=== PATIENT | male | born 1945 | race Caucasian/White ===

== ENCOUNTER 2017-01-26 11:17 | Inpatient (IN) | payer OTHER ==
[~2017-01-26] VITALS: Ht 182.8 cm; Wt 81.9 kg
--- NOTE | ~2017-01-26 | PR ---
[place], [place] PROGRESS NOTE NAME: NICHOLE DISLA UNIT #: [id number] ROOM: 525 DOCTOR: RIGO KILLIAN MD,TIARA BIRTHDATE: [birth year] DOS: 02/01/2017 SUBJECTIVE: The patient has been noted comfortable and continued to show reduction in symptoms of shortness of breath. Denies symptoms of chest pain. Coughing has been improving and the patient was noted with some edema of the lower extremities. He has been ambulating with assistance and getting physical therapy. OBJECTIVE: VITAL SIGNS: Normal temperature, respiratory rate 18, heart rate 63, blood pressure 137/77. The intake is 1250, output 1550 mL, negative fluid balance approximately 200 mL, pulse oxygen 97% saturation recorded on 3 L nasal cannula. HEENT: Noted without any acute changes. Chronic right corneal opacification. CARDIOVASCULAR: S1, S2 audible. LUNGS: The patient noted to have reduction of the breath sounds without any wheezing. There were no crackles. ABDOMEN: Soft and nontender. LABORATORY DATA: CBC this morning, mild anemia, otherwise normal. BMP of the patient was noted BUN 41, creatinine was normal. CO2 of 34. IMPRESSION: Progressive resolution of acute on chronic hypercapnic hypoxic respiratory failure with exacerbation of chronic obstructive pulmonary disease, other symptoms progressively. Mild edema of the lower extremity noted because of the steroids. PLAN OF MANAGEMENT: Change the Solu-Medrol to daily dose to 40 mg. Continuation of other therapy, plan of management and discharge plan, could be started for home discharge. Other supportive therapy, plan and management and care. Usual treatment. TIARA SIERRA MD CM:PNTRANS [phone] TIARA KILLIAN MD 02/01/17 1110 interface
--- NOTE | ~2017-01-26 | PR ---
[place], [place] PROGRESS NOTE NAME: NICHOLE DISLA UNIT #: [id number] ROOM: [facility] DOCTOR: ITARA FELIPE MD BIRTHDATE: [birth year] DOS: 01/30/2017 SUBJECTIVE: He has been noted awake and alert. Denies symptoms of chest pain. Shortness of breath has been improving. Coughing has been resolving; using the BiPAP as advised. There were no symptoms of chest pain or any abdominal pain. OBJECTIVE: VITAL SIGNS: Shows normal temperature this morning, respiratory rate 16, heart rate 76, blood pressure 124/70. Pulse oxygen saturation recorded as 97% BiPAP with nasal cannula 96% saturation. HEENT: Shows no new change. NECK: Supple. CARDIOVASCULAR: S1, S2 audible. LUNGS: Moderately to severely reduced breath sounds bilaterally, scattered wheezing, no crackles. ABDOMEN: Soft, nontender. LABORATORY DATA: CBC: WBC count was normal, platelet count normal, hemoglobin of 11.4, hematocrit of 37.5. BMP of the patient this morning noted BUN 45, creatinine was normal, carbon dioxide 36. CT scan of the chest completed yesterday without contrast was personally reviewed, shows area of small atelectasis, infiltration noted immediately in the left lower lobe consistent with findings of the chest x-ray. The findings were consistent with acute pneumonia with some area of atelectasis. There was no pulmonary nodules or lung mass. Diffuse emphysematous changes were noted as well. There was no abnormal mediastinal or hilar lymphadenopathy. IMPRESSION: The patient has been noted with current gradual improvement in [id number]-[id number] severe hypercapnic hypoxic respiratory failure with acute pneumonia in the left lower lobe are responding to the treatment progressively. PLAN OF MANAGEMENT: No changes in the therapy at this time. Continue the patient's current therapy. Plan as ordered. Usual care, other supportive plan of treatment and care. [place], [place] PROGRESS NOTE NAME: NICHOLE DISLA UNIT #: [id number] ROOM: [facility] DOCTOR: TIARA FELIPE MD BIRTHDATE: [birth year] TIARA SIERRA MD CM:PNTRANS [phone] TIARA KILLIAN MD 01/30/172209 interface
--- NOTE | ~2017-01-26 | PR ---
[place], [place] PROGRESS NOTE NAME: NICHOLE DISLA UNIT #: [id number] ROOM: 525 DOCTOR: TIARA FELIPE MD BIRTHDATE: [birth year] DOS: 02/02/2017 SUBJECTIVE: The patient has been noted comfortable at this time without any distress. There were no symptoms of coughing, chest pain, or any sputum expectoration noted. The patient has been using oxygen supplementation with nasal cannula. OBJECTIVE: VITAL SIGNS: Recorded shows his temperature was noted as normal. Respiratory rate recorded as 18, heart rate of 91, and blood pressure 126/66. Pulse oxygen saturation on 3 L nasal cannula was 95% saturation. HEENT: Shows no acute change. NECK: Supple. CARDIOVASCULAR: S1, S2 audible. LUNGS: Noted with decreased breath sounds in the lungs bilaterally. There were no crackles. ABDOMEN: Soft, nontender. LABORATORY DATA: The patient's chest x-ray this morning, the patient was noted with evidence of small pleural fluid and basilar areas of atelectasis. Arterial blood gases, which was done previously showed pH 7.33, pCO2 of 56, pO2 of 95. Earlier in the morning, CBC with normal WBC count, hemoglobin 11, and hematocrit 38.7. BMP that was done this morning showed BUN 42, creatinine was normal, and CO2 was 37. IMPRESSION: 1. Resolving acute hypoxic and hypercapnic respiratory failure. 2. Chronic metabolic alkalosis which is also improving progressively. 3. The patient with bilateral pleural fluid with possibly superimposed congestive heart failure would be considered. PLAN OF TREATMENT: Solu-Medrol dose has been changed to 40 mg daily. Consider diuretic therapy. Continue the current dose of Diamox 250 mg b.i.d., which has been previously decreased. [place], [place] PROGRESS NOTE NAME: NICHOLE DISLA UNIT #: [id number] ROOM: 525 DOCTOR: TIARA FELIPE MD BIRTHDATE: [birth year] TIARA SIERRA MD CM:PNTRANS [phone] TIARA KILLIAN MD 02/02/17 1430 interface
--- NOTE | ~2017-01-26 | CON ---
[place], [place] REPORT OF CONSULTATION NAME: NICHOLE DISLA UNIT #: [id number] ROOM: [facility] DOCTOR: RIGO KILLIAN MD,TIARA BIRTHDATE: [birth year] DOS: 01/27/2017 REASON FOR CONSULTATION: To assess the patient's current abnormal chest x-ray and the respiratory status. HISTORY OF PRESENT ILLNESS: The history was obtained from review of the medical records documentation and the past history of patient on this documentations previously. The patient is not able to give me any history by himself accurately. PAST MEDICAL HISTORY: 1. Known with history of advanced end-stage COPD. 2. History of chronic nicotine dependence. 3. Essential hypertension. 4. Vitamin D deficiency. 5. Past history of tuberculosis diagnosed and treated in 1989. It has been noted inactive. SOCIAL HISTORY: Reported as the patient lived at home. There was no history of alcohol use or any illicit drug use. The patient has been known with history of drinking beer in the past. Tobacco use for this patient noted as about a pack of cigarettes per day since teenager. Not sure if the patient is smoking cigarettes at this time. He has been known with history of Agent Butler exposure in the [place] in [place]. FAMILY HISTORY: Unknown. SURGICAL HISTORY: Surgical history was described as none. MEDICATIONS: Current medication listed as use of Lasix, Diamox, aspirin, Norvasc, Dulera, sliding scale insulin coverage, IV Solu-Medrol 60 mg q.8 hours, DuoNeb, Levaquin, and other p.r.n. medications. DRUG ALLERGIES: Noted as allergy to the NOVOCAIN. PHYSICAL EXAMINATION: GENERAL: A 72-year-old white male currently noted on the BiPAP without any acute distress. Height of 6 feet, weight 180 pounds, BMI 24.4 recorded. VITAL SIGNS: Shows temperature noted as normal, respiratory rate of 16 -18. Heart rate of 78-80. Blood pressure 130/79 - 149/95. Pulse oxygen saturation noted with the BiPAP 50% oxygen 91-92% saturation. HEENT: Examination shows head was atraumatic. Eyes nonicterus, loss of muscles of mastication, and temporal muscle mass loss. CARDIOVASCULAR SYSTEM: S1, S2 audible. LUNGS: Severe general reduction. Other breath sounds noted in the lungs bilaterally. ABDOMEN: Noted as flat, soft, nontender. EXTREMITIES: Shows loss of muscle mass. The patient without edema, clubbing, or cyanosis. CENTRAL NERVOUS SYSTEM: No gross focal deficit. Further examination could not [place], [place] REPORT OF CONSULTATION NAME: NICHOLE DISLA UNIT #: [id number] ROOM: [facility] DOCTOR: RIGO KILLIAN MD,TIARA BIRTHDATE: [birth year] be performed for this patient. SKIN: Shows some area of bruising of the skin in different areas with dryness of the skin. No lesions. MUSCULOSKELETAL: There were no gross deformity seen. LABORATORY DATA: The lactic acid yesterday noted on admission as normal. PT/PTT yesterday noted as normal. CBC on 01/26/2017: The patient's hemoglobin 11.3, hematocrit were normal, WBC count normal, platelet count 94,000. CMP of the patient 01/26/2017 noted as normal BUN and creatinine. CO2 was 58, chloride of 92. CPK was normal. Troponin was normal yesterday as well. Arterial blood gas of the patient that was done on admission yesterday 100% oxygen supplementation, pH 7.34, pCO2 107, pO2 of 54 on nonrebreather mask. Arterial blood gas which was done about 4 hours later with use of the BiPAP; pH of 7.38, pCO2 94, pO2 64.7 with 50% oxygen settings of 12/8. CMP this morning remains normal BUN and creatinine. The CO2 level was noted at 40, chloride of 94. CBC that was done 01/27/2017 shows mild anemia, platelet count was improved, were noted partially better at 116,000 today. Chest x-ray that was done for this patient shows evidence of infiltration and/or atelectasis, possibility of a nodular density in the left lower lobe. Unfortunately, the x-ray could not be personally reviewed because of the not working PAC system for this patient. IMPRESSION: 1. The patient who has been currently admitted to the hospital noted with changes in mental status with acute exacerbation of chronic obstructive pulmonary disease and acute bronchitis with possibility of ____ pneumonia in the left lower lobe to be considered. 2. Possibility of nodular density in the left lower lobe cannot be completely excluded with the chest x-ray. 3. The patient with history of chronic nicotine dependence as well. I am not sure if the patient is actively smoking cigarettes at this time. 4. Acute thrombocytopenia which was noted on admission was noted to be partially improved but still noted low given evidence of any active major bleed. 5. Acute exacerbation of chronic obstructive pulmonary disease and acute bronchitis for this patient as well. 6. Severe metabolic alkalosis secondary to chronic hypercarbia responding to the treatment with acetazolamide from yesterday. PLAN OF TREATMENT: The patient will be continued on current dose of steroids, bronchodilators and antibiotics. The patient has been ordered a CT scan by the primary care attending, which we will place on hold because of the patient's current instability and the CT scan will not add any immediate treatment changes in this patient. Upon medical stabilization, CT scan of the chest will be obtained for monitoring clear view. Continue antibiotics for the patient as previously ordered. Obtain the sputum for Gram stain and culture. Supportive therapy, plan of management, other care and treatment. Usual care, other supportive plan of management. Additional change in the treatment will be done based on the progression of the illness. Continue use of the BiPAP, setting will be changed for this patient because of severe relative hypoxia. The patient with a setting of 14/10 to optimize the oxygenation. The ventilation component was also noted optimal on the current BiPAP. Nicotine replacement [place], [place] REPORT OF CONSULTATION NAME: NICHOLE DISLA UNIT #: [id number] ROOM: [facility] DOCTOR: TIARA FELIPE MD BIRTHDATE: [birth year] patches will be ordered for the patient to overcome any nicotine withdrawal. If the patient's respiratory status worsens and the patient still remains in the intensive care unit, he might need to be intubated and started on mechanical ventilation at that time. At this time, there is no immediate need for intubation or use of mechanical ventilation for this patient. As the patient completed the high dose of Diamox yesterday, we will be starting lower dose for the patient today after completion of 6 initial doses of 500 mg 3 times a day. Thanks for allowing me to participate in the care of this patient. TIARA SIERRA MD CM:CONSTR:REPORT OF CONSULTATION 1454 01/28/17 0106 interface
--- NOTE | ~2017-01-26 | PR ---
[place], [place] PROGRESS NOTE NAME: NICHOLE DISLA UNIT #: [id number] ROOM: 525 DOCTOR: TIARA FELIPE MD BIRTHDATE: [birth year] DOS: 01/31/2017 SUBJECTIVE: He has been noted comfortable at this time without any distress. The patient's shortness of breath has been improving. The coughing has been noted decreased. Denies symptoms of chest pain. He has been using the oxygen supplementation and has not used the BiPAP last night. The patient sat on his chair. OBJECTIVE: VITAL SIGNS: For the patient, which was recorded shows the temperature noted as normal. The respiratory rate of the patient was recorded as 20. The heart rate was noted as 79. Blood pressure 102/50. Pulse oxygen saturation of the patient noted on 3 liters 95% saturation. HEENT: Examination shows no acute change. NECK: Supple. CARDIOVASCULAR: S1, S2 audible. LUNGS: Moderate decreased breath sounds bilaterally. ABDOMEN: Soft, nontender. LABORATORY DATA: CBC of 01/31/2017 noted normal WBC count. BMP for the patient was noted as BUN 50, creatinine was normal, glucose 158, CO2 35. IMPRESSION: 1. Resolving acute hypercapnic hypoxic respiratory failure with exacerbation of chronic obstructive pulmonary disease progressively. 2. The patient with severe debility with suspected protein calorie malnutrition. PLAN OF MANAGEMENT: Agreed for transfer of the patient from the intensive care unit to the other floor. Decrease the Solu-Medrol dose for this patient to 40 mg b.i.d. reduced from 60 mg b.i.d. Other supportive therapy, plan of management and care. Usual treatment. Additional change in treatment done based on progression of the illness. [place], [place] PROGRESS NOTE NAME: NICHOLE DISLA UNIT #: [id number] ROOM: 525 DOCTOR: TIARA FELIPE MD BIRTHDATE: [birth year] TIARA SIERRA MD CM:PNTRANS [phone] TIARA KILLIAN MD 01/31/17 1200 interface
--- NOTE | ~2017-01-26 | PR ---
[place], [place] PROGRESS NOTE NAME: NICHOLE DISLA UNIT #: [id number] ROOM: [facility] DOCTOR: RIGO KILLIAN MD,TIARA BIRTHDATE: [birth year] DOS: 01/29/2017 SUBJECTIVE: He has been noted much more awake and alert this morning. The patient denies symptoms of chest pain. The coughing has been noted decreased. The cough has been noted mostly nonproductive. Shortness of breath was improving. He has been using the BiPAP as recommended. OBJECTIVE: VITAL SIGNS: Showed normal temperature, respiratory rate 14, heart rate 72, blood pressure 116/80-109/66. Pulse oxygen saturation of the patient noted on 3 liters nasal canula 94% saturation. BiPAP 40% oxygen ____ was 98% saturation earlier. HEENT: Right cornea opacification which is chronic. NECK: Supple. CARDIOVASCULAR: S1, S2 audible. LUNGS: General reduction in the breath sounds bilaterally with expiratory wheezing. ABDOMEN: Soft, nontender and flat. EXTREMITIES: Shows mild edema. LABORATORY DATA: CMP this morning, BUN 45, creatinine was normal. Potassium 3.4. CO2 was 37. CBC: WBC count 11.6, hemoglobin 38.3, platelet count was normal and WBC count was normal. IMPRESSION: 1. Resolving severe acute hypercapnic and hypoxic respiratory failure. 2. Resolving severe metabolic alkalosis. 3. Hyperkalemia secondary to diuretic therapy and the Diamox. 4. Rule out pulmonary nodule. The patient versus atelectasis of the left lower lobe. PLAN OF MANAGEMENT: Continuation of the current therapy, plan of management at this time. Obtained the CT scan of the chest for this patient for assessment to rule out any pulmonary nodule in the right lower lobe. Supplementation of potassium. Other supportive plan of management and care. Usual treatment and other therapies. Additional treatment changes will be done based on the progression of the illness. The patient could be transferred from the intensive care unit to telemetry floor for continued medical management of his [id number] hypercapnic hypoxic respiratory failure and exacerbation of chronic obstructive pulmonary disease. [place], [place] PROGRESS NOTE NAME: NICHOLE DISLA UNIT #: [id number] ROOM: [facility] DOCTOR: TIARA FELIPE MD BIRTHDATE: [birth year] TIARA SIERRA MD CM:BENTRANS [phone] TIARA KILLIAN MD 01/30/17 1225 interface
--- NOTE | ~2017-01-26 | PR ---
[place], [place] PROGRESS NOTE NAME: NICHOLE DISLA UNIT #: [id number] ROOM: [facility] DOCTOR: RIGO KILLIAN MD,TIARA BIRTHDATE: [birth year] DOS: 01/28/2017 PULMONARY FOLLOWUP SUBJECTIVE: He has been noted fully awake and alert without any disorientation, yesterday noted with some agitation. Arterial blood gases were done for the patient shows appropriate improvement in the pH. The oxygenation was also noted, partially improved. The patient was started ____ of p.r.n. management of any agitation and anxiety. This morning, the patient noted fully awake and alert. Has used the BiPAP last night. OBJECTIVE: VITAL SIGNS: Normal temperature, respiratory rate 19, heart rate 89, blood pressure 104/62. Intake is 1040, output were not recorded, pulse oxygen saturation was recorded as 97% with the BiPAP and the oxygen supplementation nasal cannula. HEENT: Examination shows no acute change. NECK: Supple. CARDIOVASCULAR: S1, S2 audible. LUNGS: The patient was noted without any wheezing or crackles at the present time. Breaths are noted generally diminished bilaterally. ABDOMEN: Soft, nontender. LABORATORY DATA: CBC today: WBC count were noted normal, hemoglobin 11.5, hematocrit 37.9, platelet count noted 122,000. The BMP of patient was noted as BUN 30, creatinine was normal, glucose 157, CO2 was 38. IMPRESSION: 1. The patient has been currently noted with resolving acute on chronic hypercapnic and hypoxic respiratory failure gradually. 2. Acute exacerbation of chronic obstructive pulmonary disease. 3. History of nicotine dependence. PLAN OF MANAGEMENT: 1. Continuation of bronchodilators, oxygen supplementation. The hypercarbia has been improving significantly. Metabolic alkalosis was also noted markedly improved. CO2 level was noted less than 40. The potassium level noted within normal limits. 2. History of nicotine abuse. 3. Protein calorie malnutrition status. PLAN OF TREATMENT: Continue nutritional support. Continue the BiPAP, oxygen supplementation, bronchodilators, decrease the dose of Solu-Medrol. All other supportive plan of therapy and care as previously. Obtain the prealbumin level. [place], [place] PROGRESS NOTE NAME: NICHOLE DISLA UNIT #: [id number] ROOM: [facility] DOCTOR: RIGO KILLIAN MD,TIARA BIRTHDATE: [birth year] TIARA SIERRA MD CM:PNTRANS [phone] TIARA KILLIAN MD 01/28/17 1017 interface
[~2017-01-26 11:17] MED LIST: ACETAZOLAMIDE250 MG PO; AMLODIPINE BESYL5 MG PO; ASPIRIN81 M1 PO; CHOLECALCIFEROL1 CRY PO; LASIX40 MG PO; LEVAQUIN500 M2 PO; LISINOPRIL30 MG PO; NICODERM C21 MG/24 H TD; OXYGEN NAS; PREDNISONE10 MG PO; SYMBICORT1 AE1 INH; [UNRECOGNIZED DRUG - REMARK] NEB
[2017-01-26 11:27] VITALS: BP 130/79
[2017-01-26 11:46] LABS: ABG BASE EXCESS 26.2 mmol/L (-2.0-2.0); ARTERIAL BLOOD GAS PH 7.347 (7.35-7.45); ARTERIAL BLOOD GAS PO2 54.6 mmHg (80-90)
[2017-01-26 11:48] LABS: ABG CO2 CONTENT 60.2 mmol/L (23-27)
[2017-01-26 12:01] LABS: HEMOGLOBIN 11.3 g/dl (14.0-18.0); MEAN CELL VOLUME 109.4 fl (80.0-94.0); MEAN CORPUSCULAR HGB 29.4 pg (27.0-31.0); MEAN CORPUSCULAR HGB CONC 26.9 g/dl (33.0-37.0); MEAN PLATELET VOLUME 10.3 fl (9.6-12.3); PLATELET COUNT AUTOMATED 94 10*3/uL (130-400); RED BLOOD COUNT 3.84 10*6/uL (4.50-5.90); RED CELL DISTRI WIDTH 13.2 % (0-14.5); WHITE BLOOD COUNT 6.7 10*3/uL (4.8-10.8)
[2017-01-26 12:11] LABS: PROTHROMBIN TIME 10.9 SECONDS (9.0-12.4)
[2017-01-26 12:17] VITALS: BP 123/80
[2017-01-26 12:19] LABS: ALKALINE PHOSPHATASE 50 U/L (45-117); BILIRUBIN, TOTAL 0.4 mg/dl (0.2-1.0); BUN 17 mg/dl (7-24); CHLORIDE 92 mmol/L (98-107); CPK 23 U/L (39-308); EST GLOM FILT AFRICAN AMERICAN > 60 ml/min; GLUCOSE 116 mg/dL (65-99); MAGNESIUM 1.9 mg/dL (1.5-2.1); POTASSIUM 4.2 mmol/L (3.5-5.1); SGOT/AST 12 IU/L (3-35); SGPT/ALT 9 U/L (12-78); SODIUM 145 mmol/L (136-145); TOTAL PROTEIN 6.2 gm/dL (6.4-8.2)
[2017-01-26 12:20] LABS: TROPONIN I 0.017 ng/ml (<0.045)
[2017-01-26 12:21] LABS: EOSINOPHIL # 0.1 10*3/uL (0-0.4); EOSINOPHILS 2 % (1-4); LYMPHOCYTE # 1.7 10*3/uL (1.3-4.4); METAMYELOCYTES 1 % (0-0); NEUTROPHIL # 4.8 10*3/uL (2.3-7.9); NEUTROPHILS 71 % (47-73); PLATELET SUFFICIENCY LOW (NORMAL); TOTAL CELLS COUNTED 100 #CELLS
[2017-01-26 12:23] LABS: STOMATOCYTE MODERATE
[2017-01-26 12:31] LABS: CARBON DIOXIDE 58 mmol/L (21-32)
[2017-01-26 12:36] VITALS: BP 123/80
[2017-01-26 13:28] VITALS: BP 122/73
[2017-01-26] MEDS ORDERED: VITAMIN B-12100 MCG PO (13:39)
[2017-01-26 15:26] LABS: ABG BASE EXCESS 25.6 mmol/L (-2.0-2.0); ABG CO2 CONTENT 58.5 mmol/L (23-27); ABG HCO3 55.6 mmol/l (22-26); ABG TEMPERATURE 98.6 F (98.0-99.0); ARTERIAL BLOOD GAS PH 7.387 (7.35-7.45); ARTERIAL BLOOD GAS PO2 64.7 mmHg (80-90)
[2017-01-26 16:00] VITALS: BP 130/80
[2017-01-26 20:00] VITALS: BP 132/80
[2017-01-27] VITALS: BP 138/96
[2017-01-27 04:00] VITALS: BP 149/95
[2017-01-27 06:24] LABS: HEMOGLOBIN A1c 5.6 % (4.8-5.6)
[2017-01-27 06:37] LABS: ALBUMIN 3.2 gm/dl (3.1-4.5); ALKALINE PHOSPHATASE 51 U/L (45-117); BILIRUBIN, TOTAL 0.6 mg/dl (0.2-1.0); BUN 17 mg/dl (7-24); CARBON DIOXIDE 40 mmol/L (21-32); CHLORIDE 94 mmol/L (98-107); CHOLESTEROL 162 mg/dL (<200); EST GLOM FILT AFRICAN AMERICAN > 60 ml/min; FREE T4 1.08 ng/dl (0.76-1.46); GLUCOSE 135 mg/dL (65-99); HDL CHOLESTEROL 72 mg/dl (40-60); LDL CHOLESTEROL 75 mg/dL (9-159); POTASSIUM 3.9 mmol/L (3.5-5.1); SGOT/AST 12 IU/L (3-35); SGPT/ALT 11 U/L (12-78); SODIUM 140 mmol/L (136-145); TOTAL PROTEIN 6.9 gm/dL (6.4-8.2); TRIGLYCERIDES 76 mg/dl (<150); VLDL CHOLESTEROL 15 mg/dL (6-40)
[2017-01-27 06:42] LABS: THYROID STIM HORMONE (HS) 0.155 uIU/ml (0.358-4.75)
[2017-01-27 06:50] LABS: BASO % 0.2 % (0.0-1.0); HEMOGLOBIN 11.9 g/dl (14.0-18.0); IG # 0.1 10*3/uL (0.0-0.1); LYMPH # 0.7 10*3/uL (1.3-4.4); LYMPH % 13.1 % (27.0-41.0); MEAN CORPUSCULAR HGB 28.9 pg (27.0-31.0); MEAN CORPUSCULAR HGB CONC 28.3 g/dl (33.0-37.0); MEAN PLATELET VOLUME 11.2 fl (9.6-12.3); MONO # 0.1 10*3/uL (0.1-1.0); MONO % 1.7 % (3.0-9.0); NEUT # 4.6 10*3/uL (2.3-7.9); NEUT % 84.1 % (47.0-73.0); PLATELET COUNT AUTOMATED 116 10*3/uL (130-400); RED BLOOD COUNT 4.12 10*6/uL (4.50-5.90); WHITE BLOOD COUNT 5.4 10*3/uL (4.8-10.8)
[2017-01-27 06:51] LABS: MEAN CELL VOLUME 101.9 fl (80.0-94.0)
[2017-01-27 08:00] VITALS: BP 137/84
[2017-01-27 12:00] VITALS: BP 130/74
[2017-01-27 16:00] VITALS: BP 124/80; BP 149/92
[2017-01-27 18:26] LABS: ABG CO2 CONTENT 40.3 mmol/L (23-27); ABG HCO3 38.3 mmol/l (22-26); ARTERIAL BLOOD GAS PH 7.386 (7.35-7.45); ARTERIAL BLOOD GAS PO2 76.8 mmHg (80-90)
[2017-01-27 20:00] VITALS: BP 119/73
[2017-01-27 21:10] LABS: BILIRUBIN NEGATIVE (NEGATIVE); BLOOD NEGATIVE (NEGATIVE); CLARITY CLEAR (CLEAR); COLOR YELLOW (YELLOW); GLUCOSE NEGATIVE (NEGATIVE); KETONE NEGATIVE (NEGATIVE); LEUKO ESTERASE NEGATIVE (NEGATIVE); NITRITE NEGATIVE (NEGATIVE); PROTEIN TRACE (NEGATIVE); UROBILINOGEN 0.2 E.U./dl (0.2-1.0)
[2017-01-27 21:25] LABS: BACTERIA TRACE; URINE REFLEX COMMENT NO (NO)
[2017-01-28] VITALS: BP 130/85
[2017-01-28 04:00] VITALS: BP 140/88
[2017-01-28 06:20] LABS: BILIRUBIN, TOTAL 0.3 mg/dl (0.2-1.0); CARBON DIOXIDE 38 mmol/L (21-32); CHLORIDE 98 mmol/L (98-107); EST GLOM FILT AFRICAN AMERICAN > 60 ml/min; GLUCOSE 157 mg/dL (65-99); POTASSIUM 3.5 mmol/L (3.5-5.1); SGOT/AST 12 IU/L (3-35); SGPT/ALT 12 U/L (12-78); SODIUM 138 mmol/L (136-145); TOTAL PROTEIN 6.4 gm/dL (6.4-8.2)
[2017-01-28 06:21] LABS: BASO % 0.1 % (0.0-1.0); HEMATOCRIT 37.9 % (42.0-52.0); HEMOGLOBIN 11.5 g/dl (14.0-18.0); LYMPH # 0.5 10*3/uL (1.3-4.4); LYMPH % 6.4 % (27.0-41.0); MEAN CORPUSCULAR HGB 29.8 pg (27.0-31.0); MEAN CORPUSCULAR HGB CONC 30.3 g/dl (33.0-37.0); MEAN PLATELET VOLUME 11.1 fl (9.6-12.3); MONO # 0.3 10*3/uL (0.1-1.0); MONO % 3.6 % (3.0-9.0); NEUT # 6.7 10*3/uL (2.3-7.9); NEUT % 89.5 % (47.0-73.0); PLATELET COUNT AUTOMATED 122 10*3/uL (130-400); RED BLOOD COUNT 3.86 10*6/uL (4.50-5.90); RED CELL DISTRI WIDTH 13.5 % (0-14.5); WHITE BLOOD COUNT 7.5 10*3/uL (4.8-10.8)
[2017-01-28 06:22] LABS: ALKALINE PHOSPHATASE 43 U/L (45-117)
[2017-01-28 06:28] LABS: BUN 30 mg/dl (7-24)
[2017-01-28 06:40] LABS: MEAN CELL VOLUME 98.2 fl (80.0-94.0)
[2017-01-28 08:00] VITALS: BP 104/62
[2017-01-28 12:00] VITALS: BP 111/83
[2017-01-28 16:00] VITALS: BP 110/72
[2017-01-28 20:00] VITALS: BP 111/69
[2017-01-29] VITALS: BP 104/67
[2017-01-29 04:00] VITALS: BP 109/66
[2017-01-29 05:55] LABS: BILIRUBIN, TOTAL 0.2 mg/dl (0.2-1.0); CARBON DIOXIDE 37 mmol/L (21-32); CHLORIDE 96 mmol/L (98-107); EST GLOM FILT AFRICAN AMERICAN > 60 ml/min; GLUCOSE 169 mg/dL (65-99); POTASSIUM 3.4 mmol/L (3.5-5.1); SGOT/AST 10 IU/L (3-35); SGPT/ALT 7 U/L (12-78); SODIUM 138 mmol/L (136-145); TOTAL PROTEIN 6.2 gm/dL (6.4-8.2)
[2017-01-29 05:56] LABS: ALKALINE PHOSPHATASE 45 U/L (45-117)
[2017-01-29 05:58] LABS: HEMATOCRIT 38.3 % (42.0-52.0); HEMOGLOBIN 11.6 g/dl (14.0-18.0); IG # 0.1 10*3/uL (0.0-0.1); LYMPH # 0.8 10*3/uL (1.3-4.4); LYMPH % 8.1 % (27.0-41.0); MEAN CELL VOLUME 98.2 fl (80.0-94.0); MEAN CORPUSCULAR HGB 29.7 pg (27.0-31.0); MEAN CORPUSCULAR HGB CONC 30.3 g/dl (33.0-37.0); MEAN PLATELET VOLUME 10.9 fl (9.6-12.3); MONO # 0.7 10*3/uL (0.1-1.0); MONO % 7.3 % (3.0-9.0); NEUT # 7.8 10*3/uL (2.3-7.9); NEUT % 83.8 % (47.0-73.0); PLATELET COUNT AUTOMATED 122 10*3/uL (130-400); RED CELL DISTRI WIDTH 13.7 % (0-14.5); WHITE BLOOD COUNT 9.3 10*3/uL (4.8-10.8)
[2017-01-29 06:00] LABS: BUN 45 mg/dl (7-24)
[2017-01-29 08:00] VITALS: BP 116/80
[2017-01-29 12:00] VITALS: BP 96/57
[2017-01-29 14:18] LABS: FOLIC ACID 10.36 ng/mL (>5.38)
[2017-01-29 16:00] VITALS: BP 101/68
[2017-01-29 20:00] VITALS: BP 103/62
[2017-01-30] VITALS: BP 96/58
[2017-01-30 04:00] VITALS: BP 117/77
[2017-01-30 05:55] LABS: BUN 45 mg/dl (7-24); CARBON DIOXIDE 36 mmol/L (21-32); CHLORIDE 100 mmol/L (98-107); EST GLOM FILT AFRICAN AMERICAN > 60 ml/min; GLUCOSE 158 mg/dL (65-99); SODIUM 141 mmol/L (136-145)
[2017-01-30 06:05] LABS: HEMATOCRIT 37.5 % (42.0-52.0); HEMOGLOBIN 11.4 g/dl (14.0-18.0); IG # 0.1 10*3/uL (0.0-0.1); LYMPH # 0.8 10*3/uL (1.3-4.4); LYMPH % 9.2 % (27.0-41.0); MEAN CELL VOLUME 97.9 fl (80.0-94.0); MEAN CORPUSCULAR HGB 29.8 pg (27.0-31.0); MEAN CORPUSCULAR HGB CONC 30.4 g/dl (33.0-37.0); MONO # 0.6 10*3/uL (0.1-1.0); MONO % 6.6 % (3.0-9.0); NEUT # 7.6 10*3/uL (2.3-7.9); NEUT % 83.6 % (47.0-73.0); PLATELET COUNT AUTOMATED 115 10*3/uL (130-400); RED BLOOD COUNT 3.83 10*6/uL (4.50-5.90); RED CELL DISTRI WIDTH 13.8 % (0-14.5)
[2017-01-30 08:00] VITALS: BP 124/70
[2017-01-30 16:00] VITALS: BP 101/57
[2017-01-30 20:00] VITALS: BP 93/60
[2017-01-31] VITALS: BP 108/66
[2017-01-31 05:59] LABS: BUN 50 mg/dl (7-24); CARBON DIOXIDE 35 mmol/L (21-32); CHLORIDE 102 mmol/L (98-107); EST GLOM FILT AFRICAN AMERICAN > 60 ml/min; GLUCOSE 158 mg/dL (65-99); SODIUM 140 mmol/L (136-145)
[2017-01-31 06:12] LABS: HEMATOCRIT 40.2 % (42.0-52.0); LYMPH # 0.8 10*3/uL (1.3-4.4); LYMPH % 8.8 % (27.0-41.0); MEAN CELL VOLUME 97.3 fl (80.0-94.0); MEAN CORPUSCULAR HGB 29.1 pg (27.0-31.0); MEAN CORPUSCULAR HGB CONC 29.9 g/dl (33.0-37.0); MEAN PLATELET VOLUME 11.2 fl (9.6-12.3); MONO # 0.7 10*3/uL (0.1-1.0); NEUT # 7.2 10*3/uL (2.3-7.9); NEUT % 82.7 % (47.0-73.0); PLATELET COUNT AUTOMATED 118 10*3/uL (130-400); RED BLOOD COUNT 4.13 10*6/uL (4.50-5.90); WHITE BLOOD COUNT 8.7 10*3/uL (4.8-10.8)
[2017-01-31 08:00] VITALS: BP 102/50
[2017-01-31 16:00] VITALS: BP 104/70
[2017-01-31 20:00] VITALS: BP 122/78
[2017-02-01] VITALS: BP 112/73
[2017-02-01 04:00] VITALS: BP 97/56
[2017-02-01 06:20] LABS: BASO % 0.1 % (0.0-1.0); HEMATOCRIT 38.1 % (42.0-52.0); HEMOGLOBIN 11.8 g/dl (14.0-18.0); LYMPH # 0.8 10*3/uL (1.3-4.4); LYMPH % 10.1 % (27.0-41.0); MEAN CELL VOLUME 96.2 fl (80.0-94.0); MEAN CORPUSCULAR HGB 29.8 pg (27.0-31.0); MEAN PLATELET VOLUME 11.3 fl (9.6-12.3); MONO # 0.6 10*3/uL (0.1-1.0); MONO % 8.1 % (3.0-9.0); NEUT # 6.4 10*3/uL (2.3-7.9); NEUT % 81.3 % (47.0-73.0); PLATELET COUNT AUTOMATED 117 10*3/uL (130-400); RED BLOOD COUNT 3.96 10*6/uL (4.50-5.90); RED CELL DISTRI WIDTH 13.9 % (0-14.5); WHITE BLOOD COUNT 7.8 10*3/uL (4.8-10.8)
[2017-02-01 06:41] LABS: BUN 41 mg/dl (7-24); CARBON DIOXIDE 34 mmol/L (21-32); CHLORIDE 103 mmol/L (98-107); EST GLOM FILT AFRICAN AMERICAN > 60 ml/min; GLUCOSE 157 mg/dL (65-99); POTASSIUM 4.1 mmol/L (3.5-5.1); SODIUM 141 mmol/L (136-145)
[2017-02-01 08:00] VITALS: BP 137/77
[2017-02-01 12:00] VITALS: BP 134/59
[2017-02-01 16:00] VITALS: BP 104/63
[2017-02-01 20:00] VITALS: BP 97/56
[2017-02-02] VITALS: BP 108/84
[2017-02-02 04:00] VITALS: BP 135/71
[2017-02-02 06:16] LABS: BASO % 0.1 % (0.0-1.0); EOS # 0.1 10*3/uL (0.0-0.4); EOS % 0.8 % (1.0-4.0); HEMATOCRIT 38.7 % (42.0-52.0); HEMOGLOBIN 11.8 g/dl (14.0-18.0); LYMPH # 2.2 10*3/uL (1.3-4.4); LYMPH % 20.5 % (27.0-41.0); MEAN CELL VOLUME 96.3 fl (80.0-94.0); MEAN CORPUSCULAR HGB 29.4 pg (27.0-31.0); MEAN CORPUSCULAR HGB CONC 30.5 g/dl (33.0-37.0); MEAN PLATELET VOLUME 10.9 fl (9.6-12.3); MONO # 1.4 10*3/uL (0.1-1.0); MONO % 12.6 % (3.0-9.0); NEUT # 7.1 10*3/uL (2.3-7.9); NEUT % 65.7 % (47.0-73.0); PLATELET COUNT AUTOMATED 123 10*3/uL (130-400); RED BLOOD COUNT 4.02 10*6/uL (4.50-5.90); WHITE BLOOD COUNT 10.8 10*3/uL (4.8-10.8)
[2017-02-02 06:45] LABS: BUN 42 mg/dl (7-24); CARBON DIOXIDE 33 mmol/L (21-32); CHLORIDE 104 mmol/L (98-107); EST GLOM FILT AFRICAN AMERICAN > 60 ml/min; GLUCOSE 100 mg/dL (65-99); POTASSIUM 3.8 mmol/L (3.5-5.1); SODIUM 140 mmol/L (136-145)
[2017-02-02 07:26] LABS: ABG CO2 CONTENT 31.2 mmol/L (23-27); ABG HCO3 29.4 mmol/l (22-26); ABG TEMPERATURE 98.4 F (98.0-99.0); ARTERIAL BLOOD GAS PH 7.339 (7.35-7.45); ARTERIAL BLOOD GAS PO2 95.8 mmHg (80-90)
[2017-02-02 07:59] LABS: BILIRUBIN NEGATIVE (NEGATIVE); BLOOD TRACE-INTACT (NEGATIVE); CLARITY CLEAR (CLEAR); COLOR YELLOW (YELLOW); GLUCOSE NEGATIVE (NEGATIVE); KETONE NEGATIVE (NEGATIVE); LEUKO ESTERASE NEGATIVE (NEGATIVE); NITRITE NEGATIVE (NEGATIVE); PROTEIN NEGATIVE (NEGATIVE); SPECIFIC GRAVITY <= 1.005 (1.005-1.030); UROBILINOGEN 0.2 E.U./dl (0.2-1.0)
[2017-02-02 08:00] VITALS: BP 126/66
[2017-02-02 09:39] LABS: EPITHELIAL CELLS 0-2; RBC 0-2 rbc/hpf (0-2); WBC 0-2 wbc/hpf (0-5)
[2017-02-02] MEDS ORDERED: ACETAZOLAMIDE250 MG PO (11:54)
[2017-02-02] MEDS ORDERED: LEVAQUIN750 M1 PO (11:55)
[2017-02-02] MEDS ORDERED: PREDNISONE10 MG PO (11:55)
[2017-02-02 12:00] VITALS: BP 118/93
== END 2017-02-02 13:54 | disposition home health service (06) | DRG 189 ==
LOC: ED 11:17 → ICCU 12:24 → EDHOLD 12:24 → ICCU 12:33 → 5E 01-31 10:20
PROVIDERS: Emergency Medicine; Internal Medicine; Internal Medicine Critical Care Medicine; Internal Medicine Nephrology; Student in an Organized Health Care Education/Training Program
PROC: 5A09457 Assistance with Respiratory Ventilation, 24-96 Consecutive Hours, Continuous Positive Airway Pressure (ICD-10-PCS; principal; 2017-01-26)
DX: J96.21 Acute and chronic respiratory failure with hypoxia (principal); N17.0 Acute kidney failure with tubular necrosis; J15.6 Pneumonia due to other Gram-negative bacteria; G93.41 Metabolic encephalopathy; E87.3 Alkalosis; D69.6 Thrombocytopenia, unspecified; E11.22 Type 2 diabetes mellitus with diabetic chronic kidney disease; E44.0 Moderate protein-calorie malnutrition; J44.1 Chronic obstructive pulmonary disease with (acute) exacerbation; J44.0 Chronic obstructive pulmonary disease with (acute) lower respiratory infection; J96.22 Acute and chronic respiratory failure with hypercapnia; N18.3 Chronic kidney disease, stage 3 (moderate); D53.9 Nutritional anemia, unspecified; I12.9 Hypertensive chronic kidney disease with stage 1 through stage 4 chronic kidney disease, or unspecified chronic kidney disease; I71.4 Abdominal aortic aneurysm, without rupture; F17.210 Nicotine dependence, cigarettes, uncomplicated; E87.5 Hyperkalemia; T50.2X5A Adverse effect of carbonic-anhydrase inhibitors, benzothiadiazides and other diuretics, initial encounter; J20.9 Acute bronchitis, unspecified; Z80.9 Family history of malignant neoplasm, unspecified; Z82.5 Family history of asthma and other chronic lower respiratory diseases; Z88.4 Allergy status to anesthetic agent; Z79.82 Long term (current) use of aspirin; Z99.81 Dependence on supplemental oxygen; Y92.89 Other specified places as the place of occurrence of the external cause; Z71.6 Tobacco abuse counseling; Z79.899 Other long term (current) drug therapy; Z68.24 Body mass index [BMI] 24.0-24.9, adult

== ENCOUNTER 2017-06-29 23:54 | Inpatient (IN) | payer MEDICARE, OTHER ==
[~2017-06-29] VITALS: Ht 182.9 cm; Wt 81.2 kg
--- NOTE | ~2017-06-29 | PR ---
[place], [place] PROGRESS NOTE NAME: NICHOLE DISLA UNIT #: [id number] ROOM: 416 DOCTOR: RIGO KILLIAN MD,TIARA BIRTHDATE: [birth year] DOS: 07/03/2017 SUBJECTIVE: The patient was noted comfortable at this time, shows continued gradual reduction and improvement in respiratory status, remains on the medical floor at this time. The patient was today seen independently [id number] encounter, history was confirmed. Physical examination was performed. The assessment and management, patient states that it was completely personally note done by the medical receptionist was approved. PHYSICAL EXAMINATION: VITAL SIGNS: Normal vital signs this morning, pulse oxygen saturation on 5 liters nasal cannula 94% saturation. LUNGS: General reduction in breath sounds, there was no wheezing or crackles. ABDOMEN: Soft, nontender. EXTREMITIES: Without any acute edema. LABORATORY DATA: CBC, mild anemia, otherwise normal. CMP; BUN 39, creatinine was normal. Carbon dioxide noted as 38. IMPRESSION: At this time, the patient has been noted with progressive resolution of acute severe hypercapnic hypoxic respiratory metabolic alkalosis, exacerbation of COPD and noted with current debility. PLAN OF MANAGEMENT: He could be transferred to the nursing facility for further continued care with the tapering dose of prednisone and antibiotics. Use of the BiPAP and other medical management. TIARA SIERRA MD CM:PNDAVON [phone] TIARA KILLIAN MD 07/04/17 0226 interface
--- NOTE | ~2017-06-29 | PR ---
[place], [place] PROGRESS NOTE [id number] UN[facility] #: [id number] ROOM: 416 DOCTOR: RIGO KILLIAN MDTIARA BIRTHDATE: [birth year] DOS: 07/01/2017 SUBJECTIVE: The patient seen and examined on 07/01/2017 in the Intensive Care Unit. He remains in the Intensive Care Unit. He has been using the BiPAP as ordered. He had been noted much more awake and alert this morning. Denies symptoms of chest pain, shortness of breath has been noted, decreased cough is noted mild to moderate without any sputum expectoration. Denies symptoms of hemoptysis. The patient denies symptoms of chest pain. Denies any abdominal pain. OBJECTIVE: VITAL SIGNS: Shows the temperature was noted as normal. The respiratory rate range between 20-18. The heart rate was noted from 87-81. Blood pressure was noted as 125/72-126/84. The pulse oxygen saturation recorded as 86% on 5 liters canula with the BiPAP of 99% with 65% oxygen supplementation. HEENT: Shows head was atraumatic. Eyes nonicterus. NECK: Supple. CARDIOVASCULAR: S1, S2 audible. LUNGS: Noted diffuse reduction in the breath sounds bilaterally with expiratory wheezing with occasional crackles. ABDOMEN: Soft, nontender. EXTREMITIES: No edema, clubbing, cyanosis. SKIN: Visible skin, some dryness of the skin. CENTRAL NERVOUS SYSTEM: Cranial nerves 2-12 intact. MUSCULOSKELETAL: No deformities. LABORATORY DATA: The patient's CBC this morning, on 07/01/2017, WBC count normal, hemoglobin 10.2, hematocrit 35.6, platelet count 121,000. CMP on 07/01/2017, BUN 31, creatinine was normal, glucose 134, CO2 of 40, chloride of 95. IMPRESSION: 1. The patient who has been currently noted with acute on chronic severe hypercapnic and hypoxic respiratory failure, still require significant amount of oxygen supplementation, BiPAP with gradual reduction noted in the last 24 hours. 2. Metabolic alkalosis. 3. Acute previous history of nicotine dependence. 4. Tremors of the hands was also reported most likely essential tremor or related to the medication. 5. Severe metabolic alkalosis, which has been noted significant reduction of the bicarbonate with the use of the Diamox. The patient does not show any signs of hyperkalemia. 6. Acute bronchitis as well. 7. Overall severe debility, persisted. PLAN OF TREATMENT: Continue high dose of corticosteroids. Continuation of bronchodilators and oxygen supplementation. Continuation of antibiotics. Monitor respiratory status as well as all the cultures. BiPAP will be gradually weaned off for the patient based on improvement and resolution of symptom. Continue nutrition support. Monitor lab closely. Supportive therapy, plan of [place], [place] PROGRESS NOTE NAME: NICHOLE DISLA UNIT #: [id number] ROOM: [facility] DOCTOR: RIGO KILLIAN MD,TIARA BIRTHDATE: [birth year] management. The mental status changes have been improved significantly at this time. TIARA SIERRA MD CM:PNTRANS [phone] TIARA KILLIAN MD 07/04/171808 interface
--- NOTE | ~2017-06-29 | PR ---
[place], [place] PROGRESS NOTE NAME: NICHOLE DISLA UNIT #: [id number] ROOM: 416 DOCTOR: RIGO KILLIAN MD,TIARA BIRTHDATE: [birth year] DOS: 07/02/2017 SUBJECTIVE: The patient was independently seen today jnyq-[id number] encounter, history was personally confirmed. The physical examination performed. All the available labs were reviewed. The assessment and management for today's visit were personally done as well. The patient remains in the Intensive Care Unit overnight. He has been showing continued reduction and improvement in respiratory symptom. He has been still noticed with some tremors of the hand, may be essential tremor would be considered. There was no etiology, otherwise determined. The note done by the medical transcription radiology was approved. This morning, the patient was noted use of oxygen supplementation, saturating very well with that. PHYSICAL EXAMINATION: VITAL SIGNS: Reviewed and essentially noted normal vital signs. Pulse oxygen saturation recorded on 5 liters nasal cannula, BiPAP 55%, 98% saturation earlier noted. HEENT: Head and neck examination essentially noted chronic changes. LUNGS: Noted with reduction of wheezing. Breaths are noted mildly decreased bilaterally. ABDOMEN: Soft, flat, nontender. EXTREMITIES: Without any edema. Chronic changes. MUSCULOSKELETAL: No deformities. CENTRAL NERVOUS SYSTEM: Intact. The patient remains awake, alert, oriented today. LABORATORY DATA: BUN 40, creatinine normal, glucose mildly elevated at 145. CO2 40. CBC, otherwise mild anemia noted with mild reduction in platelet 128,000. IMPRESSION: 1. Resolving acute severe hypercapnic and hypoxic respiratory failure gradually. 2. Thrombocytopenia noted mild at this time. Etiology remains unclear. 3. Resolving hypoxia as well. 4. Acute tracheobronchitis as well. 5. Resolving metabolic alkalosis. 6. Protein-calorie malnutrition and overall debility. PLAN OF TREATMENT: The patient will be continued on bronchodilators, oxygen supplementation, BiPAP in use intermittent during the daytime and continuous at night time. Continuation of the other previous treatment plan and management previously. Reduction of the Solu-Medrol may be started from tomorrow morning. Current dose of 40 mg q.8 hours would not be required to be changed today. [place], [place] PROGRESS NOTE NAME: NICHOLE DISLA UNIT #: [id number] ROOM: 416 DOCTOR: TIARA FELIPE MD BIRTHDATE: [birth year] TIARA SIERRA MD CM:PNDAVON [id number] TIARA KILLIAN MD 07/03/1746 interface
--- NOTE | ~2017-06-29 | PR ---
[place], [place] PROGRESS NOTE NAME: NICHOLE DISLA UNIT #: [id number] ROOM: 416 DOCTOR: LEANNA BURGESS DO BIRTHDATE: [birth year] DOS: 07/02/2017 SUBJECTIVE: The patient was seen and examined at bedside. The patient reports that his breathing continues to improve daily. He has no new complaints at this time. The patient reports no cough, no shortness of breath, no wheezing. LABORATORY DATA: White count 5.7, hemoglobin 10.2, hematocrit 33.9. platelet count 128. BMP was normal except for mildly elevated carbon dioxide of 40. Blood cultures remain negative. Nares for MRSA was negative. PHYSICAL EXAMINATION: VITAL SIGNS: Temperature 99.2, pulse is 89, respirations 14, blood pressure 108/75, pulse ox is 94% on 5 liters nasal cannula. GENERAL APPEARANCE: The patient is alert and oriented x 3, in no acute distress. HEENT: Eyes are clear. No injection. No nasal discharge. Nares are patent. Mucous membranes are moist. CARDIAC: Regular rate and rhythm. No murmurs, gallops or rubs. PULMONARY: Decreased breath sounds in all lung nelson, mild wheezing noted, crackles at the lung bases. ABDOMEN: Soft, nontender, positive bowel sounds. EXTREMITIES: No clubbing, cyanosis, erythema, edema. MUSCULOSKELETAL: Negative without deformities. NEUROLOGIC: No focal deficits. IMPRESSION: 1. Acute on chronic obstructive pulmonary disease with chronic hypoxia and hypercapnia. 2. Severe metabolic alkalosis secondary to the hypercarbia, status, improved. 3. Nicotine abuse. 4. Acute bronchitis. 5. Debility. TREATMENT PLAN: The patient was started on Diamox 250 q. 8 hours for 2 days. CO2 levels have improved. We will continue with current treatment, DuoNeb, Solu-Medrol 60 q. 8 hours, Mucinex and Levaquin. No change in the current plan. The patient continues to improve. We will continue to follow the patient. LEANNA DE JESUSETTE [place], [place] PROGRESS NOTE NAME: NICHOLE DISLA UNIT #: [id number] ROOM: [facility] DOCTOR: LEANNA BURGESS DO BIRTHDATE: [birth year] TIARA SIERRA MD CM:PNDAVON [id number] LEANNA BURGESS DO 07/03/17 0257 interface
--- NOTE | ~2017-06-29 | EKG ---
[place], [place] ELECTROCARDIOGRAM REPORT NAME: NICHOLE DISLA UNIT #: [id number] ROOM: [place] [address] DOCTOR: RIGO KILLIAN MD,TIARA BIRTHDATE: [birth year] DOS: 06/30/2017 TIME: Done at 12:16 a.m. Normal sinus rhythm noted with heart rate of 82 beats per minute. The criteria for LVH noted for this patient as well with left ventricular hypertrophy. TIARA SIERRA MD CM:EKGRPT:ELECTROCARDIOGRAM REPORT [id number] TIARA KILLIAN MD
--- NOTE | ~2017-06-29 | CON ---
[place], [place] REPORT OF CONSULTATION NAME: NICHOLE DISLA UNIT #: [id number] ROOM: [place] [address] DOCTOR: RIGO KILLIAN MD,TIARA BIRTHDATE: [birth year] DOS: 06/30/2017 REASON FOR CONSULTATION: The patient to be assessed for the vcaei-ga-nvoccas hypercapnic and hypoxic respiratory failure with exacerbation of chronic obstructive pulmonary disease. REQUESTING PHYSICIAN: Hospitalist services. HISTORY OF PRESENT ILLNESS: This is a 72-year-old male patient who has been admitted to the hospital under the care of Dr. Jassi Perez. The patient was admitted to the hospital this morning as he has reported symptoms of having progressive increased shortness of breath occurring at home for the past few days. The oxygen desaturation has been noted and described to be progressive. He has not been noted having any symptoms of chest pain. The patient was admitted to the hospital noted with [id number] severe hypercapnic hypoxic respiratory failure with lethargy and weakness. He has been given the trial of the BiPAP in the Emergency Room and then later on admitted to the Intensive Care Unit. The patient was complaining of increased coughing, frequently intense, which are described mostly nonproductive, associated with wheezing and tightness in the chest. REVIEW OF SYSTEMS: CONSTITUTIONAL: Denies any fever, chills, fatigue or tiredness. EYES: Denies any burning, redness, or tenderness. EARS, NOSE, THROAT SYMPTOMS: Denies sore throat, hoarseness, otalgia, postnasal drainage or epistaxis. CARDIOVASCULAR: Denies angina pain, edema, or pain of the lower extremity. GASTROINTESTINAL: Dysphagia, nausea, vomiting, diarrhea, abdominal pain, hematemesis, melena. Denies dysphagia or any abnormal weight loss history. GENITOURINARY: No dysuria, suprapubic pain, or hematuria. MUSCULOSKELETAL: No acute joint pain, redness, or tenderness. SKIN: Denies lesions or rashes. CENTRAL NERVOUS SYSTEM: Denies any headache, diplopia, syncopal episodes or seizures. Remaining systems were reviewed with the patient, they were noted all negative. PAST MEDICAL HISTORY: 1. Record reviewed for the patient was noted with previous hospitalization in January 2017 for the medical management of acute hypoxic and hypercapnic respiratory failure with bilateral pleural fluid with congestive heart failure combination. The patient has been treated and then subsequently discharged home. 2. History of end-stage chronic obstructive pulmonary disease. 3. Essential hypertension. 4. Vitamin D deficiency. 5. Tuberculosis treated in 1989. It has been noted inactive. PAST SURGICAL HISTORY: The patient was noted none. [place], [place] REPORT OF CONSULTATION NAME: NICHOLE DISLA UNIT #: [id number] ROOM: [place] [address] DOCTOR: RIGO KILLIAN MD,TIARA BIRTHDATE: [birth year] SOCIAL HISTORY: The patient was living at home. There was no history of alcohol use or illicit drug use described. The tobacco history was noted for the use of the tobacco for this patient since teenager, a pack or more of more cigarettes per day. The patient has been exposed to the Agent [place] war in 1967 as well. FAMILY HISTORY: Noncontributory. MEDICATIONS: The current administered medication were noted as use of atorvastatin, lisinopril, vitamin D, aspirin, folic acid, vitamin C, Norvasc, Mucinex 1200 mg b.i.d., Lovenox for DVT prophylaxis, Solu-Medrol 60 mg q.8 hours, DuoNeb every 4 hours while awake, magnesium hydroxide p.r.n. for heartburn, Levaquin intravenously and other p.r.n. medications administration. The patient was also given one dose of Lasix 40 mg orally this morning as well. DRUG ALLERGIES: ALLERGY TO NOVOCAIN. PHYSICAL EXAMINATION: GENERAL: This is a 72-year-old male who has been currently noted to be awake and alert at this time without any acute respiratory distress. The patient's height recorded by the nursing staff 6 foot weight 179 pounds, BMI 24. VITAL SIGNS: Shows normal temperature, respiratory rate 15-24, heart rate of 80-92, blood pressure 128/79-118/72. Pulse oxygen saturation of the patient noted on 4 liters nasal cannula 88% to 82% on admission, currently with the BiPAP 50% oxygen 93% saturation. HEENT: Examination shows head was atraumatic. Eyes nonicterus. NECK: Supple. CARDIOVASCULAR: S1, S2 audible. LUNGS: Show severe decreased breath sounds bilaterally, diffuse expiratory wheezing. Crackles at the lung bases. ABDOMEN: Soft, nontender. EXTREMITIES: The patient was noted with dryness of the skin. No edema, clubbing or cyanosis. MUSCULOSKELETAL: Without any deformities. CENTRAL NERVOUS SYSTEM: Cranial nerves 2-12 intact. No focal deficit. LABORATORY DATA: Lactic acid this morning was 1.2. PT/PTT, which was done this morning was normal. CBC this morning; hemoglobin 10.8, hematocrit 38.0. WBC count normal, platelet count 107,000. CMP of the patient of 06/30/2017; glucose 108, BUN 31, creatinine was normal. CO2 58, chloride of 89. Albumin 3.0. PT, PTT was noted again this morning normal. CBC repeated again shows a normal, platelet count was 104,000. CMP repeated for this morning lab BUN 27, creatinine was normal. CO2 was 54. Potassium was noted as normal. LFTs for the patient mild reduction, total protein of 6.3 and albumin of 2.9. The AST, ALT, alkaline phosphatase were normal. Arterial blood gas that was done at midnight assessment in the Emergency Room showed pH of 7.30, pCO2 197, pO2 55. Arterial blood gas ordered for the patient as the patient started the BiPAP with setting of 16/10 for this patient with a 45% oxygen, pH of 7.39, pCO2 of 81.7, pO2 of 61.1. The chest x-ray, one view shows basilar areas of chronic scarring without any visible acute large pulmonary infiltration. [place], [place] REPORT OF CONSULTATION NAME: NICHOLE DISLA UNIT #: [id number] ROOM: [place] [address] DOCTOR: MICHAELLE FELIPE MDM BIRTHDATE: [birth year] IMPRESSION: 1. The patient who has been currently admitted to the hospital noted with severe acute exacerbation of chronic obstructive pulmonary disease with cwrcf-hz-[id number] severe hypercapnic hypoxic respiratory failure. 2. Severe metabolic alkalosis secondary to hypercarbia as well. 3. History of nicotine abuse as well. 4. Acute bronchitis, may be viral in origin, could be considered. 5. Overall debility of the patient secondary to current acute exacerbation. PLAN OF TREATMENT: The patient has been started on the Diamox at the present time at 250 mg 3 times a day that will be continued. Monitor potassium level and the bicarbonate for this patient with the use of the Diamox. The BiPAP to be continued most of the time except meals for the next 24 hours. Bronchodilators. Continue high dose of Solu-Medrol. No change in antibiotics will be necessary. Appropriate coverage will be given for any superimposed bacterial infection community-acquired infection. Usual care. DVT prophylaxis to be continued as previously ordered. Additional treatment changes will be continued to be recommended based on progression of his illness. Abstinence of tobacco use. Thanks for allowing me to participate in the care of this patient. TIARA SIERRA MD CM:CONSTR:REPORT OF CONSULTATION 1533 06/30/17 2124 interface
--- NOTE | ~2017-06-29 | PR ---
[place], [place] PROGRESS NOTE NAME: NICHOLE DISLA UNIT #: [id number] ROOM: 416 DOCTOR: LEANNA BURGESS DO BIRTHDATE: [birth year] DOS: 07/03/2017 SUBJECTIVE: The patient is seen and examined this morning, in no acute distress. The patient was sitting upright in chair at bedside. The patient reports that he feels like his breathing has improved back to baseline and he is ready for discharge. The patient reports that he does have some issues with transportation today, but agrees that if transportation is provided he will go home to continue his therapy as outpatient. No new complaints at this time. OBJECTIVE: VITAL SIGNS: Temperature 98.2, pulse is 85, respirations 18, blood pressure 119/65, pulse ox is 95% on 5 liters nasal cannula. LABORATORY DATA: CBC, BMP stable, no change from yesterday. Micro: Blood cultures remain negative. MRSA surveillance is negative. GENERAL APPEARANCE: Alert, awake and oriented x 3, in no acute distress. HEENT: Eyes are clear. No injection. Nares are patent. Mucous membranes are moist. NECK: Supple, nontender. CARDIAC: Regular rate and rhythm. No murmurs, gallops or rubs. PULMONARY: Mild expiratory wheezes. No rhonchi or rales. ABDOMEN: Soft, nontender, positive bowel sounds. EXTREMITIES: No edema, erythema, clubbing or cyanosis in the extremities.0 NEUROLOGIC: Negative for focal deficits. ASSESSMENT: 1. Acute severe hypercapnic and hypoxic respiratory failure. 2. Thrombocytopenia. 3. Hypoxia. 4. Tracheobronchitis. 5. Metabolic alkalosis, status resolved. 6. Protein calorie malnutrition and overall debility. PLAN OF CARE: The patient is stable from pulmonary standpoint for discharge, can continue Diamox, steroid taper, Levaquin and Mucinex as outpatient and can follow up with Dr. Sierra in a couple of weeks as outpatient. LEANNA DO ADITYA [place], [place] PROGRESS NOTE NAME: LEANNE DISLATUS UNIT #: [id number] ROOM: 416 DOCTOR: LEANNA BURGESS DO BIRTHDATE: [birth year] TIARA SIERRA MD CM:JULIO CÉSAR [id number] LEANNA BURGESS DO 07/04/17 0238 interface
[~2017-06-29 23:54] MED LIST changes: +LEVAQUIN750 M1 PO; +LIPITOR20 MG PO; +SYMB160 INH; +VITAMIN B-12500 MC3 SL
[2017-06-29 23:59] VITALS: BP 119/68
[2017-06-30] VITALS (9 sets, daily range): BP systolic 118–127; BP diastolic 62–82
[2017-06-30 00:20] LABS: HEMOGLOBIN 10.8 g/dl (14.0-18.0); MEAN CELL VOLUME 104.4 fl (80.0-94.0); MEAN CORPUSCULAR HGB 29.7 pg (27.0-31.0); MEAN CORPUSCULAR HGB CONC 28.4 g/dl (33.0-37.0); MEAN PLATELET VOLUME 9.8 fl (9.6-12.3); PLATELET COUNT AUTOMATED 107 10*3/uL (130-400); RED BLOOD COUNT 3.64 10*6/uL (4.50-5.90); RED CELL DISTRI WIDTH 12.9 % (0-14.5); WHITE BLOOD COUNT 7.5 10*3/uL (4.8-10.8)
[2017-06-30 00:30] LABS: ACT PARTIAL THROMBO TIME 25.3 SECONDS (20.8-31.5)
[2017-06-30 00:39] LABS: ALKALINE PHOSPHATASE 54 U/L (45-117); BUN 31 mg/dl (7-24); CHLORIDE 89 mmol/L (98-107); CREATININE 0.82 mg/dL (0.70-1.30); LIPASE 570 U/L (73-393); POTASSIUM 4.5 mmol/L (3.5-5.1); SGOT/AST 15 IU/L (3-35); SGPT/ALT 13 U/L (12-78); SODIUM 145 mmol/L (136-145); TOTAL PROTEIN 6.5 gm/dL (6.4-8.2)
[2017-06-30 00:41] LABS: ATYPICAL LYMPHS 1 % (0-0); PLATELET SUFFICIENCY LOW (NORMAL); TOTAL CELLS COUNTED 100 #CELLS
[2017-06-30 00:49] LABS: TROPONIN I < 0.015 ng/ml (<0.045)
[2017-06-30 00:58] LABS: ABG BASE EXCESS 22.1 mmol/L (-2.0-2.0); ABG HCO3 52.5 mmol/l (22-26); ABG O2 SATURATION 86.5 % (95-97); ARTERIAL BLOOD GAS PH 7.308 (7.35-7.45)
[2017-06-30] MEDS ORDERED: LIPITOR40 MG PO (03:00)
[2017-06-30] MEDS ORDERED: VITAMIN C1000 M5 PO (03:01)
[2017-06-30 05:55] LABS: HEMATOCRIT 36.6 % (42.0-52.0); HEMOGLOBIN 10.5 g/dl (14.0-18.0); MEAN CELL VOLUME 104.9 fl (80.0-94.0); MEAN CORPUSCULAR HGB 30.1 pg (27.0-31.0); MEAN CORPUSCULAR HGB CONC 28.7 g/dl (33.0-37.0); MEAN PLATELET VOLUME 9.7 fl (9.6-12.3); PLATELET COUNT AUTOMATED 104 10*3/uL (130-400); RED BLOOD COUNT 3.49 10*6/uL (4.50-5.90); RED CELL DISTRI WIDTH 12.9 % (0-14.5); WHITE BLOOD COUNT 4.9 10*3/uL (4.8-10.8)
[2017-06-30 06:06] LABS: ACT PARTIAL THROMBO TIME 25.2 SECONDS (20.8-31.5)
[2017-06-30 06:12] LABS: ALBUMIN 2.9 gm/dl (3.1-4.5); ALKALINE PHOSPHATASE 50 U/L (45-117); BUN 27 mg/dl (7-24); CHLORIDE 93 mmol/L (98-107); CHOLESTEROL 120 mg/dL (<200); CREATININE 0.69 mg/dL (0.70-1.30); HDL CHOLESTEROL 69 mg/dl (40-60); LDL CHOLESTEROL 34 mg/dL (9-159); PHOSPHOROUS 2.4 mg/dL (2.5-4.9); POTASSIUM 4.5 mmol/L (3.5-5.1); SGOT/AST 14 IU/L (3-35); SGPT/ALT 13 U/L (12-78); SODIUM 143 mmol/L (136-145); TOTAL PROTEIN 6.3 gm/dL (6.4-8.2); TRIGLYCERIDES 83 mg/dl (<150); VLDL CHOLESTEROL 17 mg/dL (6-40)
[2017-06-30 06:13] LABS: FREE T4 1.11 ng/dl (0.76-1.46)
[2017-06-30 06:17] LABS: THYROID STIM HORMONE (HS) 0.551 uIU/ml (0.358-4.75)
[2017-06-30 06:23] LABS: TROPONIN I < 0.015 ng/ml (<0.045)
[2017-06-30 06:28] LABS: TOTAL CELLS COUNTED 100 #CELLS
[2017-06-30 06:29] LABS: PLATELET SUFFICIENCY LOW (NORMAL); STOMATOCYTE FEW
[2017-06-30 07:39] LABS: VITAMIN D, 25-HYDROXY 46.2 ng/mL (30-100)
[2017-06-30 09:47] LABS: ABG BASE EXCESS 21.1 mmol/L (-2.0-2.0); ABG HCO3 50.4 mmol/l (22-26); ABG O2 SATURATION 91.9 % (95-97); ARTERIAL BLOOD GAS PH 7.357 (7.35-7.45)
[2017-06-30 09:51] LABS: ARTERIAL BLOOD GAS PCO2 91.8 mmHg (35-45)
[2017-06-30 13:30] LABS: ABG BASE EXCESS 20.9 mmol/L (-2.0-2.0); ABG HCO3 49.4 mmol/l (22-26); ABG O2 SATURATION 91.8 % (95-97); ARTERIAL BLOOD GAS PH 7.397 (7.35-7.45); ARTERIAL BLOOD GAS PO2 61.1 mmHg (80-90)
[2017-06-30 13:35] LABS: ARTERIAL BLOOD GAS PCO2 81.7 mmHg (35-45)
[2017-07-01] VITALS: BP 125/72
[2017-07-01 04:00] VITALS: BP 126/84
[2017-07-01 05:58] LABS: HEMATOCRIT 35.6 % (42.0-52.0); HEMOGLOBIN 10.2 g/dl (14.0-18.0); MEAN CORPUSCULAR HGB 29.1 pg (27.0-31.0); MEAN CORPUSCULAR HGB CONC 28.7 g/dl (33.0-37.0); MEAN PLATELET VOLUME 10.5 fl (9.6-12.3); PLATELET COUNT AUTOMATED 121 10*3/uL (130-400); RED BLOOD COUNT 3.51 10*6/uL (4.50-5.90); RED CELL DISTRI WIDTH 12.9 % (0-14.5); WHITE BLOOD COUNT 5.5 10*3/uL (4.8-10.8)
[2017-07-01 06:06] LABS: MEAN CELL VOLUME 101.4 fl (80.0-94.0)
[2017-07-01 06:15] LABS: CHLORIDE 95 mmol/L (98-107); POTASSIUM 4.2 mmol/L (3.5-5.1); SODIUM 142 mmol/L (136-145)
[2017-07-01 06:26] LABS: ALBUMIN 3.1 gm/dl (3.1-4.5); ALKALINE PHOSPHATASE 45 U/L (45-117); BUN 31 mg/dl (7-24); CREATININE 0.82 mg/dL (0.70-1.30); PHOSPHOROUS 3.1 mg/dL (2.5-4.9); SGOT/AST 16 IU/L (3-35); SGPT/ALT 13 U/L (12-78); TOTAL PROTEIN 6.7 gm/dL (6.4-8.2)
[2017-07-01 06:57] LABS: PLATELET SUFFICIENCY LOW (NORMAL); TOTAL CELLS COUNTED 100 #CELLS
[2017-07-01 07:49] VITALS: BP 125/82
[2017-07-01 12:00] VITALS: BP 140/94
[2017-07-01 16:00] VITALS: BP 129/77
[2017-07-01 16:32] LABS: ABG BASE EXCESS 11.8 mmol/L (-2.0-2.0); ABG HCO3 40.1 mmol/l (22-26); ARTERIAL BLOOD GAS PH 7.327 (7.35-7.45)
[2017-07-01 16:38] LABS: ARTERIAL BLOOD GAS PCO2 78.7 mmHg (35-45)
[2017-07-01 20:00] VITALS: BP 111/84
[2017-07-02] VITALS: BP 98/62
[2017-07-02 04:00] VITALS: BP 124/77
[2017-07-02 06:00] LABS: ALBUMIN 2.8 gm/dl (3.1-4.5); ALKALINE PHOSPHATASE 41 U/L (45-117); BUN 40 mg/dl (7-24); CHLORIDE 101 mmol/L (98-107); CREATININE 0.91 mg/dL (0.70-1.30); POTASSIUM 3.9 mmol/L (3.5-5.1); SGOT/AST 8 IU/L (3-35); SGPT/ALT 12 U/L (12-78); SODIUM 143 mmol/L (136-145)
[2017-07-02 06:02] LABS: HEMATOCRIT 33.9 % (42.0-52.0); HEMOGLOBIN 10.2 g/dl (14.0-18.0); LYMPH % 16.9 % (27.0-41.0); MEAN CORPUSCULAR HGB 30.1 pg (27.0-31.0); MEAN CORPUSCULAR HGB CONC 30.1 g/dl (33.0-37.0); MONO # 0.3 10*3/uL (0.1-1.0); MONO % 4.7 % (3.0-9.0); NEUT # 4.5 10*3/uL (2.3-7.9); NEUT % 78.1 % (47.0-73.0); PLATELET COUNT AUTOMATED 128 10*3/uL (130-400); PREALBUMIN 15 mg/dl (20-40); RED BLOOD COUNT 3.39 10*6/uL (4.50-5.90); RED CELL DISTRI WIDTH 12.9 % (0-14.5); WHITE BLOOD COUNT 5.7 10*3/uL (4.8-10.8)
[2017-07-02 07:57] VITALS: BP 107/65
[2017-07-02 12:00] VITALS: BP 108/75
[2017-07-02 16:00] VITALS: BP 124/69
[2017-07-02 20:00] VITALS: BP 116/67
[2017-07-03] VITALS: BP 120/65
[2017-07-03 07:05] LABS: HEMATOCRIT 34.9 % (42.0-52.0); HEMOGLOBIN 10.4 g/dl (14.0-18.0); LYMPH # 0.7 10*3/uL (1.3-4.4); MEAN CELL VOLUME 100.6 fl (80.0-94.0); MEAN CORPUSCULAR HGB CONC 29.8 g/dl (33.0-37.0); MEAN PLATELET VOLUME 10.4 fl (9.6-12.3); MONO # 0.3 10*3/uL (0.1-1.0); MONO % 5.3 % (3.0-9.0); NEUT # 4.8 10*3/uL (2.3-7.9); NEUT % 82.2 % (47.0-73.0); PLATELET COUNT AUTOMATED 139 10*3/uL (130-400); RED BLOOD COUNT 3.47 10*6/uL (4.50-5.90); RED CELL DISTRI WIDTH 12.8 % (0-14.5); WHITE BLOOD COUNT 5.8 10*3/uL (4.8-10.8)
[2017-07-03 07:26] LABS: ALBUMIN 2.8 gm/dl (3.1-4.5); ALKALINE PHOSPHATASE 39 U/L (45-117); BUN 39 mg/dl (7-24); CHLORIDE 101 mmol/L (98-107); POTASSIUM 3.7 mmol/L (3.5-5.1); SGOT/AST 7 IU/L (3-35); SGPT/ALT 11 U/L (12-78); SODIUM 143 mmol/L (136-145); TOTAL PROTEIN 5.9 gm/dL (6.4-8.2)
[2017-07-03 08:00] VITALS: BP 119/65
[2017-07-03 12:00] VITALS: BP 110/54
[2017-07-03] MEDS ORDERED: PHARMASSURE VI500 MG PO (13:47)
[2017-07-03] MEDS ORDERED: VITAMIN D-32000 UNIT PO (13:47)
[2017-07-03] MEDS ORDERED: ACETAZOLAMIDE250 MG PO (13:47)
[2017-07-03] MEDS ORDERED: LASIX40 MG PO (13:47)
[2017-07-03] MEDS ORDERED: PREDNISONE10 MG PO (13:51)
[2017-07-03] MEDS ORDERED: DOXYCYCLINE100 M3 PO (13:51)
[2017-07-03 16:00] VITALS: BP 146/78
== END 2017-07-03 16:36 | disposition other institution (70) | DRG 871 ==
LOC: ED 23:54 → 4E 06-30 01:29 → EDHOLD 06-30 01:29 → ICCU 06-30 01:29 → 4E 07-02 14:01
PROVIDERS: Emergency Medicine; Emergency Medicine Emergency Medical Services; Hospitalist; Internal Medicine; Internal Medicine Critical Care Medicine; Internal Medicine Hospice and Palliative Medicine
PROC: 5A09357 Assistance with Respiratory Ventilation, Less than 24 Consecutive Hours, Continuous Positive Airway Pressure (ICD-10-PCS; principal; 2017-06-30)
PROC: 5A09357 Assistance with Respiratory Ventilation, Less than 24 Consecutive Hours, Continuous Positive Airway Pressure (ICD-10-PCS; 2017-07-01)
PROC: 5A09357 Assistance with Respiratory Ventilation, Less than 24 Consecutive Hours, Continuous Positive Airway Pressure (ICD-10-PCS; 2017-07-03)
DX: A41.9 Sepsis, unspecified organism (principal); G93.41 Metabolic encephalopathy; J96.21 Acute and chronic respiratory failure with hypoxia; E44.0 Moderate protein-calorie malnutrition; E87.3 Alkalosis; J18.9 Pneumonia, unspecified organism; D69.6 Thrombocytopenia, unspecified; E11.22 Type 2 diabetes mellitus with diabetic chronic kidney disease; J96.22 Acute and chronic respiratory failure with hypercapnia; J44.0 Chronic obstructive pulmonary disease with (acute) lower respiratory infection; J44.1 Chronic obstructive pulmonary disease with (acute) exacerbation; I13.0 Hypertensive heart and chronic kidney disease with heart failure and stage 1 through stage 4 chronic kidney disease, or unspecified chronic kidney disease; I50.32 Chronic diastolic (congestive) heart failure; E67.8 Other specified hyperalimentation; R65.20 Severe sepsis without septic shock; E83.39 Other disorders of phosphorus metabolism; E87.8 Other disorders of electrolyte and fluid balance, not elsewhere classified; E83.41 Hypermagnesemia; D53.9 Nutritional anemia, unspecified; E78.5 Hyperlipidemia, unspecified; N18.9 Chronic kidney disease, unspecified; D72.810 Lymphocytopenia; I71.4 Abdominal aortic aneurysm, without rupture; E78.00 Pure hypercholesterolemia, unspecified; J20.9 Acute bronchitis, unspecified; Z78.9 Other specified health status; Z71.6 Tobacco abuse counseling; Z79.82 Long term (current) use of aspirin; Z79.899 Other long term (current) drug therapy; Z88.8 Allergy status to other drugs, medicaments and biological substances; Z83.6 Family history of other diseases of the respiratory system; Z80.9 Family history of malignant neoplasm, unspecified; Z83.1 Family history of other infectious and parasitic diseases; Z87.891 Personal history of nicotine dependence; Z99.81 Dependence on supplemental oxygen; Z86.11 Personal history of tuberculosis; Z68.24 Body mass index [BMI] 24.0-24.9, adult

== ENCOUNTER 2017-11-04 13:11 | Inpatient (IN) | payer OTHER, MEDICARE ==
[~2017-11-04] VITALS: Ht 182.9 cm; Wt 82.7 kg
--- NOTE | ~2017-11-04 | PR ---
[place], [place] PROGRESS NOTE NAME: NICHOLE DISLA UNIT #: [id number] ROOM: 523 DOCTOR: TIARA FELIPE MD BIRTHDATE: [birth year] DOS: 11/06/2017 SUBJECTIVE: The patient was noted comfortable at this time without any acute distress, has not been noted with any acute distress at this time. BiPAP has been used for the patient noted restless at times. He has been noted agitated and continued to have confusional status. He has not been reported any symptoms of abdominal pain. The review of systems could not be obtained for this patient since the patient is currently noted changes in mental status remains persistent. OBJECTIVE: VITAL SIGNS: Normal temperature, respiratory rate 16-20, heart rate of 84, blood pressure 134/102-167/82. The pulse oxygen saturation for the patient on 6-liter nasal cannula earlier was 88% with 40% BiPAP with 100% saturation with 40% oxygen supplementation. HEENT: Head was atraumatic. Eyes nonicterus. NECK: Supple. CARDIOVASCULAR: S1, S2 is audible. LUNGS: The patient was noted with generalized decreased breath sounds in the lung still noted bilaterally. ABDOMEN: Soft, nontender. Bowel sounds present. EXTREMITIES: Without any acute edema. IMPRESSION: The patient who has been noted currently ongoing exacerbation of chronic obstructive pulmonary disease, resolving hypercapnia. Change in mental status of the patient's confusion, psychiatric illness of the patient could be considered. The current hypercarbia has been already corrected with the BiPAP, would not be causing persistent changes in mental status. Other assessment of the patient's change in mental status could be considered such as hypoalbuminemia and other different reasons as well. PLAN OF TREATMENT: Other supportive plan of therapy at this time to be continued, changes in steroids, bronchodilators and the pulmonary management. Psychiatric consultation should be obtained. [place], [place] PROGRESS NOTE NAME: NICHOLE DISLA UNIT #: [id number] ROOM: 523 DOCTOR: TIARA FELIPE MD BIRTHDATE: [birth year] TIARA SIERRA MD CM:PNTRANS [id number] TIARA KILLIAN MD 11/07/17 0233 interface
--- NOTE | ~2017-11-04 | CON ---
[place], [place] REPORT OF CONSULTATION NAME: NICHOLE DISLA UNIT #: [id number] ROOM: 523 DOCTOR: TIARA FELIPE MD BIRTHDATE: [birth year] DOS: 11/05/2017 PULMONARY CONSULTATION, EVALUATION, AND MANAGEMENT REASON FOR CONSULTATION: Assess the patient's current acute respiratory failure for the patient's change in mental status and others. HISTORY OF PRESENT ILLNESS: A 72-year-old white male with history of COPD. The patient presented to the hospital Emergency Room. The patient was noted with progressive change in mental, stated by the . He has been noting increased confusional status. The patient had arterial blood gases done in the Emergency, noted severe acute hypercarbia with a decreased pH. The patient has been started on BiPAP from yesterday and that has been used by the patient until this morning. He pulled off the BiPAP because of confusion and some agitation. This morning as the patient was seen, he has been noted with confusional status. The oxygen supplementation was used. The patient on 5 liters nasal cannula. The arterial blood gases were done already. He has been noted with some chest congestion. There were no symptoms of hemoptysis or chest pain reported. REVIEW OF SYSTEMS: Could not be completed since the patient was noted with change in mental status, unable to communicate verbally to give any history. PAST MEDICAL HISTORY: 1. ____ past assessment were noted as COPD, which were noted end-stage. 2. Essential hypertension. 3. Vitamin D deficiency. 4. Treated pulmonary tuberculosis in 1989. PAST SURGICAL HISTORY: Noted as no major surgeries. SOCIAL HISTORY: The patient is and lives at home. He does have a history of alcohol use, illicit drug use. Tobacco use was noted as a teenager. A pack or more of cigarettes per day. There was a history of exposure to Agent [place] in [place] War in 1967. FAMILY HISTORY: Unknown. CURRENT MEDICATIONS: Administered, noted use of IV Solu-Medrol 60 mg b.i.d., Lovenox 40 mg daily, Lasix 40 mg IV b.i.d., DuoNeb q.4h., lorazepam p.r.n. use, temazepam p.r.n. use. DRUG ALLERGIES: ALLERGY TO [place]OV[place]AIN. PHYSICAL EXAMINATION: GENERAL: This is a 72-year-old male patient who has been noted currently awake and alert, but confused. Height of 6 feet, weight of 182 pounds with BMI of 24.7. VITAL SIGNS: Normal temperature since admission, respiratory rate is 16-18, heart rate of 82-64, blood pressure 128/60-124/71, pulse oxygen saturation for the patient on 4 L nasal cannula was 96% saturation with 45%, rate of 93% with [place], [place] REPORT OF CONSULTATION NAME: NICHOLE DISLA UNIT #: [id number] ROOM: 523 DOCTOR: TIARA FELIPE MD BIRTHDATE: [birth year] BiPAP use and this morning on 5 liters has 95% saturation. HEENT: Head is atraumatic. Eyes, nonicterus. NECK: Supple. CARDIOVASCULAR: S1, S2 audible. LUNGS: Noted decreased breath sounds, generalized with expiratory wheezing, no crackles. ABDOMEN: Soft, nontender. Bowel sounds present. EXTREMITIES: The patient noted without any acute edema, clubbing, cyanosis. MUSCULOSKELETAL: Noted without any acute deformities. SKIN: Visible skin noted scattered bruising of the skin. CENTRAL NERVOUS SYSTEM: Confusional status, but there were no focal deficits. The patient was flailing his upper and lower extremity at his own will. LABORATORY DATA: CBC yesterday on admission, WBC count normal, hemoglobin 11.4, hematocrit normal, platelet count 104,000, mildly decreased. CMP of the patient that was done on 11/04/2017, normal BUN and creatinine. CO2 57. The arterial blood gas, pH of 7.13, pCO2 168, pO2 of 89, first one. Second arterial blood gas on 45% oxygen, pH of 7.30, pCO2 of 109, pO2 of 56 with BiPAP settings of 18/10. Arterial blood gas this morning, pH of 7.39, pCO2 87, pO2 of 48. CBC this morning, hemoglobin 10.7, platelet count was 98,000, WBC count normal. PT/PTT normal. BMP this morning, BUN and creatinine were normal. Chloride of 89, CO2 of 58. Chest x-ray that was done one view showed changes of COPD, hyperinflation with basilar area of atelectasis. IMPRESSION: 1. The patient currently noted with an ongoing acute exacerbation of chronic obstructive pulmonary disease. 2. Change in mental status, severe acute hypercarbia was noted with severe metabolic alkalosis. 3. Past history of nicotine use as well. There was no evidence of acute pneumonia, some basilar areas of atelectasis was noted. PLAN OF MANAGEMENT: The patient has been currently treated with BiPAP. He was tolerating the BiPAP. The patient is very well at this time. The BiPAP could be used for this patient in the current same setting as tolerated. Avoid using the medication such as Ativan for this patient to prevent any further worsening of the psychosis. He will be started on the Diamox 500 mg p.o. t.i.d., total of 9 doses. Repeat BMP for the patient would be done to see hyperkalemia could result with use of the Diamox. Monitoring of the mental status of the patient closely with current code status. In case of worsening of the hypercarbia or change in mental status, the patient may need to be transferred to the Intensive Care Unit. Other supportive therapy, plan of management, care plan. Usual treatment. Additional treatment changes to be made for this patient based on the progression of the illness. Thanks for allowing me to participate in the care of this patient. [place], [place] REPORT OF CONSULTATION NAME: NICHOLE DISLA UNIT #: [id number] ROOM: 523 DOCTOR: TIARA FELIPE MD BIRTHDATE: [birth year] TIARA SIERRA MD CM:CONSTR:REPORT OF CONSULTATION 1531 11/06/17 0453 interface
--- NOTE | ~2017-11-04 | EKG ---
[place], [place] ELECTROCARDIOGRAM REPORT NAME: NICHOLE DISLA UNIT #: [id number] ROOM: 523 DOCTOR: RIGO KILLIAN MD,TIARA BIRTHDATE: [birth year] DOS: 11/04/2017 TIME DONE: 1352 hours. Shows normal sinus rhythm at 79 beats per minute. PVC was noted an electrocardiogram. There were no other abnormalities noted. TIARA SIERRA MD CM:EKGRPT:ELECTROCARDIOGRAM REPORT 1642 1821 TIARA KILLIAN MD
--- NOTE | ~2017-11-04 | CON ---
[place], [place] REPORT OF CONSULTATION NAME: NICHOLE DISLA UNIT #: [id number] ROOM: 523 DOCTOR: DARIELA TIPTON MD BIRTHDATE: [birth year] DOS: 11/07/2017 PSYCHIATRIC CONSULT CHIEF COMPLAINT: "I am doing a lot better now, thank you Sir." SUMMARY OF THE VISIT/HISTORY OF PRESENT ILLNESS: This is a 72-year-old white male who was admitted to [facility] medical unit due to COPD, diastolic congestive heart failure, and altered mental status. The patient was brought in to the Emergency Room by his because he was not acting himself. During that period of time, they found him to be very confused and he could not process and was also attempting to answer questions that were not asked of him. Staff here have noticed that he remains significantly confused and disjointed in his thinking and are concerned that there is more here than just a metabolic encephalopathy. PAST MEDICAL HISTORY: Significant for abdominal aortic aneurysm, COPD, diabetes, hyperlipidemia, hypertension, hypoxemia, metabolic alkalosis, pneumonitis, protein-calorie malnutrition, severe sepsis, tobacco abuse, vitamin D deficiency. HABITS: The patient apparently is a smoker, but denies alcohol consumption. MENTAL STATUS EXAMINATION: He is alert and oriented to person, very approximate to time and oriented to place. He gave very vague answers to questions asked of him and at times gave inappropriate responses. He does though endorsed poor sleep with difficulty falling asleep, sleep continuity disturbance and early interventionist awakening, as well as poor appetite. In addition to his vague responses, there are significant gaps in short term memory and he processes slowly. DIAGNOSIS: Major depression, recurrent; rule out dementia; rule out alcohol abuse. PLAN: I will go ahead and start him on Remeron 15 mg at bedtime to aid sleep and improve appetite. I am also checking a serum ammonia level as well as a CMP specifically to look at LFTs. We will monitor with you. Should you feel that he is clearing medically and still remains confused, I would then admit to the U. [place], [place] REPORT OF CONSULTATION NAME: NICHOLE DISLA UNIT #: [id number] ROOM: 523 DOCTOR: DARIELA TIPTON MD BIRTHDATE: [birth year] DARIELA TIPTON MD CM:CONSTR:REPORT OF CONSULTATION 5 11/07/17 1239 interface
--- NOTE | ~2017-11-04 | PR ---
[place], [place] PROGRESS NOTE NAME: NICHOLE DISLA UNIT #: [id number] ROOM: 523 DOCTOR: TIARA FELIPE MD BIRTHDATE: [birth year] DOS: 11/08/2017 PULMONARY PROGRESS NOTE SUBJECTIVE: The patient was seen and examined today, noted on the restraining chair. He has been noted cooperative on examination without agitation, eating his ____. He has not been noted any symptoms of chest pain. He has been noted intermittent confusion and visual hallucinations. PHYSICAL EXAMINATION: VITAL SIGNS: Show normal temperature, respiratory rate 20, heart rate 82, and blood pressure of 109/67. The pulse oxygen saturation on 5 liters nasal cannula is 100% saturation. HEENT: On examination, no acute change. CARDIOVASCULAR: S1, S2 audible. LUNGS: Without any wheeze or crackles. Breaths are noted tuya-dn-fkurnyjnhp decreased. ABDOMEN: Soft, nontender. EXTREMITIES: Without any acute edema. LABORATORY DATA: Arterial blood gas, pH of 7.36, pCO2 of 61, and pO2 of 73 on 5 liters nasal cannula. BMP of the patient, BUN 42, creatinine normal, and potassium 3.2. The CO2 was noted on today's lab at 39. IMPRESSION: 1. The patient with marked resolution and improvement in the metabolic alkalosis. 2. The patient with hypokalemia, result of the Diamox, which is completed today. Total of 9 doses. 3. The patient has mental status changes, hallucinations, and psychiatric problem with marked improvement noted. 4. Acute exacerbation of chronic obstructive pulmonary disease with acute tracheobronchitis. PLAN OF TREATMENT: The patient will be transferred to Behavioral Unit for further medical management and will be recommended about use of the BiPAP at nighttime p.r.n. during the day, reduction, discontinuation, and tapering of prednisone was also recommended. Other supportive therapy, plan of management, and care. [place], [place] PROGRESS NOTE NAME: NICHOLE DISLA UNIT #: [id number] ROOM: 523 DOCTOR: TIARA FELIPE MD BIRTHDATE: [birth year] TIARA SIERRA MD CM:PNTRANS [id number] TIARA KILLIAN MD 11/09/17 0037 interface
--- NOTE | ~2017-11-04 | PR ---
[place], [place] PROGRESS NOTE NAME: NICHOLE DISLA UNIT #: [id number] ROOM: 523 DOCTOR: TIARA FELIPE MD BIRTHDATE: [birth year] DOS: 11/07/2017 PULMONARY FOLLOWUP SUBJECTIVE: The patient was noted comfortable at this time, resting on the bed without any acute distress. He has been noted improvement in the orientation and confusional status this morning. He had not been noted symptoms of abdominal pain or chest pain. OBJECTIVE: VITAL SIGNS: Normal temperature, respiratory rate 20, heart rate 85, blood pressure 110/68 and 120/74, pulse ox saturation on 5 liters 94% saturation. HEENT: Head was atraumatic. Eyes nonicterus. CARDIOVASCULAR: S1, S2 is audible. LUNGS: The patient was noted with moderate decreased breath sounds, scattered expiratory wheezing, no crackles. ABDOMEN: Soft, nontender. EXTREMITIES: Without any acute edema. LABORATORY DATA: The patient's CBC: WBC count normal, hemoglobin 11.3, platelet count were normal. BMP of the patient this morning, BUN 36, creatinine normal, glucose 203. The CO2 was decreased to 40, chloride of 89. Arterial blood gas pH of 7.43, pCO2 59-62. IMPRESSION: 1. The patient has been noted with resolving metabolic alkalosis and hypokalemia secondary to Diamox. The patient was also noted. 2. Improvement in the mental status, resolving acute on chronic, severe hypercapnic and hypoxic respiratory failure. PLAN OF TREATMENT: Supplementation of potassium. Continuation of bronchodilators, oxygen supplementation and other plan of care. Usual care. Ordered the supportive plan of treatment and therapies. [place], [place] PROGRESS NOTE NAME: NICHOLE DISLA UNIT #: [id number] ROOM: 523 DOCTOR: TIARA FELIPE MD BIRTHDATE: [birth year] TIARA SIERRA MD CM:PNTRANS [phone] TIARA KILLIAN MD 11/07/17 1435 interface
[~2017-11-04 13:11] MED LIST changes: +DOXYCYCLINE100 M3 PO; +LIPITOR40 MG PO; +PHARMASSURE VI500 MG PO; +VITAMIN C1000 M5 PO; +VITAMIN D-32000 UNIT PO
[2017-11-04 13:17] VITALS: BP 124/68
[2017-11-04 13:38] LABS: HEMATOCRIT 43.8 % (42.0-52.0); HEMOGLOBIN 11.4 g/dl (14.0-18.0); MEAN CELL VOLUME 111.7 fl (80.0-94.0); MEAN CORPUSCULAR HGB 29.1 pg (27.0-31.0); MEAN PLATELET VOLUME 9.6 fl (9.6-12.3); PLATELET COUNT AUTOMATED 104 10*3/uL (130-400); RED BLOOD COUNT 3.92 10*6/uL (4.50-5.90); RED CELL DISTRI WIDTH 13.1 % (0-14.5)
[2017-11-04 13:54] LABS: ALBUMIN 3.4 gm/dl (3.1-4.5); ALKALINE PHOSPHATASE 57 U/L (45-117); BUN 13 mg/dl (7-24); CHLORIDE 93 mmol/L (98-107); CREATININE 0.64 mg/dL (0.70-1.30); POTASSIUM 4.8 mmol/L (3.5-5.1); SGOT/AST 12 IU/L (3-35); SODIUM 144 mmol/L (136-145); TOTAL PROTEIN 6.7 gm/dL (6.4-8.2)
[2017-11-04 13:55] LABS: SGPT/ALT 12 U/L (12-78)
[2017-11-04 13:57] LABS: TROPONIN I < 0.015 ng/ml (<0.045)
[2017-11-04 14:05] LABS: PLATELET SUFFICIENCY LOW (NORMAL); TOTAL CELLS COUNTED 100 #CELLS
[2017-11-04 14:06] LABS: POLYCHROMASIA SLIGHT
[2017-11-04 14:29] LABS: BILIRUBIN NEGATIVE (NEGATIVE); BLOOD NEGATIVE (NEGATIVE); CLARITY CLEAR (CLEAR); COLOR YELLOW (YELLOW); GLUCOSE NEGATIVE (NEGATIVE); KETONE NEGATIVE (NEGATIVE); LEUKO ESTERASE NEGATIVE (NEGATIVE); NITRITE NEGATIVE (NEGATIVE); PH 5.5 (5.0-9.0); SPECIFIC GRAVITY >= 1.030 (1.005-1.030); UROBILINOGEN 0.2 E.U./dl (0.2-1.0)
[2017-11-04 14:36] LABS: RBC 0-2 rbc/hpf (0-2)
[2017-11-04 14:37] LABS: BACTERIA 2+; HYALINE CAST TNTC
[2017-11-04 15:08] VITALS: BP 130/69
[2017-11-04 16:00] VITALS: BP 128/70
[2017-11-04 16:09] LABS: ABG BASE EXCESS 19.5 mmol/L (-2.0-2.0); ABG O2 SATURATION 96.8 % (95-97); ARTERIAL BLOOD GAS PO2 89.9 mmHg (80-90)
[2017-11-04 16:21] LABS: ARTERIAL BLOOD GAS PH 7.134 (7.35-7.45)
[2017-11-04 16:30] VITALS: BP 128/60
[2017-11-04 20:00] VITALS: BP 125/68; BP 146/68
[2017-11-04 20:15] LABS: ABG BASE EXCESS 21.6 mmol/L (-2.0-2.0); ABG HCO3 52.6 mmol/l (22-26); ABG O2 SATURATION 91.2 % (95-97); ARTERIAL BLOOD GAS PH 7.301 (7.35-7.45)
[2017-11-05] VITALS: BP 124/71
[2017-11-05 08:00] VITALS: BP 138/70
[2017-11-05 08:01] LABS: ABG BASE EXCESS 23.1 mmol/L (-2.0-2.0); ABG HCO3 52.4 mmol/l (22-26); ABG O2 SATURATION 87.3 % (95-97); ARTERIAL BLOOD GAS PH 7.391 (7.35-7.45)
[2017-11-05 08:08] LABS: ARTERIAL BLOOD GAS PCO2 87.9 mmHg (35-45)
[2017-11-05 09:15] LABS: BASO % 0.2 % (0.0-1.0); HEMATOCRIT 38.4 % (42.0-52.0); HEMOGLOBIN 10.7 g/dl (14.0-18.0); LYMPH # 0.9 10*3/uL (1.3-4.4); LYMPH % 18.6 % (27.0-41.0); MEAN CORPUSCULAR HGB 29.3 pg (27.0-31.0); MEAN CORPUSCULAR HGB CONC 27.9 g/dl (33.0-37.0); MEAN PLATELET VOLUME 9.3 fl (9.6-12.3); MONO # 0.4 10*3/uL (0.1-1.0); MONO % 8.6 % (3.0-9.0); NEUT # 3.4 10*3/uL (2.3-7.9); PLATELET COUNT AUTOMATED 98 10*3/uL (130-400); RED BLOOD COUNT 3.65 10*6/uL (4.50-5.90); RED CELL DISTRI WIDTH 12.9 % (0-14.5); WHITE BLOOD COUNT 4.8 10*3/uL (4.8-10.8)
[2017-11-05 09:16] LABS: MEAN CELL VOLUME 105.2 fl (80.0-94.0)
[2017-11-05 09:48] LABS: ACT PARTIAL THROMBO TIME 24.6 SECONDS (20.8-31.5)
[2017-11-05 09:51] LABS: BUN 21 mg/dl (7-24); CHLORIDE 89 mmol/L (98-107); CHOLESTEROL 143 mg/dL (<200); CREATININE 0.69 mg/dL (0.70-1.30); HDL CHOLESTEROL 73 mg/dl (40-60); LDL CHOLESTEROL 57 mg/dL (9-159); PHOSPHOROUS 2.1 mg/dL (2.5-4.9); POTASSIUM 4.4 mmol/L (3.5-5.1); SODIUM 144 mmol/L (136-145); TRIGLYCERIDES 63 mg/dl (<150); VLDL CHOLESTEROL 13 mg/dL (6-40)
[2017-11-05 09:57] LABS: THYROID STIM HORMONE (HS) 0.281 uIU/ml (0.358-4.75)
[2017-11-05] MEDS ORDERED: CLARITIN10 MG PO (11:49)
[2017-11-05] MEDS ORDERED: LIPITOR80 MG PO (11:50)
[2017-11-05] MEDS ORDERED: B-121000 MCG PO (11:52)
[2017-11-05 11:54] LABS: VITAMIN D, 25-HYDROXY 47.7 ng/mL (30-100)
[2017-11-05] MEDS ORDERED: GUAIFENESI100 MG/52 PO (11:55)
[2017-11-05] MEDS ORDERED: EC NAPROSYN500 MG PO (11:57)
[2017-11-05] MEDS ORDERED: VITAMIN D31000 UNI1 PO (11:59)
[2017-11-05 12:00] VITALS: BP 115/51
[2017-11-05 16:00] VITALS: BP 139/74
[2017-11-05 20:00] VITALS: BP 126/67
[2017-11-06] VITALS: BP 167/82
[2017-11-06 06:48] LABS: HEMATOCRIT 41.7 % (42.0-52.0); HEMOGLOBIN 11.7 g/dl (14.0-18.0); LYMPH # 0.7 10*3/uL (1.3-4.4); LYMPH % 12.1 % (27.0-41.0); MEAN CELL VOLUME 102.2 fl (80.0-94.0); MEAN CORPUSCULAR HGB 28.7 pg (27.0-31.0); MEAN CORPUSCULAR HGB CONC 28.1 g/dl (33.0-37.0); MEAN PLATELET VOLUME 10.1 fl (9.6-12.3); MONO # 0.1 10*3/uL (0.1-1.0); MONO % 1.4 % (3.0-9.0); NEUT # 4.9 10*3/uL (2.3-7.9); NEUT % 86.1 % (47.0-73.0); PLATELET COUNT AUTOMATED 116 10*3/uL (130-400); RED BLOOD COUNT 4.08 10*6/uL (4.50-5.90); RED CELL DISTRI WIDTH 13.3 % (0-14.5); WHITE BLOOD COUNT 5.7 10*3/uL (4.8-10.8)
[2017-11-06 07:00] LABS: BUN 30 mg/dl (7-24); CHLORIDE 90 mmol/L (98-107); CREATININE 0.98 mg/dL (0.70-1.30); POTASSIUM 4.9 mmol/L (3.5-5.1); SODIUM 142 mmol/L (136-145)
[2017-11-06 08:00] VITALS: BP 134/102
[2017-11-06 12:00] VITALS: BP 143/87
[2017-11-06 16:00] VITALS: BP 129/78
[2017-11-06 20:00] VITALS: BP 115/69
[2017-11-07] VITALS: BP 120/74
[2017-11-07 07:14] LABS: HEMOGLOBIN 11.3 g/dl (14.0-18.0); MEAN CORPUSCULAR HGB 28.4 pg (27.0-31.0); MEAN PLATELET VOLUME 10.6 fl (9.6-12.3); PLATELET COUNT AUTOMATED 132 10*3/uL (130-400); RED BLOOD COUNT 3.98 10*6/uL (4.50-5.90); RED CELL DISTRI WIDTH 13.5 % (0-14.5)
[2017-11-07 07:18] LABS: ABG BASE EXCESS 12.8 mmol/L (-2.0-2.0); ABG HCO3 39.2 mmol/l (22-26); ABG O2 SATURATION 92.7 % (95-97); ARTERIAL BLOOD GAS PCO2 59.7 mmHg (35-45); ARTERIAL BLOOD GAS PH 7.432 (7.35-7.45); ARTERIAL BLOOD GAS PO2 62.4 mmHg (80-90)
[2017-11-07 07:25] LABS: BUN 36 mg/dl (7-24); CHLORIDE 89 mmol/L (98-107); CREATININE 0.96 mg/dL (0.70-1.30); SODIUM 138 mmol/L (136-145)
[2017-11-07 07:27] LABS: POTASSIUM 3.2 mmol/L (3.5-5.1)
[2017-11-07 07:49] LABS: PLATELET SUFFICIENCY NORMAL (NORMAL); TOTAL CELLS COUNTED 100 #CELLS
[2017-11-07 08:00] VITALS: BP 110/68
[2017-11-07 11:32] LABS: ALBUMIN 3.8 gm/dl (3.1-4.5); ALKALINE PHOSPHATASE 49 U/L (45-117); BUN 37 mg/dl (7-24); CHLORIDE 93 mmol/L (98-107); CREATININE 1.15 mg/dL (0.70-1.30); POTASSIUM 3.3 mmol/L (3.5-5.1); SGOT/AST 13 IU/L (3-35); SGPT/ALT 14 U/L (12-78); SODIUM 141 mmol/L (136-145)
[2017-11-07 12:00] VITALS: BP 140/93
[2017-11-07 16:00] VITALS: BP 117/68
[2017-11-07 16:28] LABS: ABG BASE EXCESS 9.7 mmol/L (-2.0-2.0); ABG HCO3 35.9 mmol/l (22-26); ABG O2 SATURATION 93.3 % (95-97); ARTERIAL BLOOD GAS PCO2 58.8 mmHg (35-45); ARTERIAL BLOOD GAS PH 7.403 (7.35-7.45); ARTERIAL BLOOD GAS PO2 70.8 mmHg (80-90)
[2017-11-07 20:00] VITALS: BP 109/62
[2017-11-08] VITALS: BP 106/50
[2017-11-08 06:41] LABS: HEMATOCRIT 41.5 % (42.0-52.0); HEMOGLOBIN 12.1 g/dl (14.0-18.0); LYMPH # 0.5 10*3/uL (1.3-4.4); LYMPH % 7.4 % (27.0-41.0); MEAN CORPUSCULAR HGB 28.9 pg (27.0-31.0); MEAN CORPUSCULAR HGB CONC 29.2 g/dl (33.0-37.0); MEAN PLATELET VOLUME 10.7 fl (9.6-12.3); MONO # 0.3 10*3/uL (0.1-1.0); NEUT # 6.2 10*3/uL (2.3-7.9); NEUT % 88.2 % (47.0-73.0); PLATELET COUNT AUTOMATED 143 10*3/uL (130-400); RED BLOOD COUNT 4.19 10*6/uL (4.50-5.90); RED CELL DISTRI WIDTH 13.8 % (0-14.5)
[2017-11-08 07:27] LABS: BUN 42 mg/dl (7-24); CHLORIDE 94 mmol/L (98-107); POTASSIUM 3.2 mmol/L (3.5-5.1); SODIUM 140 mmol/L (136-145)
[2017-11-08 08:00] VITALS: BP 109/67
[2017-11-08 12:00] VITALS: BP 107/62
[2017-11-08 13:11] LABS: ABG BASE EXCESS 7.8 mmol/L (-2.0-2.0); ABG HCO3 34.7 mmol/l (22-26); ABG O2 SATURATION 94.3 % (95-97); ARTERIAL BLOOD GAS PCO2 61.7 mmHg (35-45); ARTERIAL BLOOD GAS PH 7.365 (7.35-7.45); ARTERIAL BLOOD GAS PO2 73.6 mmHg (80-90)
[2017-11-08] MEDS ORDERED: PREDNISONE10 MG PO (14:34)
[2017-11-08] MEDS ORDERED: LISINOPRIL30 MG PO (14:34)
[2017-11-08 16:00] VITALS: BP 94/56
== END 2017-11-08 16:11 | disposition other institution (70) | DRG 291 ==
LOC: ED 13:11 → EDHOLD 15:27 → 5E 15:27
PROVIDERS: Emergency Medicine; Internal Medicine; Internal Medicine Critical Care Medicine; Psychiatry & Neurology Psychiatry
PROC: 5A09357 Assistance with Respiratory Ventilation, Less than 24 Consecutive Hours, Continuous Positive Airway Pressure (ICD-10-PCS; principal; 2017-11-04)
PROC: 5A09357 Assistance with Respiratory Ventilation, Less than 24 Consecutive Hours, Continuous Positive Airway Pressure (ICD-10-PCS; 2017-11-06)
PROC: 5A09357 Assistance with Respiratory Ventilation, Less than 24 Consecutive Hours, Continuous Positive Airway Pressure (ICD-10-PCS; 2017-11-07)
DX: I11.0 Hypertensive heart disease with heart failure (principal); J96.21 Acute and chronic respiratory failure with hypoxia; E87.3 Alkalosis; G93.41 Metabolic encephalopathy; E87.8 Other disorders of electrolyte and fluid balance, not elsewhere classified; D69.6 Thrombocytopenia, unspecified; F33.9 Major depressive disorder, recurrent, unspecified; E11.65 Type 2 diabetes mellitus with hyperglycemia; J96.22 Acute and chronic respiratory failure with hypercapnia; J44.0 Chronic obstructive pulmonary disease with (acute) lower respiratory infection; J44.1 Chronic obstructive pulmonary disease with (acute) exacerbation; F23 Brief psychotic disorder; I50.33 Acute on chronic diastolic (congestive) heart failure; R82.71 Bacteriuria; D53.9 Nutritional anemia, unspecified; E87.6 Hypokalemia; J20.9 Acute bronchitis, unspecified; E11.9 Type 2 diabetes mellitus without complications; E78.5 Hyperlipidemia, unspecified; Z87.01 Personal history of pneumonia (recurrent); Z83.1 Family history of other infectious and parasitic diseases; Z99.81 Dependence on supplemental oxygen; Z88.8 Allergy status to other drugs, medicaments and biological substances; Z79.82 Long term (current) use of aspirin; Z79.899 Other long term (current) drug therapy

== ENCOUNTER 2017-11-08 15:39 | Inpatient (IN) | payer MEDICARE, OTHER ==
[~2017-11-08] VITALS: Ht 182.8 cm; Wt 78.5 kg
--- NOTE | ~2017-11-08 | PR ---
[place], [place] PROGRESS NOTE NAME: NICHOLE DISLA UNIT #: [id number] ROOM: 317 DOCTOR: LISAMARIBEL SHULTZWANDA BIRTHDATE: [birth year] DOS: 11/15/2017 PSYCHIATRIC PROGRESS NOTE CHIEF COMPLAINT: "I'm doing well." SUMMARY OF VISIT: This is a 72-year-old white male who was interviewed this morning in the dining room. He was sitting in a chair, wearing his oxygen. Per nursing staff, patient actually was able to sleep all night long, which is a new thing for him. Patient states actually that this is the longest he has slept in one night since he was in [place]. Patient says that trazodone is helping him a lot. Patient did not voice any other concerns at this time. He was readily engaging in conversation. He did not appear anxious. MENTAL STATUS EXAMINATION: Patient is alert and oriented to person, place, time. His mood is more euthymic. His affect is appropriate. Patient is cooperative with exam. PLAN: 1. We have increased his Exelon patch to 13.3. 2. Patient's disposition will most likely happen when he is stable and discharge will be pending on medical and psychiatric status at that time. ADDENDUM Dr. Tipton 12/05/17 10:48 am: Above note reviewed. Agree with observations, recommendations, and overall treatment plan. Wanda Rucker DO [place], [place] PROGRESS NOTE NAME: NICHOLE DISLA UNIT #: [id number] ROOM: 317 DOCTOR: WANDA RUCKER DO BIRTHDATE: [birth year] DARIELA TIPTON MD CM:PNTRANS [phone] WANDA RUCKER DO 12/05/17 1050 STEPHANIE [email or web address].[email or web address]
--- NOTE | ~2017-11-08 | PR ---
[place], [place] PROGRESS NOTE [id number] UNIT #: [id number] ROOM: 317 DOCTOR: QING FRANKS DO BIRTHDATE: [birth year] DOS: 11/11/2017 PSYCHIATRIC PROGRESS NOTE CHIEF COMPLAINT: "I feel much better today." SUMMARY OF VISIT: The patient is a 72-year-old white male who was initially admitted to the medical floor at [facility] due to significant shortness of breath with a past medical history of COPD. The patient is currently on hospital day #3 with improved breathing and improved mood. Today, the patient was interviewed in the dining room prior to lunch. He did not voice any concerns at this time. He states that his appetite and his sleep have both improved. He reports no issues with appetite previous, but does note that he has increased appetite during this admission. No signs of combative behavior towards self or others were noted during the exam. he did not appear to be agitated. On the contrary, he readily engaged in conversation and was very pleasant. He did not voice any concerns at this time. He did state that his breathing has improved. Per nursing staff, the patient was able to tolerate BiPAP for 1-12 hours last night and then he was able to sleep a total of 5 hours uninterrupted. MENTAL STATUS EXAMINATION: The patient is alert and oriented to person, place and occasionally to time. His mood is trending towards euthymia. His affect is more appropriate. No signs of ligia, hypomania or psychosis were noted during exam: The patient readily engaged in conversation. He was able to appropriately answer questions. He was cooperative with exam. No signs of combative behavior. PLAN: 1. The patient started on the Exelon 4.6 mg topically daily. 2. No other psychotropic changes to be made to medications at this time as the patient is tolerating regimen well without side effects. 3. We will continue to engage the patient in individual and lui milieu activity, returning to the least restrictive environment when psychiatrically stable. 4. Disposition: The patient likely to be discharged sometime later this week depending on psychiatric and medical status at that time. 5. Internal Medicine hospitalist team is managing the patient's COPD and other comorbid medical conditions at this time. As stated previously, discharge will depend on medical and psychiatric status. ADDENDUM Dr. Tipton 12/05/17 10:48 am: Above note reviewed. Agree with observations, recommendations, and overall treatment plan. [place], [place] PROGRESS NOTE NAME: NICHOLE DISLA UNIT #: [id number] ROOM: [facility] DOCTOR: QING FRANKS DO BIRTHDATE: [birth year] Qing Franks DO DARIELA TIPTON MD CM:JULIO CÉSAR [id number] QING FRANKS DO 12/05/17 1049 STEPHANIE [email or web address].SRIDHARR
--- NOTE | ~2017-11-08 | PR ---
[place], [place] PROGRESS NOTE [id number] UNIT #: [id number] ROOM: 317 DOCTOR: DARIELA TIPTON MD BIRTHDATE: [birth year] DOS: 11/14/2017 CHIEF COMPLAINT: "I am so sore, they really worked me over." SUMMARY OF THE VISIT: The patient was interviewed as he sat in the quiet room eating his breakfast. He was bright and pleasant upon approach and joked with me that he slept the hardest he has ever slept and nurses concurred that he slept 7 interrupted hours. He was fairly bright upon exam and other than complaining of muscle aches from being worked out by physical therapy is in good spirits. He is anxious to be able to be discharged from here and realizes that he is going into a rehab facility to build up his strength. He convincingly denies any medication side effects and none were noted. There was no sedation, somnolence, extrapyramidal symptoms or tardive dyskinesia. MENTAL STATUS: He is alert and oriented with some time gaps. Mood does seem to be trending towards euthymia. Affect is more appropriate. There is no ligia, hypomania or psychosis. Short term memory has some gaps, but otherwise he is intact. PLAN: I will maintain his current dose of trazodone which is 300 mg at bedtime, maintain the Seroquel which is aiding his mood stability and also decreasing his anxiety and maintain his Exelon patch at 9.5. Awaiting PASAR to explore discharge plans. DARIELA TIPTON MD CM:PNTRANS [phone] DARIELA TIPTON MD 11/14/17 2334 interface
--- NOTE | ~2017-11-08 | WRIGHTHP ---
[place], [place] PATIENT HISTORY AND PHYSICAL EXAM NAME[id number] UNIT #: [id number] ROOM: 317 DOCTOR: DARIELA TIPTON MD BIRTHDATE: [birth year] DOS: 11/09/2017 CHIEF COMPLAINT: "My breathing is better, I think." HISTORY OF PRESENT ILLNESS: This is a 72-year-old white male who was initially admitted to the medical floor at [facility] due to significant shortness of breath with respiratory failure and hypoxemia. He was initially found to be very confused and disoriented. I was consulted to see him and on the morning that I evaluated him both myself and the resident, who was on the case, felt that he had cleared considerably and was much more oriented and conversant; however, later that evening, the patient's sundown and became increasingly combative where a code evy had to be called on him to prevent harm to self and others. The patient continues to have these episodic mood swings, where he becomes very agitated and aggressive and cannot be redirected. Because of the severity of these mood swings and the risk for harm to self and others, he was admitted to the U for further evaluation and management. PAST MEDICAL HISTORY: Remarkable for abdominal aortic aneurysm, chronic diastolic congestive heart failure, COPD, diabetes, hyperlipidemia, hypertension, macrocytic anemia, metabolic encephalopathy, protein calorie malnutrition, nicotine dependence, vitamin D deficiency. SOCIAL HISTORY: The patient is a current smoker and has done a half a pack since the age of 19. He does not drink alcohol or use illicit drugs. ALLERGIES: He has allergies to PROCAINE. STRENGTHS: He has good verbal skills and is ambulatory and has a supportive living environment. MENTAL STATUS: He is alert and oriented with time gaps. Mood does seem to be rather labile, but redirectable now. This seems to worsen in the evening. There are no overt auditory or visual hallucinations at the current evaluation. Short-term memory has some mild gaps, otherwise he is intact. DIAGNOSIS: Major depression, recurrent, severe, rule out with psychotic features, rule out intermittent explosive disorder. PLAN: I have maintained him on Remeron 15 mg at bedtime. I had initially started him on Risperdal, but his anxiety component is so great throughout the day and he is not sleeping well at night, I am going to switch to Seroquel 25 mg twice daily and 50 mg at bedtime to decrease mood lability and also to decrease anxiety. We will engage in individual and lui milieu activity, returning to the least restrictive environment when psychiatrically stable. [place], [place] PATIENT HISTORY AND PHYSICAL EXAM NAME: NICHOLE DISLA UNIT #: [id number] ROOM: [facility] DOCTOR: DARIELA TIPTON MD BIRTHDATE: [birth year] DARIELA TIPTON MD CM:HISPHYS:PATIENT HISTORY AND PHYSICAL EXAMINATION [phone] DARIELA TIPTON MD 11/09/17 1110 interface
--- NOTE | ~2017-11-08 | DS ---
[place], [place] DISCHARGE SUMMARY NAME: NICHOLE DISLA [facility] #: [id number] UNIT #: [id number] ROOM: 317 DOCTOR: DARIELA TIPTON MD BIRTHDATE: [birth year] DOS: 11/19/2017 CHIEF COMPLAINT: "My breathing is better, I think." HISTORY OF PRESENT ILLNESS: This is a 72-year-old white male who was initially admitted to the medical floor at [facility] due to significant shortness of breath with respiratory failure and significant hypoxemia. The patient was initially found to be confused and disoriented. On the day that I did evaluate him he was very clear and was able to clearly tell me why he was in the hospital and how long he had been here; however, later that same evening, the patient did become very confused appearing to be sundowning and was combative and a code evy had to be called to prevent harm to self and others. He continued to have these episodic mood swings during the latter part of his medical stay necessitating him being transferred to the U for further evaluation, to stabilize on medication and to determine the least restrictive environment to which he could be discharged once stable. PAST MEDICAL HISTORY: Remarkable for an abdominal aortic aneurysm, chronic diastolic congestive heart failure, COPD, diabetes, hyperlipidemia, hypertension, macrocytic anemia, metabolic encephalopathy, protein-calorie malnutrition, nicotine dependence, and vitamin D deficiency. SOCIAL HISTORY: The patient is a current smoker and has smoked a half a pack of cigarettes a day since the age of 19. He denies drinking alcohol or any illicit drug use. ALLERGIES: Listed to PROCAINE. STRENGTHS: He has good verbal skills, is ambulatory and has a supportive family situation. SUMMARY OF THE HOSPITAL COURSE: The patient was admitted to the unit where he was started on Remeron 15 mg at bedtime to combat depressive symptomatology. Because of the significant cognitive loss to which he did later admit that he has noticed that he was slipping with his memory, he was started on Exelon 4.6 mg daily. His anxiety level during the day and mood swings during the day continued to be problematic to the point where Seroquel 25 mg twice daily and 50 mg at bedtime was added with a significant decrease in his mood swings and a decrease in his anxiety. His sleep continued to be problematic and he tended to write this off as a longstanding problem lasting well over 40 years. Staff reported that he would get approximately 2-4 hours of uninterrupted sleep at night. Because the sleep was so problematic and his behavior seemed to worsen because of lack of sleep, Remeron was discontinued and trazodone 150 mg at bedtime was added. During the same period of time, the Exelon dose was increased to its maximum dose of 13.3 mg daily without incident. Eventually, the trazodone was increased to 300 mg at bedtime with extremely good results. In fact, the patient slept soundly for a good 6-8 hours without interruption, waking up refreshed and much more clear. He himself voiced that this is the best sleep that he had ever received for years. With the trazodone in place and the Seroquel in place, his mood swings dissipated. He voiced a willingness and [place], [place] DISCHARGE SUMMARY NAME: NICHOLE DISLA UNIT #: [id number] ROOM: [facility] DOCTOR: DARIELA TIPTON MD BIRTHDATE: [birth year] a readiness to return back home and did not feel that he needed to go into a less than 30-day rehab stay. The patient's concurred that he had improved significantly with this combination and was ready to have him return home. The patient was discharged then back home on November 19. MENTAL STATUS AT DISCHARGE: The patient was alert and oriented with only mild time gaps. Mood was significantly trending towards euthymia. Affect was much more appropriate. Speech rate and pattern was within normal limits. He was actually able to joke and laugh and be spontaneous. There was no symptom suggestive of hypomania or ligia. Likewise, there were no overt auditory or visual hallucinations noted. There was no paranoia voiced or other delusions. Short-term memory had mild gaps, but overall he was significantly intact. FINAL DIAGNOSES AT DISCHARGE: Major depression, recurrent, severe and anxiety disorder, not otherwise specified. DISPOSITION: The patient is to return home. All of his prescriptions have been printed and will be sent with him. He is medically and psychiatrically stable. His biopsychosocial needs are adequately being met by the community at large. DARIELA TIPTON MD CM:RAHEEL [id number] DARIELA TIPTON MD 11/19/17 1016 interface
--- NOTE | ~2017-11-08 | PR ---
[place], [place] PROGRESS NOTE [id number] UN[facility] #: [id number] ROOM: 317 DOCTOR: QING FRANKS DO BIRTHDATE: [birth year] DOS: 11/12/2017 PSYCHIATRIC PROGRESS NOTE CHIEF COMPLAINT: "I only sleep 3-4 hours a day that is normal for me." SUMMARY OF VISIT: The patient is a 72-year-old white male who was initially admitted to the medical floor at [facility] due to shortness of breath and respiratory failure. He was then transferred to the [facility] and currently on hospital day #4 with decreased energy, anhedonia and sleep disturbance. The patient was interviewed this morning in the dining room. He was eating breakfast at the time, did not appear to be in any form of distress. Per nursing staff, yesterday, the patient had a very difficult time as he is a from [place]. He states that "[facility] the date of the year." The patient did not sleep at all last night. Per nursing staff, the patient was only able to tolerate the BiPAP for 1.5 hours on and off. The patient was more anxious yesterday. He did attend group and did participate and no signs of withdrawal were noted per staff. However, sundowning did occur in the afternoon. The patient did not sleep any at all last night per nursing staff. This morning when patient was interviewed, I asked about his sleep, he said he normally sleeps 3-4 hours a day and that is all that is required. He did not mention the Memorial Day. It appears the patient is suffering from forms of PTSD and with yesterday being [facility] Day, it increased his anxiety. We discussed with the patient that changes to his psychotropic regimen would be made to ensure that he has more restful sleep. The patient did not voice any other concerns at that time. MENTAL STATUS EXAMINATION: The patient is alert and oriented to person, place and occasionally to time. His mood is more euthymic. His affect is more appropriate. No signs of ligia, hypomania or psychosis were noted during the exam. Upon entering the lui, the patient was ambulating with a steady gait and participating in physical therapy. This morning the patient readily engaged in conversation and he was able to answer questions appropriately. He was cooperative with exam. There were no signs of combative behavior. The patient did admit to having a difficult time sleeping last night; however, he did not elaborate. PLAN: 1. We have increased his Exelon patch to 9.5 mg q.a.m. 2. We have discontinued Remeron. It appears that the patient is still having difficulty sleeping. Appetite does not appear to be a problem, so this will be switched to trazodone 150 mg p.o. at bedtime. We are adding this to supplement psychotropic regimen to increase restful sleep. 3. Disposition: The patient likely to be discharged either tomorrow, Saturday, November 13 or , 11/14/2017. The patient is scheduled to return back home and this will depend on psychiatric medical status at that time. Until then, we will continue to engage the patient in individual and lui milieu activity, returning to the least restrictive environment when psychiatrically stable. [place], [place] PROGRESS NOTE NAME: NICHOLE DISLA UNIT #: [id number] ROOM: 317 DOCTOR: QING FRANKS DO BIRTHDATE: [address] Tipton 12/05/17 10:48 am: Above note reviewed. Agree with observations, recommendations, and overall treatment plan. Qing Franks DO DARIELA TIPTON MD CM:JULIO CÉSAR [id number] QING FRANKS DO 12/05/17 1049 STEPHANIE PATEL.HUSAM
--- NOTE | ~2017-11-08 | PR ---
[place], [place] PROGRESS NOTE [id number] UNIT #: [id number] ROOM: 317 DOCTOR: QING FRANKS DO BIRTHDATE: [birth year] DOS: 11/13/2017 CHIEF COMPLAINT: "I've been sleeping fine." SUMMARY OF VISIT: The patient is a 72-year-old white male who was initially admitted to the medical floor at [facility] due to increased shortness of breath and respiratory failure. He was there and medically stabilized and transferred to the [facility] and currently on hospital day #5 with improved mood and improved sleep. The patient was interviewed this morning in the dining room. He was sitting in a chair upright and did not appear to be in any form of distress. Per nursing staff, the patient slept 3 hours yesterday. This was an increase from the previous night where he did not sleep at all. The patient states that the trazodone did help him sleep well; however, the patient did state that he has been sleeping well for the past 3 days, but in fact the patient did not sleep at all on [facility] Day. Of note, the patient is a war and he did appear to be having a difficult day sleeping that night. Per nursing staff, the patient has still not been able to tolerate the BiPAP at night and the patient was noted to be disconnecting his supplemental oxygen. When asked this morning if this is true, the patient stated that he was not doing that and became slightly irritable. However, the patient does report improved sleep last night. The patient also was complaining of a rash to the left wrist to the volar aspect. This was not present on the previous day. We did reassure the patient that the only new medication that the psychiatric team has changed is trazodone, which was added yesterday. It is unlikely that it is due from this and looks more to be of contact dermatitis in etiology; however, we did report to the patient that this complaint would be referred to the internal hospitalist team and this was relayed to them during our morning rounds on the [facility]. The patient did not voice any other concerns and he did readily engage in conversation. He did not appear anxious at that time. MENTAL STATUS EXAMINATION: The patient is alert and oriented to person, place and time. His mood is trending towards more euthymic. His affect is more appropriate. He did appear slightly irritable when asked if he was wearing his oxygen and disconnecting it, which he denied; however, he quickly changed the topic and started discussing how he is sleeping fine. The patient was cooperative with exam and no signs of combative behavior toward self or others were noted. PLAN: 1. We have increased trazodone to 300 mg at bedtime. We are trying to improve sleep even more as the patient has been sleep deprived previously and trazodone has been tolerated well in the night before. We will continue to monitor the patient's regulation of sleep cycle. 2. Disposition is likely to be sometime next week when psychiatrically stable. Until then, we will continue to engage the patient in individual and lui milieu activity, returning to the least restrictive environment when psychiatrically stable. Discharge will pend on medical and psychiatric status at that time. ADDENDUM Dr. Tipton 12/05/17 10:48 am: [place], [place] PROGRESS NOTE NAME: NICHOLE DISLA UNIT #: [id number] ROOM: [facility] DOCTOR: QING FRANKS DO BIRTHDATE: [birth year] Above note reviewed. Agree with observations, recommendations, and overall treatment plan. Qing Franks DO DARIELA TIPTON MD CM:JULIO CÉSAR [phone] QING FRANKS DO 12/05/17 1050 [email or web address] [email or web address].[email or web address]
--- NOTE | ~2017-11-08 | PR ---
[place], [place] PROGRESS NOTE NAME: [facility]HOLE DISLA [facility] #: [id number] UNIT #: [id number] ROOM: 317 DOCTOR: XI ARORA MD BIRTHDATE: [birth year] DOS: 11/17/2017 SUBJECTIVE: Patient seen and spoke with the staff. Per staff, patient is doing well. No behavior problems or issues. Compliant with his medication. Patient was in the day area. He reports doing well. He is taking his medication regularly. Denied being depressed or sad. He reports good sleep and appetite. MENTAL STATUS EXAMINATION: Pleasant, cooperative. Described his mood as "good." Affect, mood congruent. Thought process goal directed. No flight of ideas, loosening of association. He denied auditory or visual hallucination. No delusion or paranoia noted. He denied suicidal ideation, intent or plan. He also denied any homicidal ideation, intent or plan. PLAN: 1. Continue current medication and care. 2. Continue redirection. 3. Supportive care. 4. Final medication management and discharge plan by the regular team. XI ARORA MD CM:PNTRANS [phone] XI ARORA MD 11/18/17 1601 interface
--- NOTE | ~2017-11-08 | PR ---
[place], [place] PROGRESS NOTE [id number] UNIT #: [id number] ROOM: 317 DOCTOR: DARIELA TIPTON MD BIRTHDATE: [birth year] DOS: 11/18/2017 CHIEF COMPLAINT: "I hope I get to get out of here soon." SUMMARY OF THE VISIT: The patient was interviewed in the dining area where he had oxygen on and he was eating his breakfast. He reports he is feeling well and feeling better and ready to leave. He is uncertain whether or not he wants to go home or go into a long-term care facility. He feels that he can adequately be able to go home, but will do whatever he feels the professional suggest of him. He is very happy that he is sleeping through the night and states that there has been many, many years, if not decades that he has slept this well. MENTAL STATUS: He is alert and oriented with some time gaps. Mood does seem to be improving. Affect is much more appropriate. There is no ligia, hypomania or psychosis. Short-term memory has mild gaps, but overall he is fairly well intact. PLAN: I will continue his current psychotropic regimen, continue to engage in individual and lui milieu activity with the ultimate plan to return to the least restrictive environment when psychiatrically stable. DARIELA TIPTON MD CM:PNTRANS [phone] DARIELA TIPTON MD 11/18/17 2336 interface
--- NOTE | ~2017-11-08 | PR ---
[place], [place] PROGRESS NOTE NAME[id number] UNIT #: [id number] ROOM: 317 DOCTOR: XI ARORA MD BIRTHDATE: [birth year] DOS: 11/16/2017 PSYCHIATRIC PROGRESS NOTE SUBJECTIVE: The patient seen and spoke with the staff. Per staff, the patient is doing well, med compliant. No behavior problems or issues. The patient was pleasant and cooperative. He was in the day area. He reported doing well. He denied any depressed mood or hopelessness, denied any other neurovegetative signs of depression. He is taking his medication regularly and did not have any side effect. MENTAL STATUS EXAMINATION: Pleasant, cooperative, described his mood as "okay." Affect, mood congruent. Thought process goal-directed. No flight of idea or loosening of association. He denied auditory or visual hallucination. No delusion or paranoia. He denied suicidal ideation, intent or plan. He also denied homicidal ideation, intent or plan. PLAN: 1. Continue current medication and care. 2. Continue redirection. 3. Supportive care. XI ARORA MD CM:PNTRANS 44 [phone] XI ARORA MD 11/17/17345 interface
--- NOTE | ~2017-11-08 | PR ---
[place], [place] PROGRESS NOTE NAME: NICHOLE DISLA UNIT #: [id number] ROOM: 317 DOCTOR: DARIELA TIPTON MD BIRTHDATE: [birth year] DOS: 11/10/2017 CHIEF COMPLAINT: "I feel pretty good. I slept okay." SUMMARY OF THE VISIT: The patient was interviewed as he was eating breakfast. He reports that overall he is feeling better. States he slept well, had a good breakfast and is anxious to get back home to his and his dogs. Nurses report episodic periods of worsening confusion. These periods seem to occur more frequently at night. We will continue to monitor this to determine if treatment is warranted or not. He did seem to do better with the Seroquel yesterday than he did with the Risperdal and that seemed to have helped with the agitation and the anxiety. MENTAL STATUS: He is alert and oriented to person, place and very approximate to time. Mood does seem to be trending towards euthymia. Affect is more appropriate. There is no ligia, hypomania or psychosis at the present time. Short-term memory has gaps. PLAN: I will maintain his current psychotropic regimen. Consider adding Exelon patch or Namenda at this point, but we will monitor, engage in individual and lui milieu activity, returning to the least restrictive environment when stable. DARIELA TIPTON MD CM:PNTRANS [id number] DARIELA TIPTON MD 11/10/17 1353 interface
[~2017-11-08 15:39] MED LIST changes: +B-121000 MCG PO; +CLARITIN10 MG PO; +EC NAPROSYN500 MG PO; +GUAIFENESI100 MG/52 PO; +LIPITOR80 MG PO; +VITAMIN D31000 UNI1 PO
[2017-11-08 17:07] VITALS: BP 127/70
[2017-11-08 19:59] VITALS: BP 109/59
[2017-11-09 06:24] LABS: HEMATOCRIT 41.1 % (42.0-52.0); HEMOGLOBIN 11.9 g/dl (14.0-18.0); LYMPH # 1.7 10*3/uL (1.3-4.4); MEAN CORPUSCULAR HGB 28.7 pg (27.0-31.0); MEAN PLATELET VOLUME 10.5 fl (9.6-12.3); MONO # 0.8 10*3/uL (0.1-1.0); MONO % 10.7 % (3.0-9.0); NEUT # 5.1 10*3/uL (2.3-7.9); NEUT % 66.9 % (47.0-73.0); PLATELET COUNT AUTOMATED 114 10*3/uL (130-400); RED BLOOD COUNT 4.15 10*6/uL (4.50-5.90); RED CELL DISTRI WIDTH 13.7 % (0-14.5); WHITE BLOOD COUNT 7.7 10*3/uL (4.8-10.8)
[2017-11-09 07:02] LABS: ALBUMIN 3.3 gm/dl (3.1-4.5); ALKALINE PHOSPHATASE 45 U/L (45-117); BUN 40 mg/dl (7-24); CHLORIDE 100 mmol/L (98-107); CHOLESTEROL 154 mg/dL (<200); CREATININE 0.92 mg/dL (0.70-1.30); HDL CHOLESTEROL 75 mg/dl (40-60); LDL CHOLESTEROL 62 mg/dL (9-159); POTASSIUM 3.3 mmol/L (3.5-5.1); SGOT/AST 15 IU/L (3-35); SGPT/ALT 16 U/L (12-78); SODIUM 144 mmol/L (136-145); TOTAL PROTEIN 6.1 gm/dL (6.4-8.2); TRIGLYCERIDES 84 mg/dl (<150); VLDL CHOLESTEROL 17 mg/dL (6-40)
[2017-11-09 08:10] VITALS: BP 107/63
[2017-11-09 20:00] VITALS: BP 98/60
[2017-11-10 07:00] LABS: BUN 39 mg/dl (7-24); CHLORIDE 104 mmol/L (98-107); CREATININE 0.84 mg/dL (0.70-1.30); POTASSIUM 3.7 mmol/L (3.5-5.1); SODIUM 146 mmol/L (136-145)
[2017-11-10 07:58] VITALS: BP 106/60
[2017-11-10 08:08] VITALS: BP 110/70
[2017-11-10 20:00] VITALS: BP 107/64
[2017-11-11 06:34] LABS: BASO % 0.1 % (0.0-1.0); EOS % 0.4 % (1.0-4.0); HEMATOCRIT 38.1 % (42.0-52.0); LYMPH # 1.7 10*3/uL (1.3-4.4); LYMPH % 21.8 % (27.0-41.0); MEAN CELL VOLUME 98.4 fl (80.0-94.0); MEAN CORPUSCULAR HGB 28.4 pg (27.0-31.0); MEAN CORPUSCULAR HGB CONC 28.9 g/dl (33.0-37.0); MEAN PLATELET VOLUME 10.8 fl (9.6-12.3); MONO # 0.7 10*3/uL (0.1-1.0); MONO % 9.4 % (3.0-9.0); NEUT # 5.2 10*3/uL (2.3-7.9); NEUT % 67.8 % (47.0-73.0); PLATELET COUNT AUTOMATED 98 10*3/uL (130-400); RED BLOOD COUNT 3.87 10*6/uL (4.50-5.90); RED CELL DISTRI WIDTH 13.6 % (0-14.5); WHITE BLOOD COUNT 7.7 10*3/uL (4.8-10.8)
[2017-11-11 07:01] LABS: BUN 34 mg/dl (7-24); CHLORIDE 106 mmol/L (98-107); CREATININE 0.81 mg/dL (0.70-1.30); POTASSIUM 3.7 mmol/L (3.5-5.1); SODIUM 144 mmol/L (136-145)
[2017-11-11 07:43] VITALS: BP 114/78
[2017-11-11 20:00] VITALS: BP 127/66
[2017-11-12 07:44] VITALS: BP 118/66
[2017-11-12 19:59] VITALS: BP 108/84
[2017-11-13 08:00] VITALS: BP 110/67
[2017-11-13 20:00] VITALS: BP 111/77
[2017-11-14 08:04] VITALS: BP 112/62
[2017-11-14 20:00] VITALS: BP 111/71
[2017-11-15 08:49] VITALS: BP 119/67
[2017-11-15 19:34] VITALS: BP 112/69
[2017-11-16 07:45] VITALS: BP 128/64
[2017-11-16 20:00] VITALS: BP 125/77
[2017-11-17 07:49] VITALS: BP 127/73
[2017-11-17 08:14] LABS: BASO % 0.1 % (0.0-1.0); EOS # 0.1 10*3/uL (0.0-0.4); EOS % 1.3 % (1.0-4.0); HEMATOCRIT 39.3 % (42.0-52.0); HEMOGLOBIN 11.4 g/dl (14.0-18.0); LYMPH # 2.1 10*3/uL (1.3-4.4); LYMPH % 21.5 % (27.0-41.0); MEAN PLATELET VOLUME 10.1 fl (9.6-12.3); MONO # 1.1 10*3/uL (0.1-1.0); MONO % 10.7 % (3.0-9.0); NEUT # 6.5 10*3/uL (2.3-7.9); NEUT % 66.1 % (47.0-73.0); PLATELET COUNT AUTOMATED 197 10*3/uL (130-400); RED BLOOD COUNT 3.93 10*6/uL (4.50-5.90); RED CELL DISTRI WIDTH 13.6 % (0-14.5); WHITE BLOOD COUNT 9.9 10*3/uL (4.8-10.8)
[2017-11-17 08:29] LABS: BUN 24 mg/dl (7-24); CHLORIDE 102 mmol/L (98-107); CREATININE 0.81 mg/dL (0.70-1.30); POTASSIUM 4.5 mmol/L (3.5-5.1); SODIUM 141 mmol/L (136-145)
[2017-11-17 20:00] VITALS: BP 108/68
[2017-11-18 08:18] VITALS: BP 117/65
[2017-11-18 20:00] VITALS: BP 109/66
[2017-11-19 08:05] VITALS: BP 124/78
[2017-11-19] MEDS ORDERED: QUETIAPINE FUMA50 M1 PO (09:04)
[2017-11-19] MEDS ORDERED: TRAZODONE150 MG PO (09:04)
[2017-11-19] MEDS ORDERED: EXELON13.3 MG/21 T (09:04)
[2017-11-19] MEDS ORDERED: QUETIAPINE FUMA25 MG PO (09:04)
[2017-11-19] MEDS ORDERED: PREDNISONE10 MG PO (11:05)
== END 2017-11-19 17:20 | disposition home or self-care (01) | DRG 885 ==
LOC: 3N 15:39
PROVIDERS: Internal Medicine; Psychiatry & Neurology Psychiatry
PROC: 5A09357 Assistance with Respiratory Ventilation, Less than 24 Consecutive Hours, Continuous Positive Airway Pressure (ICD-10-PCS; principal; 2017-11-09)
PROC: 5A09357 Assistance with Respiratory Ventilation, Less than 24 Consecutive Hours, Continuous Positive Airway Pressure (ICD-10-PCS; 2017-11-10)
DX: F33.2 Major depressive disorder, recurrent severe without psychotic features (principal); J96.11 Chronic respiratory failure with hypoxia; E11.65 Type 2 diabetes mellitus with hyperglycemia; I50.32 Chronic diastolic (congestive) heart failure; I11.0 Hypertensive heart disease with heart failure; F23 Brief psychotic disorder; E87.6 Hypokalemia; E78.5 Hyperlipidemia, unspecified; E78.00 Pure hypercholesterolemia, unspecified; D53.9 Nutritional anemia, unspecified; I71.4 Abdominal aortic aneurysm, without rupture; R82.71 Bacteriuria; F17.210 Nicotine dependence, cigarettes, uncomplicated; J44.9 Chronic obstructive pulmonary disease, unspecified; F41.9 Anxiety disorder, unspecified; Z88.8 Allergy status to other drugs, medicaments and biological substances; Z87.01 Personal history of pneumonia (recurrent); Z83.6 Family history of other diseases of the respiratory system; Z99.81 Dependence on supplemental oxygen; Z80.8 Family history of malignant neoplasm of other organs or systems; Z79.899 Other long term (current) drug therapy; Z71.6 Tobacco abuse counseling

== ENCOUNTER 2018-03-28 09:50 | Inpatient (IN) | payer MEDICARE, OTHER ==
[~2018-03-28] VITALS: Ht 180.3 cm; Wt 80.3 kg
--- NOTE | ~2018-03-28 | CON ---
[place], [place] REPORT OF CONSULTATION NAME: NICHOLE DISLA UNIT #: [id number] ROOM: [facility] DOCTOR: RIGO KILLIAN MD,TIARA BIRTHDATE: [birth year] DOS: 03/29/2018 PULMONARY CONSULTATION EVALUATION MANAGEMENT CONSULTATION REQUESTED BY: Hospitalist Service. REASON FOR CONSULTATION: Assessment of current hypercapnia and respiratory failure with chronic obstructive pulmonary disease exacerbation. HISTORY OF PRESENT ILLNESS: This is a 73-year-old white male patient who has been admitted to the hospital under the care of hospitalist services on 03/28/2018. The patient presented to the Emergency Room as reporting having symptoms of increased shortness of breath, which has been occurring at home. The patient was noted with symptoms of some nonproductive cough as well, but not sure about wheezing, but the symptoms has been present for approximately 3 days. The patient has not been noted with any symptoms of any chest pain. He has been assessed in the hospital noted severe hypercarbia decreased pH with the diagnosis of [id number] hypercapnic respiratory failure. The patient was initially admitted in telemetry floor and then later on transferred to the Intensive Care Unit because of lethargy. He had been starting on the BiPAP with the setting has been changed for the patient based on the ventilatory failure management. Currently, the patient has been using oxygen supplementation 4 liters nasal cannula, noted awake and alert without any lethargy, does have symptoms of nonproductive cough, which is mild to moderate, shortness breath was described minimal at rest. There were no symptoms of chest pain reported by the patient. Wheezing was described intermittently. REVIEW OF SYSTEMS: CONSTITUTIONAL: Fatigue and tiredness noted without any symptoms of fever or chills. EYES: Denies burning, redness, or tenderness. EARS, NOSE, THROAT SYMPTOMS: Denies sore throat, hoarseness, otalgia, postnasal drainage or epistaxis. CARDIOVASCULAR: Denies angina pain, edema, pain of the lower extremities. GASTROINTESTINAL: No dysphagia, nausea, vomiting, diarrhea, abdominal pain, hematemesis, melena, or hematochezia. SKIN: Denies lesions or rashes. Chronic changes of the skin was noted. MUSCULOSKELETAL: Denies joint pain, redness, or deformity. CENTRAL NERVOUS SYSTEM: Denies headache, diplopia, or syncopal episodes. Remaining systems were reviewed and they were noted all negative. PAST MEDICAL HISTORY: 1. Known with history of end-stage COPD. 2. Chronic hypercapnic respiratory failure. 3. Vitamin D deficiency. 4. 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 PAST SURGICAL HISTORY: Noted none major significant surgeries. [place], [place] REPORT OF CONSULTATION NAME: NICHOLE DISLA UNIT #: [id number] ROOM: [facility] DOCTOR: RIGO KILLIAN MD,TIARA BIRTHDATE: [birth year] SOCIAL HISTORY: The patient is and lives at home. He has been noted with a history of alcohol use intermittently. There was no history of illicit drug use noted at this time. Tobacco use noted started as teenager per the patient, approximately pack of cigarettes per day. Stated that he has been cutting down his smoking at this time. Smoking 1 pack in 4 days. Denies history of alcohol. SOCIAL HISTORY: The patient stated he has been exposed to Agent Potter as well during the [place] War. FAMILY HISTORY: Unknown by the patient. CURRENT MEDICATIONS: Administered were noted use of Norvasc, Lasix oral, lisinopril, Lovenox for DVT prophylaxis, rivastigmine, aspirin, atorvastatin, Mucinex, IV Solu-Medrol and DuoNeb q.4 hours, Levaquin, and others. ALLERGIES: Noted allergies to the PROCAINE. PHYSICAL EXAMINATION: GENERAL: This is a 73-year-old white male patient has been noted currently awake and alert without acute distress. Height of 5 feet 11 inches. Weight for this patient was noted as 179 pounds, BMI 24.9. VITAL SIGNS: Noted as normal temperature, respiratory rate range between 20-13, heart rate of 87-78, blood pressure 100/52-130/80. Pulse oxygen saturation recorded as 100% on 50% oxygen supplementation with the BiPAP related as 95% saturation. HEENT: Noted normal. Oral mucosa was moist. Head was atraumatic. Eyes nonicterus. CARDIOVASCULAR: S1, S2 heard. LUNGS: Noted general reduction in breath sounds bilaterally. There were no crackles. Scattered expiratory wheezing with decreased breath sounds. ABDOMEN: Soft, nontender, bowel sounds present. EXTREMITIES: The patient noted without acute edema. MUSCULOSKELETAL: Without any acute deformities. SKIN: Chronic changes with the dryness of the skin. MUSCULOSKELETAL: Noted without any acute deformities. CENTRAL NERVOUS SYSTEM: Cranial nerve examination of the 2-12 intact. MUSCULOSKELETAL: Without acute deformities. LABORATORY DATA: CBC that was done yesterday noted normal WBC count. Platelet count 108, mildly decreased. Hemoglobin 11.5, hematocrit was normal. The CMP, glucose 186, BUN and creatinine was normal. CO2 was noted at 53. Magnesium 2.2. The lactic acid noted as normal. The arterial blood gas yesterday pH of 7.29, pCO2 of 108, pO2 of 46.8. Arterial blood gas today of the patient showed BiPAP, pH of 7.22, pCO2 of 111, pO2 of 81. Arterial blood gas of the patient dated today, first blood venous gas. The second blood gas was noted with pH of 7.28, pCO2 of 106, pO2 of 71 with 4 liters nasal cannula at rest. The CBC this morning, hemoglobin 10.2, WBC count normal, platelet count was still noted decreased to 112,000. [place], [place] REPORT OF CONSULTATION NAME: NICHOLE DISLA UNIT #: [id number] ROOM: [facility] DOCTOR: RIGO KILLIAN MD,TIARA BIRTHDATE: [birth year] IMAGING STUDIES: Chest x-ray of the patient 1 view, which was done during this hospitalization noted with change of COPD, hyperinflation without acute pulmonary infiltration. IMPRESSION: 1. The patient admitted to the hospital for severe acute hypercapnic respiratory failure, chronic hypercapnia and possibly hypoxia as well as a result of acute exacerbation of chronic obstructive pulmonary disease hypercarbia. 2. Metabolic alkalosis noted related to the chronic hypercarbic respiratory failure as well, still noted CO2 of 50. 3. Apparent chronic nicotine dependence as well. There was no evidence of acute pneumonia. 4. History of type 2 diabetes mellitus as well. 5. History of chronic congestive heart failure with a diastolic dysfunction without any acute congestive heart failure at this time. PLAN OF MANAGEMENT: Continue current dose of Solu-Medrol, bronchodilators every 4 hours. Start the patient on Pulmicort Respules because lack of his home medications use for this patient at this time and availability for the hospital formulary. Continuation of the BiPAP use except the meals. The patient will be started on the Diamox at this time 250 mg b.i.d. for to help resolve the metabolic alkalosis. Monitoring the potassium level with the use of the Diamox. Diamox will be used for this patient for the next total of 8 doses. Other supportive therapy, plan of management, care plan. The patient may be transferred from the Intensive Care Unit medical floor with continued treatment as previously needed. All other supportive therapy, plan of management, care plan and therapies. Usual care. Thank you for allowing me to participate in the care of this patient. TIARA SIERRA MD CM:CONSTR:REPORT OF CONSULTATION 1359 03/30/18 0321 interface
--- NOTE | ~2018-03-28 | PR ---
[place], [place] PROGRESS NOTE NAME: NICHOLE DISLA UNIT #: [id number] ROOM: 401 DOCTOR: TIARA FELIPE MD BIRTHDATE: [birth year] DOS: 03/30/2018 SUBJECTIVE: The patient noted comfortable at this time, lying in the bed, reduction in shortness breath was noted. The cough has been noted mild with no symptoms of chest pain, fever or chills. No abdominal pain. He has used the BiPAP only for 4 hours and increase the use of BiPAP at this time. Oxygen supplementation continuation of the time, pulse oxygen 92% or greater. OBJECTIVE: VITAL SIGNS: Normal temperature, respiratory rate 18, heart rate 75, blood pressure 120/70 this morning. The pulse ox saturation on 4 liters nasal cannula 93% saturation. HEAD, EYES, EARS, NOSE, AND THROAT: Examination shows head was atraumatic. Eyes nonicterus. NECK: Supple. CARDIOVASCULAR: S1, S2 is audible. LUNGS: The patient noted with severe diminished breath sounds bilaterally. There are no wheezes or crackles. ABDOMEN: Soft, nontender. Bowel sounds present. EXTREMITIES: Without any acute changes. LABORATORY DATA: BMP, which was done this morning was noted BUN normal, creatinine normal, glucose 108. CO2 of 49. IMPRESSION: Metabolic alkalosis secondary to hypercarbia, chronic severe hypercapnic hypoxic respiratory failure. Arterial blood gas today shows pH of 7.7. PT of 94. The patient nicotine dependence as well. History of nonadherence to the treatment. PLAN OF MANAGEMENT: Continue the diuretic, Diamox, monitoring the potassium level. Continuation of the bronchodilators, oxygen supplementation. Continue current dose of Solu-Medrol. Other additional treatment changes will be ordered based on progression of the illness. Encouraged to use the BiPAP as ordered. [place], [place] PROGRESS NOTE NAME: NICHOLE DISLA UNIT #: [id number] ROOM: 401 DOCTOR: TIARA FELIPE MD BIRTHDATE: [birth year] TIARA SIERRA MD CM:PNTRANS [phone] TIARA KILLIAN MD 04/10/18 0912 interface
--- NOTE | ~2018-03-28 | PR ---
[place], [place] PROGRESS NOTE NAME: NICHOLE DISLA UNIT #: [id number] ROOM: 401 DOCTOR: RIGO KILLIAN MD,TIARA BIRTHDATE: [birth year] DOS: 03/31/2018 PULMONARY PROGRESS NOTE SUBJECTIVE: The patient is noted comfortable this morning, but noted decreased responsiveness, noted sleepy, may not have used the BiPAP for a significant amount of time at night. The patient has been noted with hypercarbic respiratory failure as well. He was noted arousable but does not have any verbal communication. The patient has not been noted in any respiratory distress this morning. The review of systems could not be completed because of the patient's current decreased responsiveness and increased sleepiness. OBJECTIVE: VITAL SIGNS: Which have been recorded showed normal temperature, respiratory rate 20, heart rate 81, blood pressure 138/68-78. HEENT: Head was atraumatic. Eyes nonicterus. NECK: Supple. CARDIOVASCULAR: S1, S2 is audible. LUNGS: General reduction in breath sounds noted, still poor air exchange. ABDOMEN: Flat, soft, nontender. EXTREMITIES: Without acute edema. MUSCULOSKELETAL: Without acute deformity. SKIN: No lesions or rashes. Dryness of the skin. CENTRAL NERVOUS SYSTEM: Change in mental status, decreased responsiveness. Responds to the vocal commands, opening his eyes for a couple of seconds and then falls asleep. LABORATORY DATA: CMP this morning: BUN 32, creatinine normal, glucose 113, carbon dioxide noted 43, chloride of 95. CBC this morning: WBC count normal, hemoglobin 12.8, platelet count normal, MCV 101. IMPRESSION: 1. The patient with most likely [id number] hypercarbic respiratory failure, worsening of hypercapnia has been noted, lack of use of the BiPAP. 2. Resolving metabolic alkalosis. 3. Chronic severe hypercarbia. 4. Acute exacerbation of chronic obstructive pulmonary disease as well. PLAN OF MANAGEMENT: Majorly starting the BiPAP at previous setting of 03/04 should be continued for several hours. Monitor mental status. Usual care, other supportive plan of care and therapy and care plan. The patient could be approached for the palliative care and hospice care because of his advanced COPD as well. Continuation of other plan of therapy and supportive care management, plan of treatment. Usual care. Arterial blood gas will be ordered in a couple of hours to reassess the response to the BiPAP use. [place], [place] PROGRESS NOTE NAME: NICHOLE DISLA UNIT #: [id number] ROOM: [facility] DOCTOR: TIARA FELIPE MD BIRTHDATE: [birth year] TIARA SIERRA MD CM:PNTRANS [phone] TIARA KILLIAN MD 03/31/18 1158 interface
--- NOTE | ~2018-03-28 | PN ---
[place], [place] PROGRESS NOTE NAME: NICHOLE DISLA UNIT #: [id number] ROOM: 401 DOCTOR: PHI REID DPM BIRTHDATE: [birth year] DATE: 04/02/18 ADDENDUM TO RESIDENT REPORT: I rounded with the resident and concur with their diagnosis and treatment as documented by the resident. PHI REID DPM CM:PNTRANS [id number] PHI REID DPM 04/30/18 1551 STEPHANIE PATEL.[email or web address]
--- NOTE | ~2018-03-28 | PR ---
[place], [place] PROGRESS NOTE NAME: NICHOLE DISLA UNIT #: [id number] ROOM: 401 DOCTOR: RIGO KILLIAN MD,TIARA BIRTHDATE: [birth year] DOS: 04/02/2018 SUBJECTIVE: The patient noted comfortable using the BiPAP for a few hours at least at night. He has been noted more awake and alert this morning. Denies symptoms of chest pain, cough. The coughing has been subsiding. The wheezing was improving. OBJECTIVE: VITAL SIGNS: Normal temperature, respiratory rate 18, pulse 62, blood pressure 140/58. Pulse oxygen saturation patient on 40% oxygen, 95% saturation. HEENT: Head was atraumatic. Eyes nonicterus. NECK: Supple. CARDIOVASCULAR: S1, S2 audible. LUNGS: Moderate decreased breath sounds in the lungs bilaterally with improvement in air entry today. Scattered wheezing. ABDOMEN: Soft, nontender. Bowel sounds present. EXTREMITIES: Without any acute edema. LABORATORY DATA: CMP, which was done this morning, BUN 60, creatinine 1.32. Carbon dioxide 40. IMPRESSION: 1. Metabolic alkalosis, improving. 2. Acute on chronic hypercapnic hypoxic respiratory failure, exacerbation of chronic obstructive pulmonary disease, gradually. PLAN OF THERAPY: No changes in the plan of care at this time. Continue the patient's current plan of therapy as in progress and other usual plan of therapy and care. No change in treatment needs to be done today. TIARA SIERRA MD CM:JULIO CÉSAR [phone] TIARA KILLIAN MD 04/02/18 1620 interface
--- NOTE | ~2018-03-28 | CON ---
[place], [place] REPORT OF CONSULTATION NAME: NICHOLE DISLA UNIT #: [id number] ROOM: 401 DOCTOR: JR GUNDERSON MD BIRTHDATE: [birth year] DOS: 04/01/2018 ATTENDING PHYSICIAN: Dr. Carlo Briggs. HISTORY OF PRESENT ILLNESS: The patient is a 73-year-old gentleman with: 1. History of end-stage COPD, acute over chronic respiratory failure. 2. Nicotine smoke dependence. 3. Pneumonia. 4. Benign essential hypertension. 5. Abdominal aortic aneurysm. 6. Moderate protein calorie malnutrition. 7. Type 2 diabetes mellitus. 8. Mixed hyperlipidemia. 9. Chronic diastolic type CHF. 10. Major depression, recurrent. 11. Alzheimer's type dementia. The patient presently admitted at [facility] and being treated for acute exacerbation of COPD with acute over chronic respiratory failure. The patient has been refusing BiPAP and maintains a full code status. The patient is being followed by farm tractor operator, Dr. Vasquez. The patient continues to smoke cigarettes. Multiple medical issues. The patient lives at home with his and has significant disability and moderate protein-calorie malnutrition and advanced adult failure to thrive. Consult was obtained for palliative care. REVIEW OF SYSTEMS: RESPIRATORY: Increasing shortness of breath, cough, chest congestion. GASTROINTESTINAL: No nausea, vomiting, diarrhea, constipation, but the patient is malnourished. CARDIOVASCULAR: No chest pains or palpitations. FAMILY HISTORY: Noncontributory. SOCIAL HISTORY: The patient lives at home with his and continues to smoke cigarettes. Denies any alcohol or drug abuse. PRESENT MEDICATIONS: Amlodipine, furosemide, lisinopril, Lovenox, rivastigmine, Lipitor, Levaquin, temazepam. PHYSICAL EXAMINATION: GENERAL: Awake, alert, oriented x 3, in no visible distress. Generalized weakness. HEENT AND NECK: Extraocular movements are intact. Sclerae are anicteric. Oral mucosa is moist and clean. No obvious facial weakness. Neck is supple without any lymphadenopathy. No thyromegaly. No JVD. No carotid arterial bruits. LUNGS: Decreased breath sounds all over. CARDIOVASCULAR SYSTEM: Heart rate is regular in rate and rhythm. S1 and S2 normally audible. No significant murmur or any other abnormal cardiac sounds. [place], [place] REPORT OF CONSULTATION NAME: NIHCOLE DISLA UNIT #: [id number] ROOM: 401 DOCTOR: JR GUNDERSON MD BIRTHDATE: [birth year] ABDOMEN: Soft, nontender. No obvious organomegaly. Bowel sounds are present. No obvious herniation. EXTREMITIES: Without significant cyanosis or edema. Warm to touch. Muscle wasting. CENTRAL NERVOUS SYSTEM: Alert and oriented x 3. Cranial nerves II-XII are intact. Speech is normal. The patient is able to move all extremities. Normal muscle strength. Deep tendon reflexes are equal on both sides. Plantars were downgoing. IMPRESSION: The patient has advanced end-stage lung disease with acute over chronic respiratory failure, undergoing treatment at [facility] and being followed by Dr. Vasquez, the farm tractor operator. The patient also has moderate protein-calorie malnutrition, late onset Alzheimer's type dementia which is being treated with rivastigmine, chronic diastolic type congestive heart failure and his skilled nursing prognosis is suboptimal. I had a good discussion with the patient regarding his level of care. I discussed DNR comfort care code status with him. The patient says he may not want to be on mechanical ventilation and he will discuss it with his and let his doctor and nursing staff at the hospital know once he has decided. Dr. Briggs, thank you for asking me to see the patient. We will follow along with you as needed. JR GUNDERSON MD CM:CONSTR:REPORT OF CONSULTATION 34 04/02/18 0049 interface
--- NOTE | ~2018-03-28 | EKG ---
[place], [place] ELECTROCARDIOGRAM REPORT NAME: NICHOLE DISLA UNIT #: [id number] ROOM: 425 DOCTOR: TERESE DRAFT REPORT BIRTHDATE: [birth year] [facility] Test Date: 2018-03-28 Test Time: 10:10:58 Pat Name: NICHOLE DISLA Department: Room: 425 Gender: M Hunting Guide: Toña Grant : 1945 Requested By: HARRISON PRINCE Order Number: [id number] Reading MD: Luis Miguel Buck MD Measurements Intervals [place] Rate: 74 P: 54 GA: 183 QRS: 74 QRSD: 107 T: 32 QT: 417 QTc: 463 Interpretive Statements Sinus rhythm Supraventricular bigeminy Marked baseline artifact makes interpretation difficult Baseline wander in lead(s) II,aVF No previous ECG available for comparison Electronically Signed On 03-28-2018 11:11:19 PDT by Luis Miguel Buck MD CM:EKGRPT:ELECTROCARDIOGRAM REPORT [id number] HARRISON ROYAL DRAFT REPORT HARRISON PRINCE DO
--- NOTE | ~2018-03-28 | PR ---
[place], [place] PROGRESS NOTE NAME: NICHOLE DISLA UNIT #: [id number] ROOM: 401 DOCTOR: RIGO KILLIAN MD,TIARA BIRTHDATE: [birth year] DOS: 04/01/2018 SUBJECTIVE: The patient noted comfortable at this time this morning of assessment. He has been noted fully awake and alert this morning and used the BiPAP for a few hours yesterday morning and then later in the night. This morning, using oxygen supplementation. Denies symptoms of coughing, chest pain, or wheezing. OBJECTIVE: VITAL SIGNS: For the patient shows a normal temperature, respiratory rate was recorded as 18. The heart rate of 69, blood pressure 133/66. Pulse oxygen saturation was noted on 3-4 liters nasal cannula 92%-96% saturation. HEENT: Head was atraumatic. Eyes, nonicterus. NECK: Supple. CARDIOVASCULAR: S1, S2 was audible. LUNGS: Without any wheeze or crackle at the present time. ABDOMEN: Soft, nontender. EXTREMITIES: Noted without any acute edema. IMPRESSION: The patient with resolving [id number] hypercapnic hypoxic respiratory failure with severe hypercapnia, resolving metabolic alkalosis. The CO2 level was noted 42 today, potassium is still maintained as normal. PLAN OF MANAGEMENT: The patient will be encouraged about continued use of current plan of management as in progress with bronchodilators, oxygen supplementation, and use of the BiPAP therapy and Diamox. TIARA SIERRA MD CM:PNTRANS [phone] [id number] TIARA KILLIAN MD 04/01/18 2100 interface
--- NOTE | ~2018-03-28 | PR ---
[place], [place] PROGRESS NOTE NAME: NICHOLE DISLA UNIT #: [id number] ROOM: 401 DOCTOR: PHI REID DPM BIRTHDATE: [birth year] CM:PNTRANS 1 0 PHI REID DPM 04/03/18 1145 interface
--- NOTE | ~2018-03-28 | PR ---
[place], [place] PROGRESS NOTE [id number] UN[facility] #: [id number] ROOM: 401 DOCTOR: RIGO KILLIAN MDTIARA BIRTHDATE: [birth year] DOS: 04/03/2018 PULMONARY PROGRESS NOTE SUBJECTIVE: The patient was seen and examined on 04/03/2018, was noted comfortable using the BiPAP. He stated that he can use the BiPAP now, full face mask, was noted initial difficulty for the first few days. He has used the BiPAP for the last few hours at night. This morning using oxygen supplementation by nasal cannula. He denies symptoms of chest pain, coughing, or sputum expectoration. He denies any pain of the lower extremity. He denies symptoms of nausea, vomiting, diarrhea, abdominal pain, hematemesis, melena, or hematochezia. General weakness noted, which has been gradually resolving. Remaining systems were reviewed and they were noted all negative. OBJECTIVE: VITAL SIGNS: Normal temperature, respiratory rate is 18, heart rate is 80, and blood pressure is 106/60. Pulse oxygen saturation noted on 4 liters nasal cannula is 96% with the BiPAP as 93% saturation at 8 o'clock. HEENT: Head was atraumatic. Eyes nonicterus. NECK: Supple. CARDIOVASCULAR: S1, S2 is audible. LUNGS: Noted generally decreased breath sounds with gradual improvement in air entry noted. Occasional wheezing. No crackles. ABDOMEN: Soft, nontender. Bowel sounds present. EXTREMITIES: No edema. VISIBLE SKIN: No lesions or rashes. MUSCULOSKELETAL: Without any acute deformity. CENTRAL NERVOUS SYSTEM: Cranial nerves 2-12 intact. LABORATORY DATA: BMP today, glucose is 148, BUN is 58, and creatinine is normal. CO2 was noted as 37, continue to improve. Total protein of 5.7. The CBC of patient this morning: WBC count is normal, platelet count is mildly decreased at 113,000, and hemoglobin is 11.4. DIAGNOSTIC DATA: Ultrasound of the lower extremities, arterial duplex was done, noted all normal. IMPRESSION: 1. The patient with gradual improvement, continued to have acute on chronic hypercapnic hypoxic respiratory failure. 2. The patient with advanced chronic obstructive pulmonary disease. 3. Chronic cachexia as well as weight loss related to advanced chronic obstructive pulmonary disease would be considered. PLAN OF MANAGEMENT: Continuation of bronchodilators, oxygen supplementation, and the BiPAP use. The patient will benefit from noninvasive ventilator at home to improve his quality of life to treat the chronic hypercapnic respiratory failure and reduce hospitalizations. The patient will be agreeable to use the noninvasive ventilator at home as discussed in detail. The prescription will be [place], [place] PROGRESS NOTE NAME: NICHOLE DISLA UNIT #: [id number] ROOM: 401 DOCTOR: RIGO KILLIAN MD,TIARA BIRTHDATE: [birth year] sent to the [employer] for the authorization for the noninvasive ventilator. In the meantime, continue steroids, bronchodilator therapy, plan of management, care plan, usual care, supportive therapy, other plan of care, and treatments. TIARA SIERRA MD CM:PNTRANS [phone] TIARA KILLIAN MD 04/04/18 0003 interface
[~2018-03-28 09:50] MED LIST changes: +EXELON13.3 MG/21 T; +QUETIAPINE FUMA25 MG PO; +QUETIAPINE FUMA50 M1 PO; +TRAZODONE150 MG PO
[2018-03-28 09:51] VITALS: BP 102/52
[2018-03-28 10:10] LABS: HEMOGLOBIN 11.5 g/dl (14.0-18.0); MEAN CELL VOLUME 111.4 fl (80.0-94.0); MEAN CORPUSCULAR HGB 29.8 pg (27.0-31.0); MEAN CORPUSCULAR HGB CONC 26.7 g/dl (33.0-37.0); MEAN PLATELET VOLUME 9.4 fl (9.6-12.3); PLATELET COUNT AUTOMATED 108 10*3/uL (130-400); RED BLOOD COUNT 3.86 10*6/uL (4.50-5.90); RED CELL DISTRI WIDTH 13.3 % (0-14.5); WHITE BLOOD COUNT 5.5 10*3/uL (4.8-10.8)
[2018-03-28 10:20] LABS: ACT PARTIAL THROMBO TIME 25.4 SECONDS (20.8-31.5)
[2018-03-28 10:28] LABS: ATYPICAL LYMPHS 1 % (0-0); TOTAL CELLS COUNTED 100 #CELLS
[2018-03-28 10:29] LABS: ALBUMIN 3.3 gm/dl (3.1-4.5); ALKALINE PHOSPHATASE 55 U/L (45-117); BUN 12 mg/dl (7-24); CHLORIDE 94 mmol/L (98-107); LIPASE 254 U/L (73-393); PLATELET SUFFICIENCY LOW (NORMAL); POTASSIUM 4.8 mmol/L (3.5-5.1); SGOT/AST 10 IU/L (3-35); SGPT/ALT 12 U/L (12-78); SODIUM 143 mmol/L (136-145); STOMATOCYTE MODERATE; TOTAL PROTEIN 6.7 gm/dL (6.4-8.2)
[2018-03-28 10:33] LABS: TROPONIN I < 0.015 ng/ml (<0.045)
[2018-03-28 12:11] VITALS: BP 113/65
[2018-03-28 13:50] LABS: ABG BASE EXCESS 17.4 mmol/L (-2.0-2.0); ABG HCO3 47.7 mmol/l (22-26); ABG O2 SATURATION 87.2 % (95-97); ARTERIAL BLOOD GAS PH 7.298 (7.35-7.45); ARTERIAL BLOOD GAS PO2 46.8 mmHg (80-90)
[2018-03-28 14:32] VITALS: BP 109/62
[2018-03-28] MEDS ORDERED: LISINOPRIL30 MG PO (14:51)
[2018-03-28] MEDS ORDERED: FUROSEMIDE20 M1 PO (14:53)
[2018-03-28] MEDS ORDERED: AMLODIPINE BESYL5 MG PO (15:27)
[2018-03-28 16:57] LABS: ABG BASE EXCESS 18.7 mmol/L (-2.0-2.0); ABG HCO3 49.4 mmol/l (22-26); ABG O2 SATURATION 96.4 % (95-97); ARTERIAL BLOOD GAS PH 7.273 (7.35-7.45)
[2018-03-28 20:00] VITALS: BP 114/66
[2018-03-29] VITALS: BP 122/70
[2018-03-29 04:00] VITALS: BP 124/70
[2018-03-29 05:59] LABS: HEMATOCRIT 37.2 % (42.0-52.0); HEMOGLOBIN 10.2 g/dl (14.0-18.0); LYMPH # 0.8 10*3/uL (1.3-4.4); LYMPH % 15.8 % (27.0-41.0); MEAN CORPUSCULAR HGB 29.3 pg (27.0-31.0); MEAN CORPUSCULAR HGB CONC 27.4 g/dl (33.0-37.0); MEAN PLATELET VOLUME 10.3 fl (9.6-12.3); MONO # 0.3 10*3/uL (0.1-1.0); NEUT # 4.1 10*3/uL (2.3-7.9); NEUT % 78.8 % (47.0-73.0); PLATELET COUNT AUTOMATED 112 10*3/uL (130-400); RED BLOOD COUNT 3.48 10*6/uL (4.50-5.90); RED CELL DISTRI WIDTH 13.1 % (0-14.5); WHITE BLOOD COUNT 5.2 10*3/uL (4.8-10.8)
[2018-03-29 06:02] LABS: MEAN CELL VOLUME 106.9 fl (80.0-94.0)
[2018-03-29 06:03] LABS: BUN 21 mg/dl (7-24); CHLORIDE 93 mmol/L (98-107); PHOSPHOROUS 3.3 mg/dL (2.5-4.9); POTASSIUM 5.3 mmol/L (3.5-5.1); SODIUM 145 mmol/L (136-145)
[2018-03-29 08:00] VITALS: BP 130/82
[2018-03-29 08:03] LABS: ABG BASE EXCESS 18.8 mmol/L (-2.0-2.0); ABG HCO3 49.7 mmol/l (22-26); ABG O2 SATURATION 65.6 % (95-97); ARTERIAL BLOOD GAS PH 7.264 (7.35-7.45)
[2018-03-29 08:08] LABS: ARTERIAL BLOOD GAS PO2 37.6 mmHg (80-90)
[2018-03-29 08:30] LABS: ABG BASE EXCESS 18.1 mmol/L (-2.0-2.0); ABG HCO3 48.4 mmol/l (22-26); ABG O2 SATURATION 93.8 % (95-97); ARTERIAL BLOOD GAS PH 7.284 (7.35-7.45); ARTERIAL BLOOD GAS PO2 71.1 mmHg (80-90)
[2018-03-29 12:00] VITALS: BP 130/80
[2018-03-29 16:00] VITALS: BP 126/80
[2018-03-29 20:00] VITALS: BP 127/73
[2018-03-30] VITALS: BP 130/60
[2018-03-30 04:00] VITALS: BP 128/72
[2018-03-30 05:13] LABS: BASO % 0.1 % (0.0-1.0); HEMATOCRIT 36.3 % (42.0-52.0); HEMOGLOBIN 10.5 g/dl (14.0-18.0); LYMPH # 1.2 10*3/uL (1.3-4.4); LYMPH % 14.2 % (27.0-41.0); MEAN CELL VOLUME 104.3 fl (80.0-94.0); MEAN CORPUSCULAR HGB 30.2 pg (27.0-31.0); MEAN CORPUSCULAR HGB CONC 28.9 g/dl (33.0-37.0); MONO # 0.6 10*3/uL (0.1-1.0); MONO % 7.1 % (3.0-9.0); NEUT # 6.5 10*3/uL (2.3-7.9); NEUT % 78.2 % (47.0-73.0); PLATELET COUNT AUTOMATED 112 10*3/uL (130-400); RED BLOOD COUNT 3.48 10*6/uL (4.50-5.90); RED CELL DISTRI WIDTH 13.2 % (0-14.5); WHITE BLOOD COUNT 8.3 10*3/uL (4.8-10.8)
[2018-03-30 05:28] LABS: ALKALINE PHOSPHATASE 43 U/L (45-117); BUN 25 mg/dl (7-24); CHLORIDE 96 mmol/L (98-107); CREATININE 0.77 mg/dL (0.70-1.30); POTASSIUM 4.9 mmol/L (3.5-5.1); SGOT/AST 10 IU/L (3-35); SGPT/ALT 10 U/L (12-78); SODIUM 141 mmol/L (136-145); TOTAL PROTEIN 6.2 gm/dL (6.4-8.2)
[2018-03-30 05:51] LABS: ABG BASE EXCESS 12.4 mmol/L (-2.0-2.0); ABG HCO3 42.1 mmol/l (22-26); ABG O2 SATURATION 88.2 % (95-97); ARTERIAL BLOOD GAS PH 7.271 (7.35-7.45); ARTERIAL BLOOD GAS PO2 59.1 mmHg (80-90)
[2018-03-30 05:56] LABS: ARTERIAL BLOOD GAS PCO2 94.5 mmHg (35-45)
[2018-03-30 08:00] VITALS: BP 128/70
[2018-03-30 12:00] VITALS: BP 136/64
[2018-03-30 16:00] VITALS: BP 119/73
[2018-03-30 20:00] VITALS: BP 134/76
[2018-03-31] VITALS: BP 120/79
[2018-03-31 07:42] LABS: BASO % 0.1 % (0.0-1.0); LYMPH # 1.6 10*3/uL (1.3-4.4); LYMPH % 18.2 % (27.0-41.0); MEAN CELL VOLUME 101.6 fl (80.0-94.0); MEAN CORPUSCULAR HGB 29.4 pg (27.0-31.0); MEAN PLATELET VOLUME 10.4 fl (9.6-12.3); MONO # 0.8 10*3/uL (0.1-1.0); MONO % 8.8 % (3.0-9.0); NEUT # 6.5 10*3/uL (2.3-7.9); NEUT % 72.6 % (47.0-73.0); RED BLOOD COUNT 4.35 10*6/uL (4.50-5.90); RED CELL DISTRI WIDTH 13.1 % (0-14.5)
[2018-03-31 07:48] LABS: ALBUMIN 3.6 gm/dl (3.1-4.5); ALKALINE PHOSPHATASE 52 U/L (45-117); BUN 32 mg/dl (7-24); CHLORIDE 95 mmol/L (98-107); CREATININE 0.85 mg/dL (0.70-1.30); POTASSIUM 4.4 mmol/L (3.5-5.1); SGOT/AST 10 IU/L (3-35); SGPT/ALT 14 U/L (12-78); SODIUM 141 mmol/L (136-145); TOTAL PROTEIN 7.4 gm/dL (6.4-8.2)
[2018-03-31 07:51] LABS: HEMATOCRIT 44.2 % (42.0-52.0)
[2018-03-31 07:52] LABS: HEMOGLOBIN 12.8 g/dl (14.0-18.0); PLATELET COUNT AUTOMATED 171 10*3/uL (130-400)
[2018-03-31 08:00] VITALS: BP 136/78
[2018-03-31 10:43] LABS: ABG BASE EXCESS 9.5 mmol/L (-2.0-2.0); ABG HCO3 40.5 mmol/l (22-26); ABG O2 SATURATION 92.3 % (95-97); ARTERIAL BLOOD GAS PH 7.222 (7.35-7.45); ARTERIAL BLOOD GAS PO2 73.9 mmHg (80-90)
[2018-03-31 12:00] VITALS: BP 109/67
[2018-03-31 16:00] VITALS: BP 112/64
[2018-03-31 20:00] VITALS: BP 112/68
[2018-04-01] VITALS: BP 109/66
[2018-04-01 06:53] LABS: CHLORIDE 97 mmol/L (98-107); CREATININE 1.04 mg/dL (0.70-1.30); POTASSIUM 4.7 mmol/L (3.5-5.1); SGOT/AST 6 IU/L (3-35); SGPT/ALT 11 U/L (12-78); SODIUM 141 mmol/L (136-145)
[2018-04-01 06:55] LABS: ALKALINE PHOSPHATASE 41 U/L (45-117); TOTAL PROTEIN 5.9 gm/dL (6.4-8.2)
[2018-04-01 06:59] LABS: BUN 47 mg/dl (7-24)
[2018-04-01 08:00] VITALS: BP 113/66
[2018-04-01 12:00] VITALS: BP 90/58
[2018-04-01 16:00] VITALS: BP 100/56
[2018-04-01 20:00] VITALS: BP 113/66
[2018-04-02] VITALS: BP 103/67
[2018-04-02 06:31] LABS: ALBUMIN 2.7 gm/dl (3.1-4.5); CHLORIDE 100 mmol/L (98-107); CREATININE 1.32 mg/dL (0.70-1.30); POTASSIUM 4.9 mmol/L (3.5-5.1); SGPT/ALT 10 U/L (12-78); SODIUM 144 mmol/L (136-145); TOTAL PROTEIN 5.6 gm/dL (6.4-8.2)
[2018-04-02 06:33] LABS: ALKALINE PHOSPHATASE 35 U/L (45-117)
[2018-04-02 06:47] LABS: BUN 60 mg/dl (7-24); SGOT/AST < 3 IU/L (3-35)
[2018-04-02 08:00] VITALS: BP 104/58
[2018-04-02 12:00] VITALS: BP 108/55
[2018-04-02 16:00] VITALS: BP 95/54
[2018-04-02 20:00] VITALS: BP 128/63
[2018-04-03] VITALS: BP 101/58
[2018-04-03 06:56] LABS: HEMATOCRIT 41.6 % (42.0-52.0); HEMOGLOBIN 11.4 g/dl (14.0-18.0); LYMPH # 1.3 10*3/uL (1.3-4.4); LYMPH % 20.1 % (27.0-41.0); MEAN CELL VOLUME 106.1 fl (80.0-94.0); MEAN CORPUSCULAR HGB 29.1 pg (27.0-31.0); MEAN CORPUSCULAR HGB CONC 27.4 g/dl (33.0-37.0); MEAN PLATELET VOLUME 10.6 fl (9.6-12.3); MONO # 0.7 10*3/uL (0.1-1.0); MONO % 10.1 % (3.0-9.0); NEUT # 4.5 10*3/uL (2.3-7.9); NEUT % 69.5 % (47.0-73.0); PLATELET COUNT AUTOMATED 113 10*3/uL (130-400); RED BLOOD COUNT 3.92 10*6/uL (4.50-5.90); RED CELL DISTRI WIDTH 13.2 % (0-14.5); WHITE BLOOD COUNT 6.5 10*3/uL (4.8-10.8)
[2018-04-03 07:14] LABS: ALBUMIN 2.8 gm/dl (3.1-4.5); BUN 58 mg/dl (7-24); CHLORIDE 102 mmol/L (98-107); POTASSIUM 4.6 mmol/L (3.5-5.1); SODIUM 146 mmol/L (136-145)
[2018-04-03 07:18] LABS: ALKALINE PHOSPHATASE 41 U/L (45-117); CREATININE 1.08 mg/dL (0.70-1.30); SGOT/AST 4 IU/L (3-35); SGPT/ALT 11 U/L (12-78); TOTAL PROTEIN 5.7 gm/dL (6.4-8.2)
[2018-04-03 08:00] VITALS: BP 106/60
[2018-04-03 13:00] VITALS: BP 104/54
[2018-04-03] MEDS ORDERED: LEVAQUIN500 M2 PO (14:03)
[2018-04-03] MEDS ORDERED: PREDNISONE10 MG PO (14:03)
[2018-04-03] MEDS ORDERED: GERI-HYDROLAC222 ML T (14:03)
== END 2018-04-03 16:26 | disposition home or self-care (01) | DRG 193 ==
LOC: ED 09:50 → ICCU 11:18 → 4E 11:18 → ICCU 14:20 → 4E 03-30 16:43
PROVIDERS: Emergency Medicine; Family Medicine; Internal Medicine; Internal Medicine Critical Care Medicine
PROC: 5A09357 Assistance with Respiratory Ventilation, Less than 24 Consecutive Hours, Continuous Positive Airway Pressure (ICD-10-PCS; principal; 2018-03-28)
PROC: 5A09357 Assistance with Respiratory Ventilation, Less than 24 Consecutive Hours, Continuous Positive Airway Pressure (ICD-10-PCS; 2018-03-29)
PROC: 5A09357 Assistance with Respiratory Ventilation, Less than 24 Consecutive Hours, Continuous Positive Airway Pressure (ICD-10-PCS; 2018-03-30)
PROC: 5A09357 Assistance with Respiratory Ventilation, Less than 24 Consecutive Hours, Continuous Positive Airway Pressure (ICD-10-PCS; 2018-03-31)
PROC: 0HBRXZZ Excision of Toe Nail, External Approach (ICD-10-PCS; 2018-04-01)
PROC: 5A09357 Assistance with Respiratory Ventilation, Less than 24 Consecutive Hours, Continuous Positive Airway Pressure (ICD-10-PCS; 2018-04-01)
PROC: 5A09357 Assistance with Respiratory Ventilation, Less than 24 Consecutive Hours, Continuous Positive Airway Pressure (ICD-10-PCS; 2018-04-02)
PROC: 5A09357 Assistance with Respiratory Ventilation, Less than 24 Consecutive Hours, Continuous Positive Airway Pressure (ICD-10-PCS; 2018-04-03)
DX: J18.9 Pneumonia, unspecified organism (principal); J96.21 Acute and chronic respiratory failure with hypoxia; J96.22 Acute and chronic respiratory failure with hypercapnia; N17.0 Acute kidney failure with tubular necrosis; E87.3 Alkalosis; J44.1 Chronic obstructive pulmonary disease with (acute) exacerbation; E44.0 Moderate protein-calorie malnutrition; I50.32 Chronic diastolic (congestive) heart failure; F33.9 Major depressive disorder, recurrent, unspecified; J44.0 Chronic obstructive pulmonary disease with (acute) lower respiratory infection; E87.2 Acidosis; Z66 Do not resuscitate; D53.9 Nutritional anemia, unspecified; E87.8 Other disorders of electrolyte and fluid balance, not elsewhere classified; I71.4 Abdominal aortic aneurysm, without rupture; E78.2 Mixed hyperlipidemia; F02.80 Dementia in other diseases classified elsewhere, unspecified severity, without behavioral disturbance, psychotic disturbance, mood disturbance, and anxiety; R62.7 Adult failure to thrive; G30.1 Alzheimer's disease with late onset; D69.6 Thrombocytopenia, unspecified; E83.41 Hypermagnesemia; E11.65 Type 2 diabetes mellitus with hyperglycemia; F17.210 Nicotine dependence, cigarettes, uncomplicated; I11.0 Hypertensive heart disease with heart failure; Z51.5 Encounter for palliative care; B35.1 Tinea unguium; Z80.9 Family history of malignant neoplasm, unspecified; Z88.4 Allergy status to anesthetic agent; Z79.899 Other long term (current) drug therapy; Z71.6 Tobacco abuse counseling; Z99.81 Dependence on supplemental oxygen; Z79.82 Long term (current) use of aspirin; Z68.24 Body mass index [BMI] 24.0-24.9, adult

== ENCOUNTER 2018-05-16 13:29 | Inpatient (IN) | payer MEDICARE, OTHER ==
[2018-05-16] VITALS (17 sets, daily range): BP systolic 70–140; BP diastolic 38–91
[~2018-05-16] VITALS: Ht 188 cm; Wt 82.0 kg
--- NOTE | ~2018-05-16 | CON ---
[place], [place] REPORT OF CONSULTATION NAME: NICHOLE DISLA UNIT #: [id number] ROOM: [facility] DOCTOR: RIGO KILLIAN MD,TIARA BIRTHDATE: [birth year] DOS: 05/17/2018 REASON FOR CONSULTATION: The patient with acute respiratory failure, exacerbation of chronic obstructive pulmonary disease. HISTORY OF PRESENT ILLNESS: This is a 73-year-old white male, past history of chronic end-stage COPD with chronic hypoxic respiratory failure, hypercapnia. He was brought to the hospital by the ambulance. The patient noted acute respiratory arrest at home. The patient has been intubated and started on mechanical ventilation. The patient was noted significant modest outpatient by the EMS prior to getting him intubated. The patient was admitted to the intensive care for further medical management. He has been currently conscious sedation was noted vocal commands. The patient was continued on mechanical ventilation yesterday for the medical and acute exacerbation of COPD. He has been noted without any hemodynamic, was also noted to have hypertension. The patient required the use of and other intervention, hypotension, which was improved later. He has not been noted with any symptoms of chest pain or hemoptysis reported. REVIEW OF SYSTEMS: Certainly could not be performed. The patient currently intubated, noted on mechanical ventilation. Arterial blood gas that was done yesterday emerges patient 4%, pH of 7.3, pCO2 of the CMP of 179 noted assist control, volume control, mechanical ventilation, 50% oxygen. PAST MEDICAL HISTORY: 1. The patient known with history of end-stage COPD and acute chronic hypoxic respiratory failure, use of oxygen supplementation 4 liters nasal cannula. 2. Chronic hypercapnic respiratory failure as well. 3. Frequent hospitalization for exacerbation of COPD as well. 4. Vitamin D deficiency. 5. Past history of pulmonary tuberculosis in 1989, that has been treated and noted an active. PAST SURGICAL HISTORY: Noted none significant. SOCIAL HISTORY: The patient is , lives at home. There has been no history of alcohol use intermittently in the past as well. He has been known with history of tobacco use, started teenager pack of cigarettes per day and it reduced the tobacco use, patient is not sure if he is still smoking some cigarettes or not. He has been also exposed to Agent [place] during [place] war. FAMILY HISTORY: Noted unknown. MEDICATIONS: The current medication administered noted use IV propofol. Use of Versed, intravenous Rocephin, Zithromax, DuoNeb 4 hours, Solu-Medrol, IV Protonix and Peridex rinse. ALLERGIES: ALLERGIES TO THE NOVOCAIN. PHYSICAL EXAMINATION: [place], [place] REPORT OF CONSULTATION NAME: NICHOLE DISLA UNIT #: [id number] ROOM: [facility] DOCTOR: IRGO KILLIAN MD,TIARA BIRTHDATE: [birth year] GENERAL: This is a 73-year-old patient to some extent, but still getting sedation. The height was noted 6 foot 2 inches, weight of 180 pounds, BMI 23. VITAL SIGNS: For the patient which has been recorded showed the temperature noted as rectal temperature 101.4 degree Fahrenheit to normal temperature. The patient noted previously, respiratory rate between 21, 22. Height 74-88, blood pressure 70/38 on admission, later improved to 127/77. Intake for the patient recorded as 2.2 liters, the output 12 and 90 mL. The pulse oxygen saturation on 40% oxygen mechanical ventilation 94% saturation. HEAD, EYES, EARS, NOSE, AND THROAT: Head was atraumatic. Eyes: No icterus. NECK: Supple. CARDIOVASCULAR: S1, S2 audible. LUNGS: Noted general reduction of breath sounds bilaterally. Expiratory wheezing. There were no crackles. ABDOMEN: Soft, flat, nontender. Bowel sounds present. EXTREMITIES: Chronic loss of muscle mass. GENITOURINARY: No edema. SKIN: Scattered bruising, skin most medication related. CENTRAL NERVOUS SYSTEM: The patient's mental status. The patient appeared to be normal for this patient, limited assessment further examination could not be performed at this time. LABORATORY AND DIAGNOSTIC DATA: Arterial blood gas yesterday pH of 7.33, pCO2 of 87, pO2 of 179. Arterial blood gas this morning was noted respiratory alkalosis, pH of 7.58. The patient 45, pO2 of 85 40% oxygen supplementation. The CBC of that was done this morning, WBC count 5.2, hemoglobin 11, hematocrit 42.6, platelet count 107,000. CMP that was done yesterday, glucose 174, BUN and creatinine were normal. The CO2 of 51, chloride of 94. Potassium mildly elevated to 5.6. CBC of the patient yesterday, WBC count normal, hemoglobin 10.2, platelet count was 126,000, which were repeated later. Another arterial blood gas yesterday pH of 7.45, pCO2 of 65, pO2 of 51, ____ venous gas. The endotracheal aspirate, Gram stain of yesterday. White blood cells, moderate epithelial cells, few gram-positive cocci in pairs and chains, clusters with the gram-positive bacilli, few of them and rare gram-negative bacilli. Culture normal claritza, final culture results were pending. Lactic acid was noted yesterday 1.5 that was normal. The CMP that was done this morning, glucose 160, BUN 27, creatinine was normal. CO2 was decreased to 40. Potassium was noted normal. Calcium was 8.2, phos were noted severely decreased at 0.9. Albumin of 2.6. The CBC this morning: WBC count of 7.1, hemoglobin 9.5, hematocrit 34.8, platelet count 107,000. Chest x-ray shows hyperinflation changes of chronic obstructive pulmonary disease. Endotracheal tube in appropriate position, multi-lumen catheter noted in place with the patient as well in the right IJ. Small scattered areas of basilar atelectasis, had a CT of the chest that was completed as was also reviewed, does not show any evidence of pulmonary embolism. The parenchymal view for was noted with evidence of diffuse panlobular emphysema changes were noted. Small area of scarring noted with a small area of right lower lobe infiltration. The patient was also suspected versus atelectasis. There was no lymphadenopathy. 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 IMPRESSION: 1. The patient will be currently admitted to the hospital noted with severe acute hypercapnic and hypoxic respiratory failure. 2. Acute severe exacerbation of chronic obstructive pulmonary disease. 3. Possible atelectasis. Left lower lobe versus pneumonia from aspiration would be considered with gram-positive and gram-negative organism. With the recent hospitalization as well. 4. The patient with a hypophosphatemia with ____ syndrome would be considered as well. The patient is a high risk because advanced chronic obstructive pulmonary disease. 5. The patient with mild hyperglycemia as well. 6. Mild hyperkalemia from yesterday, which was resolved. 7. Severe metabolic alkalosis noted with chronic hypercarbia and acute iatrogenic respiratory alkalosis. PLAN: The patient will be continued on current dose of Solu-Medrol. Aggressive supplementation will be given, monitoring the ____feeding would be given. Bronchodilators. Ventilator bundle management. Adjustment in mechanical ventilator was done improve the respiratory alkalosis. Tidal volume has been decreased suggesting of the tidal volume as well. He will be kept at the same. The plateau pressure noted about 11. Continue ____ was ordered as well. Other supportive therapy, plan and management. Additional change in treatment will be ordered. The patient according to the further progression of the illness. Total time in pulmonary management for the patient is 40 minutes. TIARA SIERRA MD CM:CONSTR:REPORT OF CONSULTATION 1309 05/17/18 9997 interface
--- NOTE | ~2018-05-16 | PR ---
[place], [place] PROGRESS NOTE NAME: NICHOLE DISLA UNIT #: [id number] ROOM: 410 DOCTOR: MARI DOWLING BIRTHDATE: [birth year] DOS: 05/22/2018 PULMONARY PROGRESS NOTE SUBJECTIVE: The patient is noted sitting comfortably at this time at his bed without any signs of acute distress. The patient denies symptoms of fevers, chills, chest pain or coughing at this time. OBJECTIVE: VITAL SIGNS: Temperature normal, respiratory rate 20, heart rate 96, blood pressure 120/76, pulse oxygen saturation on 4 liters nasal cannula 96% saturation. HEENT: Head was atraumatic. Eyes nonicterus. NECK: Supple. CARDIOVASCULAR: S1, S2 audible. LUNGS: Without any wheezes or crackles. ABDOMEN: Soft, nontender. EXTREMITIES: Without any acute edema. ASSESSMENT: 1. Resolving acute chronic hypercapnic hypoxic respiratory failure. 2. Continued resolution and improvement of metabolic alkalosis. 3. Change in mental status intermittently secondary to hypercapnia. PLAN OF MANAGEMENT: No change in current management from a pulmonary standpoint. At this time, continue bronchodilators and gradual reduction of steroids. Continue also current supportive care, [facility] MARI DOWLING, TIARA SIERRA MD CM:JULIO CÉSAR [id number] MARI DOWLING 05/23/18 0836 interface
--- NOTE | ~2018-05-16 | EKG ---
[place], [place] ELECTROCARDIOGRAM REPORT NAME: NICHOLE DISLA UNIT #: [id number] ROOM: [facility] DOCTOR: TERESE DRAFT REPORT BIRTHDATE: [birth year] [facility] Test Date: 2018-05-16 Test Time: 13:48:14 Pat Name: NICHOLE DISLA Department: Room: [facility] Gender: M Exhibit Electrician: DARYN : 1945 Requested By: HARRISON PRINCE Order Number: [id number] Reading MD: Luis Miguel Buck MD Measurements Intervals [place] Rate: 91 P: [facility]: QRS: 89 QRSD: 103 T: 69 QT: 382 QTc: 471 Interpretive Statements Normal sinus rhythm Borderline right axis deviation Minimal ST elevation, anterior leads Compared to ECG 03/28/2018 10:10:58 Atrial premature complex(es) no longer present Electronically Signed On 05-16-2018 19:42:11 PST by Luis Miguel Buck MD CM:EKGRPT:ELECTROCARDIOGRAM REPORT [id number] 41 HARRISON ROYAL DRAFT REPORT HARRISON PRINCE DO
--- NOTE | ~2018-05-16 | PR ---
[place], [place] PROGRESS NOTE NAME: NICHOLE DISLA UNIT #: [id number] ROOM: 410 DOCTOR: RIGO KILLIAN MD,TIARA BIRTHDATE: [birth year] DOS: 05/22/2018 SUBJECTIVE: The patient was noted comfortable, still noted confusional status intermittently. Denies symptoms of fever or chills. Denies symptoms of nausea or vomiting. OBJECTIVE: VITAL SIGNS: Normal temperature, respiratory rate 20, heart rate of 96, blood pressure 120/70. The pulse oxygen saturation was noted as 96% saturation. BiPAP 18/10, 40% oxygen. HEAD, EYES, EARS, NOSE, AND THROAT: Examination shows head was atraumatic. Eyes nonicterus. NECK: Supple. CARDIOVASCULAR SYSTEM: S1, S2 is audible. LUNGS: Noted without any wheeze or crackles. ABDOMEN: Soft, nontender. Bowel sounds present. EXTREMITIES: Without any acute edema. IMPRESSION: Resolving acute on chronic hypercapnic hypoxic respiratory failure, acute tracheobronchitis or debility confusional status ____ hypercarbia and other etiologies. PLAN OF MANAGEMENT: No change in plan of management at this time. Continue current therapy, plan of treatment. Monitor for any confusion. Continue the BiPAP at nighttime intermittently during the day as needed. Arrangement BiPAP minimum and [facility], social insurance analyst started that process. Other plan of management care to be continued as well. TIARA SIERRA MD CM:PNTRANS [id number] TIARA KILLIAN MD 05/22/18 1222 interface
--- NOTE | ~2018-05-16 | PR ---
[place], [place] PROGRESS NOTE NAME: NICHOLE DISLA UNIT #: [id number] ROOM: 410 DOCTOR: RIGO KILLIAN MD,TIARA BIRTHDATE: [birth year] DOS: 05/23/2018 PULMONARY PROGRESS NOTE SUBJECTIVE: The patient was noted comfortable at this time, using the BiPAP. The patient at this time noted with less confusional status this morning and hallucination, which are reported by the patient previously in the last 2 days. Denies symptoms of chest pain. Denies symptoms of coughing. Shortness of breath, resolving. OBJECTIVE: VITAL SIGNS: Normal temperature, respiratory rate 15, heart rate 72, blood pressure 128/73. The pulse oxygen saturation recorded on 4 liters nasal cannula 97% saturation and the BiPAP 97% saturation. HEENT: No acute change. NECK: Supple. CARDIOVASCULAR: S1, S2 is audible. LUNGS: With moderate decreased breath sounds, no wheezing or crackles. ABDOMEN: Soft, nontender. EXTREMITIES: No acute edema. IMPRESSION: The patient with gradual improvement and resolution of acute on chronic hypercapnic hypoxic respiratory failure, resolved tracheobronchitis. Improving acute exacerbation of chronic obstructive pulmonary disease. PLAN OF MANAGEMENT: Continue the BiPAP, oxygen supplementation. The request for BiPAP had been submitted and he may be provided with the BiPAP next week. In the meantime, continue to maximize the medical management and other care. Usual care. TIARA SIERRA MD CM:PNTRANS [phone] TIARA KILLIAN MD 05/24/18 0127 interface
--- NOTE | ~2018-05-16 | PROC NOTE ---
[place], [place] PROCEDURE NOTE NAME: NICHOLE IDSLA UNIT #: [id number] ROOM: [facility] DOCTOR: RIGO KILLIAN MD,TIARA BIRTHDATE: [birth year] DOS: 05/19/2018 FIBEROPTIC BRONCHOSCOPY PREOPERATIVE DIAGNOSES: The patient with acute respiratory failure with exacerbation of chronic obstructive pulmonary disease, excessive secretion production, which were noted very thick and mucoid. PROCEDURE DESCRIPTION: Informed consent obtained from the patient and family members. The bronchoscope advanced to the endotracheal tube lower part of trachea as a video bronchoscope in the negative pressure room. The lower part of the trachea noted with moderate amount of thick mucus secretion, which was suctioned out. Rosalba noted sharp. Right upper, right middle, right lower, left upper, lingular lower bronchi were all examined. Moderate thick plaques of the mucus of the patient present in endobronchial tree, almost all the subsegments bilaterally cleared out with the help of normal saline wash. Procedure was well tolerated by the patient without complications. The bronchial washing sent for appropriate culture. TIARA SIERRA MD CM:PROCNOTE:PROCEDURE NOTE 1202 0019 TIARA KILLIAN MD
--- NOTE | ~2018-05-16 | CON ---
[place], [place] REPORT OF CONSULTATION NAME: NICHOLE DISLA UNIT #: [id number] ROOM: [facility] DOCTOR: SHANON GOMEZ MD BIRTHDATE: [birth year] DOS: 05/16/2018 HISTORY OF PRESENT ILLNESS: This is a 73-year-old patient who presented with respiratory insufficiency to Emergency Room. The patient had to be intubated for CO2 retention and metabolic acidosis. The patient with respiratory insufficiency, hypoxemic. He had to be transferred to ICU. Meanwhile, the staff noticed that he has mucousy blood-tinged liquid discharge from his rectum. PAST MEDICAL HISTORY: Hypertension, COPD, diabetes mellitus, hyperlipidemia, and abdominal aortic aneurysm. PAST SURGICAL HISTORY: No surgical history. SOCIAL HISTORY: Smoker and nonalcohol consumer. FAMILY HISTORY: Noncontributory. ALLERGIES: PROCAINE. MEDICATIONS: List has been reviewed, has been aspirin of 81 mg in addition to others that reviewed. REVIEW OF SYSTEMS: Cannot be obtained from the patient due to the intubation status. PHYSICAL EXAMINATION: GENERAL: Reveals hypotensive, which has just arrived to ICU, he is undergoing stabilization. HEAD, EYES, EARS, NOSE, AND THROAT: ____. LUNGS: Scattered rhonchi anteroposteriorly with few scattered wheezes. HEART: Normal sinus rhythm, no gallop, no murmur. ABDOMEN: Soft. No hepato-organomegaly. Bowel sounds present. RECTAL: deferred ____ that are soiled with mucousy red blood, no clots. NEUROLOGIC: Sedated, unresponsive, on respirator. LABORATORY AND DIAGNOSTIC DATA: Labs reviewed. Records reviewed. His chest x-ray confirms corrected endotracheal tube positioning. His white blood cell remains 5, H of 11 and 42, platelet count 107. His BUN and creatinine 23 and 0.88. Lactic acid 2.6. IMPRESSION AND PLAN: Ruling out ischemic colitis. Otherwise, respiratory insufficiency, status post intubation. Otherwise, as dictated in paragraph of past medical and surgical history. We are going to keep him on PPI due to the intubation status in ICU residents as well. We are going to organize a CTA of the abdomen and pelvis in addition to CTA of the chest that has already been ordered. We are going to hydrate the patient with at least a liter of normal saline prior to CTA investigation. Follow up on CBC concern about white blood cell elevation and follow up on lactic acid. Thank you very much indeed. [place], [place] REPORT OF CONSULTATION NAME: NICHOLE DISLA UNIT #: [id number] ROOM: [facility] DOCTOR: SHANON GOMEZ MD BIRTHDATE: [birth year] SHANON GOMEZ MD CM:CONSTR:REPORT OF CONSULTATION 1555 05/16/182024 interface
--- NOTE | ~2018-05-16 | PR ---
[place], [place] PROGRESS NOTE NAME: NICHOLE DISLA UNIT #: [id number] ROOM: 410 DOCTOR: JASON WOLF,SHANON BIRTHDATE: [birth year] DOS: ADDENDUM: His lower extremities are bandaged bilaterally. Apparently, he has chronic leg ulcerations and vascular insufficiency, most likely. He is telling me that he has been taking care of for the past 9 years. SHANON GOMEZ MD CM:PNTRANS [phone] SHANON GOMEZ MD 05/22/18 0557 interface
--- NOTE | ~2018-05-16 | PR ---
[place], [place] PROGRESS NOTE NAME: NICHOLE DISLA UNIT #: [id number] ROOM: 410 DOCTOR: MARI DOWLING BIRTHDATE: [birth year] DOS: 05/21/2018 PULMONARY PROGRESS NOTE SUBJECTIVE: The patient was noted sitting comfortably at his bed at this time without any signs of acute distress. The patient states he is breathing well with decreased shortness of breath and denies any symptoms of chest pain, fevers or chills as well as hemoptysis. OBJECTIVE: VITAL SIGNS: Normal temperature, respiratory rate 20, heart rate 89, blood pressure 133/86, pulse oxygen saturation on 4 liters nasal cannula 95% saturation. HEENT: Head is atraumatic. Eyes nonicterus. NECK: Supple. CARDIOVASCULAR: S1, S2 audible. LUNGS: Without crackles, clear throughout. ABDOMEN: Soft, nontender. EXTREMITIES: Without acute edema. IMPRESSION: Progressive improvement in acute on chronic hypercapnic hypoxic respiratory failure, resolution of metabolic alkalosis. PLAN OF MANAGEMENT: No current change in plan of management from a pulmonary standpoint. Continue bronchodilators and oxygen supplementation. Steroids are being gradually decreased. The patient is on a BiPAP at nighttime p.r.n. Further changes in management will be made depending on patient's changes in his clinical status. MARI DOWLING DO TIARA SIERRA MD CM:PNTRANS [phone] MARI DOWLING 05/22/18 0412 interface
--- NOTE | ~2018-05-16 | PR ---
[place], [place] PROGRESS NOTE NAME: NICHOLE DISLA UNIT #: [id number] ROOM: 411 DOCTOR: RIGO KILLIAN MD,TIARA BIRTHDATE: [birth year] DOS: 05/21/2018 PULMONARY PROGRESS NOTE SUBJECTIVE: The patient is noted comfortable at this time without any acute distress. He has been resting in the bed. He was not noted any symptoms of chest pain, fever or chills. Denies symptoms of coughing or sputum expectoration. OBJECTIVE: VITAL SIGNS: Normal temperature, respiratory rate 20, heart rate 89, blood pressure 130/86. Pulse oxygen saturation on 4 liters nasal cannula was 95% saturation. HEENT: Shows head was atraumatic, eyes nonicterus. NECK: Supple. CARDIOVASCULAR: S1 and S2 audible. LUNGS: Without any wheeze or crackles. ABDOMEN: Soft, nontender. Bowel sounds present. EXTREMITIES: Without any acute edema. LABORATORY DATA: CBC this morning with normal WBC count, platelet counts are noted mildly decreased at 106. IMPRESSION: 1. Resolving acute chronic hypercapnic hypoxic respiratory failure. 2. Continued resolution and improvement of metabolic alkalosis. 3. Change in mental status intermittently secondary to hypercapnia. PLAN OF MANAGEMENT: No changes from the pulmonary standpoint at this time for the medical management with use of BiPAP. Continuation of bronchodilators as previously ordered. Gradual reduction of steroids to be continued. Supportive care. TIARA SIERRA MD CM:PNTRANS [phone] TIARA KILLIAN MD 05/21/18 1257 interface
--- NOTE | ~2018-05-16 | PR ---
[place], [place] PROGRESS NOTE NAME: NICHOLE DISLA UNIT #: [id number] ROOM: 410 DOCTOR: MARI DOWLING BIRTHDATE: [birth year] DOS: 05/23/2018 PULMONARY PROGRESS NOTE SUBJECTIVE: The patient was noted sitting comfortably at his bed at this time without any signs of acute distress. The patient at times still appears to be slightly confused or disoriented. OBJECTIVE: VITAL SIGNS: Temperature normal, respiratory rate 15, heart rate 72, blood pressure 128/83, pulse oxygen saturation on 4 liters nasal cannula 97% saturation. HEENT: Head is atraumatic. Eyes, nonicterus. NECK: Supple. CARDIOVASCULAR: S1, S2 audible. LUNGS: No wheezes or crackles throughout. ABDOMEN: Soft, nontender. EXTREMITIES: Without any acute edema. ASSESSMENT: 1. Resolving acute on chronic hypercapnic hypoxic respiratory failure, acute tracheobronchitis. 2. Change in mental status intermittently secondary to hypercapnia. PLAN OF MANAGEMENT: No changes in current management from a pulmonary standpoint at this time. Continue bronchodilators, antibiotics and steroids. MARI DOWLING DO TIARA SIERRA MD CM:PNTRANS [phone] MARI DOWLING 05/24/18 0835 interface
--- NOTE | ~2018-05-16 | PR ---
[place], [place] PROGRESS NOTE NAME: NICHOLE DISLA UNIT #: [id number] ROOM: [facility] DOCTOR: RIGO KILLIAN MD,TIARA BIRTHDATE: [birth year] DOS: 05/19/2018 PULMONARY CRITICAL CARE EVALUATION AND MANAGEMENT SUBJECTIVE: The patient was seen today in Intensive Care Unit. He remains on mechanical ventilator. Bronchoscopy was completed today by me at the bedside without difficulty. He has ____ oxygen supplementation at 40% with assist control, volume control, mechanical ventilation, and tolerating the feeding very well. The patient has not been reported with any hemodynamic instability. Did not require vasopressors. He has been receiving intravenous Versed 5 mg q. 1 hour p.r.n. as well as low dose sedation. Mental status has been noted appropriate with reduction of sedation. OBJECTIVE: VITAL SIGNS: For the patient which were recorded showed normal temperature, respiratory rate range between 18-16. Heart rate of 85-84, blood pressure 131/78-117/66. Intake of 2.96 liters, the output 725 mL. The pulse oxygen saturation noted on 40% oxygen, 97% saturation. HEENT: Examination shows head was atraumatic. Eyes nonicterus. CARDIOVASCULAR: S1, S2 is audible. LUNGS: General reduction in the breath sounds bilaterally. There were no wheezing or crackles. ABDOMEN: Soft, nontender. Bowel sounds present. EXTREMITIES: Without edema. Loss of muscle mass. Muscular, without acute deformities. SKIN: Visible skin scattered area of bruising, medication related, old. Dry skin was also noted. LABORATORY DATA: CBC this morning, WBC count 10.9, hemoglobin 9.3, hematocrit 31.8, platelet count of 94,000, mildly further decreased from previous levels. BMP today: BUN 29, creatinine 0.61, glucose 169. CO2 of 39. Arterial blood gas this morning, assist control, volume control, respiratory rate of 8, tidal volume 400 mL, pH of 7.38, pCO2 of 68, and pO2 66.3. Blood culture, no bacterial growth on 05/17/2018. Phosphorus level was done this morning, which was normal. IMPRESSION: 1. The patient was noted with acute on chronic severe hypercapnic hypoxic respiratory failure. 2. Acute exacerbation of chronic obstructive pulmonary disease. 3. ____ related to refeeding syndrome. 4. History of past nicotine use as well. 5. Anemia of chronic disease. 6. Thrombocytopenia, most likely medications induced. Cultures of the bronchial washing have been noted, normal claritza. 7. Status post bronchoscopy today as well. PLAN OF MANAGEMENT: The patient was planned for liberation from mechanical ventilator today. He will be started on CPAP of 5, pressure support of 10 for a couple of hours. Dose of Solu-Medrol will be decreased to 40 mg daily dosing. [place], [place] PROGRESS NOTE NAME: NICHOLE DISLA UNIT #: [id number] ROOM: [facility] DOCTOR: RIGO KILLIAN MD,TIARA BIRTHDATE: [birth year] Continuation of bronchodilators administration and antibiotics. No changes need to be done. Monitor cultures of the current bronchoscopy. Ventilator bundle management will be continued as well. Other additional treatment changes will be made based on progression of the illness. There is high likelihood of the patient weaning today, will be liberated from mechanical ventilator. All the other previous treatment plan of management of the patient will be continued as well. Usual care. Supportive therapy, plan of treatment and other care. Additional treatment changes will be made based on the progression of the illness. Nutrition support to be continued. Pulmonary critical evaluation and management excluding any billable procedures is 37 minutes. TIARA SIERRA MD CM:PNTRANS [phone] TIARA KILLIAN MD 05/20/18 0154 interface
--- NOTE | ~2018-05-16 | PR ---
[place], [place] PROGRESS NOTE NAME: NICHOLE DISLA UNIT #: [id number] ROOM: [facility] DOCTOR: RIGO KILLIAN MD,TIARA BIRTHDATE: [birth year] DOS: 05/18/2018 SUBJECTIVE: The patient remains in Intensive Care Unit on the mechanical ventilator, correction of the respiratory alkalosis was noted without any blood gases done yesterday and reviewed this morning as well. The patient has not been noted any sick hemodynamic instability such as hypertension. The feeding has been tolerated. Supplementation of phosphorus was also continued. The patient has been noted with moderate amount of thick secretion, which has been suctioned out by the respiratory and the nursing staff. Low-grade fever was also noted. The mechanical ventilation continue. Mental status has been noted reduction of sedation. OBJECTIVE: VITAL SIGNS: Blood pressure 99/69 to 116/70, temperature 99.8 degrees Fahrenheit T-max, respiratory rate of 16-19, heart rate 84-96. HEAD, EYES, EARS, NOSE, AND THROAT: Head was atraumatic. Eyes nonicterus. NECK: Supple. CARDIOVASCULAR SYSTEM: S1, S2 is audible. LUNGS: Noted in reduction in breath sounds with expiratory wheezing. Scattered. ABDOMEN: Soft, nontender. Bowel sounds present. EXTREMITIES: Without any acute edema. MUSCULOSKELETAL: Without acute deformities. CENTRAL NERVOUS SYSTEM: Mental status appeared to be normal. The patient with reduction of sedation and sedation vacation. LABORATORY DATA: The culture of the endotracheal aspirate 05/16/2018 was noted no bacterial growth, final results. Arterial blood gas that was done this morning, pH of 7.39, pCO2 of 70.4, pO2 of 73 with 40% oxygen assist control, volume control, mechanical ventilation, respiratory rate of ____, tidal volume of 400 mL. The BMP of this morning, BUN 30, creatinine was normal. Glucose 184. CO2 of 40, chloride of 97. CBC today: WBC count of 12.6, hemoglobin 9.1, hematocrit 31.9, platelet count of 183,000. IMPRESSION: 1. Noted with continued acute on chronic severe hypercapnic hypoxic respiratory failure. 2. The patient with evidence of acute bronchitis. 3. Severe metabolic alkalosis. 4. Electrolyte imbalance. 5. The patient with the appearance of protein-calorie malnutrition as well. 6. The patient with a history of past nicotine dependence as well. 7. Severe metabolic alkalosis. PLAN OF MANAGEMENT: Repeat phosphorus level. Stop sedation. Once noted weaning the patient will be started on CPAP ____ pressure support of 10. Two hour to assess the patient progression of illness and readiness for liberation of mechanical ventilation. Bronchoscopy will be done tomorrow, which will be therapeutic. [place], [place] PROGRESS NOTE NAME: NICHOLE DISLA UNIT #: [id number] ROOM: [facility] DOCTOR: RIGO KILLIAN MD,TIARA BIRTHDATE: [birth year] PLAN OF ACTION: The patient most likely would be considered after the assessment bronchoscopy and bronchial tree. Continue current antibiotic corticosteroids. All the ventilator bundle management. Usual care, other supportive plan of therapy and care plan and treatment. Other additional treatment changes will be made for the patient based on the progression of the illness. Total time in pulmonary critical evaluation and management today was 35 minutes. TIARA SIERRA MD CM:PNTRANS [phone] TIARA KILILAN MD 05/18/18 1457 interface
--- NOTE | ~2018-05-16 | CON ---
[place], [place] REPORT OF CONSULTATION NAME: NICHOLE DISLA UNIT #: [id number] ROOM: 410 DOCTOR: SHANON GOMEZ MD BIRTHDATE: [birth year] DOS: 05/21/2018 HISTORY OF PRESENT ILLNESS: This is a 74-year-old patient who was presented with multiple medical issues among care of which has been end-stage lung disease and pulmonary management. We have been consulted with his anemia and drop in H and H. However, his main point of concern has been shortness of breath and hypoxemia and hypercapnia that has been being addressed with CO2 of 87. Lactic acid was 2.6 at the time of admission, cough and cold symptomatology. His chest x-ray initially was obtained and endotracheal tube placement, which verifies is need of intubation, ICU management subsequently to the floor. CTA of chest, no central pulmonary embolism, chronic emphysematous changes and large infrarenal abdominal aortic aneurysm approximately 7.[address] of the abdomen and pelvis has been obtained same results. Lactic acid improved and he has been back on the floor and he is telling me he has no issues with his bowel movement. He has no issues with his eating and he says his appetite is well and he is telling me that he is not going to have any investigation done. He does not want to have colonoscopy and any vaccine or any pneumonia injections. PAST MEDICAL HISTORY: Essentially associated chronic respiratory insufficiency and failure and history of tuberculosis in 1989. PAST SURGICAL HISTORY: None. SOCIAL HISTORY: Smoker and alcohol consumer. FAMILY HISTORY: Noncontributory. MEDICATION: List has been reviewed. ALLERGIES: NOVOCAIN. REVIEW OF SYSTEMS: HEENT: Denies double vision, blurred vision. RESPIRATORY: Admits to shortness of breath. CARDIOVASCULAR: Denies chest pain. DIGESTIVE SYSTEM: No hematemesis, no hematochezia. PHYSICAL EXAMINATION: VITAL SIGNS: Stable, relatively fragile man HEENT: Head normocephalic, nontraumatic. Mouth and buccal mucosa benign. There is a hyperplastic polypoid lesion which is going on his upper lip. Mouth and buccal mucosa benign, otherwise. NECK: Supple, no thyromegaly, no cervical lymphadenopathy. CHEST: Air exchange is absolutely dismal. He has expiratory wheezes. HEART: Normal sinus rhythm, no gallop, no murmur. ABDOMEN: Soft. No hepato-organomegaly. Bowel sounds present. EXTREMITIES: His lower extremities are bandaged bilaterally. Apparently, he has chronic leg ulcerations and vascular insufficiency, most likely. He is telling me that he has been taking care of for the past 9 years. NEUROLOGIC: Alert and appears to be oriented. [place], [place] REPORT OF CONSULTATION NAME: NICHOLE DISLA UNIT #: [id number] ROOM: 410 DOCTOR: SHANON GOMEZ MD BIRTHDATE: [birth year] Labs reviewed, records reviewed. IMPRESSION: Anemia, drop in H and H. Latest H and H has stabilized at 9 and 33, mixed macrocytic, microcytic indices and thrombocytopenia of 106. Abdominal aortic aneurysm of 7.6, and hypercapnia respiratory insufficiency, status post intubation and extubation. PLAN AND DISCUSSION: The patient refuses to have any investigational means done. We have discussed with him at his bedside. He is content where he is. Otherwise I will be standing by for his concerned, I do not believe he would be a candidate to undergoing endoscopic evaluation since he has already made his mind and as far as colonoscopy is ruled out with that large infrarenal aneurysm. I will be standing by. However, thank you very much indeed for your kind referral. SHANON GOMEZ MD CM:CONSTR:REPORT OF CONSULTATION 1909 05/22/18 0556 interface
--- NOTE | ~2018-05-16 | PR ---
[place], [place] PROGRESS NOTE NAME: NICHOLE DISLA UNIT #: [id number] ROOM: 415 DOCTOR: RIGO KILLIAN MDTIARA BIRTHDATE: [birth year] DOS: 05/20/2018 SUBJECTIVE: The patient was successfully liberated from mechanical ventilator. He self-extubated himself about close two hours. The patient was using BiPAP and noted tolerating the BiPAP. This morning, the patient was noted awake and alert post-extubation. He was starting the BiPAP setting of 18/10 which was well tolerated by the patient for several hours. The BiPAP use for significant amount of time post-liberation from mechanical ventilator. The patient has been started on clear liquid two hour for post-extubation and then after that resumed his diet, which has been well tolerated without any swallowing difficulty. He has not been noted symptoms of chest pain. General weakness and fatigue were reported. There were no symptoms of nausea, vomiting, diarrhea, abdominal pain, hematemesis, melena, no hematochezia. Denies edema or pain of the lower extremities. OBJECTIVE: VITAL SIGNS: Normal temperature, respiratory rate of 18, heart rate of 86, blood pressure 145/91-130/80. Pulse oxygen saturation on 4 liters nasal cannula was 90% saturation. HEAD, EYES, EARS, NOSE, AND THROAT: No acute change. NECK: Supple. CARDIOVASCULAR SYSTEM: S1, S2 audible. LUNGS: Without any crackles, mild expiratory wheezing. ABDOMEN: Soft, nontender. Bowel sounds present. EXTREMITIES: No acute edema. MUSCULOSKELETAL: Without acute deformities. SKIN: Visible skin lesions or rashes. CENTRAL NERVOUS SYSTEM: Intact. LABORATORY DATA: The patient's CBC today: WBC count normal, hemoglobin 9.5, hematocrit 33.5, platelet count were normal. CMP this morning is normal. BUN and creatinine, sodium mildly elevated at 148. The cultures of the bronchial washing yesterday was noted as normal claritza with final culture results of the bronchial washing remains pending from yesterday. The Gram stain of the bronchial washings were noted moderate white blood cells, no organisms. IMPRESSION: The patient with a significant progressive improvement in acute on chronic hypercapnic hypoxic respiratory failure. Resolution of metabolic alkalosis. The arterial blood gas was also done this morning on oxygen supplementation noted marked improvement in ventilatory status with pH of 7.38, pCO2 of 62, pO2 of 68. PLAN OF TREATMENT: The Solomon catheter will be discontinued. Solu-Medrol dose will be gradually decreased. The patient could be transferred from the intensive care unit to medical floor. Continuation of bronchodilators and oxygen supplementation. Supportive therapy, plan of management, other care plan. Continue nutrition support. Uses BiPAP at nighttime recommended p.r.n. during the day for any respiratory distress. [place], [place] PROGRESS NOTE NAME: NICHOLE DISLA UNIT #: [id number] ROOM: [facility] DOCTOR: TIARA FELIPE MD BIRTHDATE: [birth year] TIARA SIERRA MD CM:PNTRANS [phone] TIARA KILLIAN MD 05/20/18 1511 interface
[~2018-05-16 13:29] MED LIST changes: +FUROSEMIDE20 M1 PO; +GERI-HYDROLAC222 ML T
[2018-05-16 13:58] LABS: ABG BASE EXCESS 16.9 mmol/L (-2.0-2.0); ABG HCO3 46.4 mmol/l (22-26); ABG O2 SATURATION 99.9 % (95-97); ARTERIAL BLOOD GAS PH 7.334 (7.35-7.45)
[2018-05-16 13:59] LABS: HEMATOCRIT 42.6 % (42.0-52.0); MEAN CELL VOLUME 112.7 fl (80.0-94.0); MEAN CORPUSCULAR HGB 29.1 pg (27.0-31.0); MEAN CORPUSCULAR HGB CONC 25.8 g/dl (33.0-37.0); MEAN PLATELET VOLUME 9.8 fl (9.6-12.3); PLATELET COUNT AUTOMATED 107 10*3/uL (130-400); RED BLOOD COUNT 3.78 10*6/uL (4.50-5.90); RED CELL DISTRI WIDTH 13.1 % (0-14.5); WHITE BLOOD COUNT 5.2 10*3/uL (4.8-10.8)
[2018-05-16 14:05] LABS: ARTERIAL BLOOD GAS PCO2 87.4 mmHg (35-45)
[2018-05-16 14:14] LABS: ALBUMIN 2.8 gm/dl (3.1-4.5); ALKALINE PHOSPHATASE 60 U/L (45-117); BUN 23 mg/dl (7-24); CHLORIDE 94 mmol/L (98-107); CREATININE 0.88 mg/dL (0.70-1.30); LIPASE 257 U/L (73-393); POTASSIUM 5.6 mmol/L (3.5-5.1); SGOT/AST 17 IU/L (3-35); SGPT/ALT 13 U/L (12-78); SODIUM 142 mmol/L (136-145); TOTAL PROTEIN 6.3 gm/dL (6.4-8.2); TROPONIN I < 0.015 ng/ml (<0.045)
[2018-05-16 14:25] LABS: ACT PARTIAL THROMBO TIME 24.4 SECONDS (20.8-31.5)
[2018-05-16 14:26] LABS: TOTAL CELLS COUNTED 100 #CELLS
[2018-05-16 14:27] LABS: PLATELET SUFFICIENCY LOW (NORMAL)
[2018-05-16 14:29] LABS: STOMATOCYTE FEW
[2018-05-16 16:28] LABS: BASO % 0.2 % (0.0-1.0); EOS % 0.2 % (1.0-4.0); HEMATOCRIT 36.7 % (42.0-52.0); HEMOGLOBIN 10.2 g/dl (14.0-18.0); LYMPH # 0.9 10*3/uL (1.3-4.4); LYMPH % 9.9 % (27.0-41.0); MEAN CORPUSCULAR HGB CONC 27.8 g/dl (33.0-37.0); MEAN PLATELET VOLUME 10.5 fl (9.6-12.3); MONO % 10.5 % (3.0-9.0); NEUT # 7.4 10*3/uL (2.3-7.9); NUCLEATED RED BLOOD CELL 0.2 % (0.0-0.0); PLATELET COUNT AUTOMATED 126 10*3/uL (130-400); RED CELL DISTRI WIDTH 13.2 % (0-14.5); WHITE BLOOD COUNT 9.5 10*3/uL (4.8-10.8)
[2018-05-16 16:30] LABS: MEAN CELL VOLUME 107.9 fl (80.0-94.0)
[2018-05-16 16:39] LABS: ABG BASE EXCESS 18.9 mmol/L (-2.0-2.0); ABG HCO3 46.2 mmol/l (22-26); ABG O2 SATURATION 93.7 % (95-97); ARTERIAL BLOOD GAS PCO2 65.1 mmHg (35-45); ARTERIAL BLOOD GAS PH 7.458 (7.35-7.45); ARTERIAL BLOOD GAS PO2 51.7 mmHg (80-90)
[2018-05-17] VITALS (12 sets, daily range): BP systolic 101–127; BP diastolic 60–77
[2018-05-17 04:59] LABS: BASO % 0.1 % (0.0-1.0); HEMATOCRIT 34.8 % (42.0-52.0); HEMOGLOBIN 9.5 g/dl (14.0-18.0); LYMPH # 0.6 10*3/uL (1.3-4.4); MEAN CELL VOLUME 105.8 fl (80.0-94.0); MEAN CORPUSCULAR HGB 28.9 pg (27.0-31.0); MEAN CORPUSCULAR HGB CONC 27.3 g/dl (33.0-37.0); MONO # 0.2 10*3/uL (0.1-1.0); MONO % 3.4 % (3.0-9.0); NEUT # 6.2 10*3/uL (2.3-7.9); NEUT % 87.9 % (47.0-73.0); PLATELET COUNT AUTOMATED 107 10*3/uL (130-400); RED BLOOD COUNT 3.29 10*6/uL (4.50-5.90); RED CELL DISTRI WIDTH 12.9 % (0-14.5); WHITE BLOOD COUNT 7.1 10*3/uL (4.8-10.8)
[2018-05-17 04:59] LABS: BILIRUBIN NEGATIVE (NEGATIVE); BLOOD NEGATIVE (NEGATIVE); CLARITY CLEAR (CLEAR); COLOR YELLOW (YELLOW); GLUCOSE NEGATIVE (NEGATIVE); KETONE 2+ (NEGATIVE); LEUKO ESTERASE NEGATIVE (NEGATIVE); NITRITE NEGATIVE (NEGATIVE); PH >= 9.0 (5.0-9.0); UROBILINOGEN 0.2 E.U./dl (0.2-1.0)
[2018-05-17 05:18] LABS: ALBUMIN 2.6 gm/dl (3.1-4.5); ALKALINE PHOSPHATASE 50 U/L (45-117); BUN 27 mg/dl (7-24); CHLORIDE 96 mmol/L (98-107); CREATININE 1.09 mg/dL (0.70-1.30); SGOT/AST 17 IU/L (3-35); SGPT/ALT 11 U/L (12-78); SODIUM 143 mmol/L (136-145); TOTAL PROTEIN 5.4 gm/dL (6.4-8.2)
[2018-05-17 05:19] LABS: POTASSIUM 3.6 mmol/L (3.5-5.1)
[2018-05-17 05:28] LABS: PHOSPHOROUS 0.9 mg/dL (2.5-4.9)
[2018-05-17 05:31] LABS: WBC 0-2 wbc/hpf (0-5)
[2018-05-17 07:10] LABS: ABG HCO3 42.4 mmol/l (22-26); ABG O2 SATURATION 98.2 % (95-97); ARTERIAL BLOOD GAS PCO2 45.4 mmHg (35-45); ARTERIAL BLOOD GAS PH 7.581 (7.35-7.45); ARTERIAL BLOOD GAS PO2 85.4 mmHg (80-90)
[2018-05-17 13:43] LABS: ABG BASE EXCESS 15.4 mmol/L (-2.0-2.0); ABG HCO3 42.4 mmol/l (22-26); ABG O2 SATURATION 94.8 % (95-97); ARTERIAL BLOOD GAS PH 7.392 (7.35-7.45); ARTERIAL BLOOD GAS PO2 72.5 mmHg (80-90)
[2018-05-17 13:46] LABS: ARTERIAL BLOOD GAS PCO2 71.7 mmHg (35-45)
[2018-05-18] VITALS (12 sets, daily range): BP systolic 92–131; BP diastolic 52–79
[2018-05-18 05:58] LABS: BUN 30 mg/dl (7-24); CHLORIDE 97 mmol/L (98-107); CREATININE 0.75 mg/dL (0.70-1.30); PHOSPHOROUS 3.7 mg/dL (2.5-4.9); POTASSIUM 3.7 mmol/L (3.5-5.1); SODIUM 144 mmol/L (136-145)
[2018-05-18 06:20] LABS: HEMATOCRIT 31.9 % (42.0-52.0); HEMOGLOBIN 9.1 g/dl (14.0-18.0); MEAN CORPUSCULAR HGB 29.1 pg (27.0-31.0); MEAN CORPUSCULAR HGB CONC 28.5 g/dl (33.0-37.0); PLATELET COUNT AUTOMATED 103 10*3/uL (130-400); RED BLOOD COUNT 3.13 10*6/uL (4.50-5.90); RED CELL DISTRI WIDTH 13.8 % (0-14.5); WHITE BLOOD COUNT 12.6 10*3/uL (4.8-10.8)
[2018-05-18 06:22] LABS: MEAN CELL VOLUME 101.9 fl (80.0-94.0)
[2018-05-18 06:45] LABS: PLATELET SUFFICIENCY LOW (NORMAL); TOTAL CELLS COUNTED 100 #CELLS
[2018-05-18 07:13] LABS: ABG BASE EXCESS 15.2 mmol/L (-2.0-2.0); ABG HCO3 42.2 mmol/l (22-26); ABG O2 SATURATION 94.7 % (95-97); ARTERIAL BLOOD GAS PH 7.395 (7.35-7.45); ARTERIAL BLOOD GAS PO2 73.1 mmHg (80-90)
[2018-05-18 07:17] LABS: ARTERIAL BLOOD GAS PCO2 70.4 mmHg (35-45)
[2018-05-18 15:03] LABS: ABG BASE EXCESS 14.4 mmol/L (-2.0-2.0); ABG HCO3 41.2 mmol/l (22-26); ABG O2 SATURATION 90.1 % (95-97); ARTERIAL BLOOD GAS PCO2 69.7 mmHg (35-45); ARTERIAL BLOOD GAS PH 7.393 (7.35-7.45); ARTERIAL BLOOD GAS PO2 62.3 mmHg (80-90)
[2018-05-19] VITALS (8 sets, daily range): BP systolic 111–140; BP diastolic 63–83
[2018-05-19 05:11] LABS: HEMATOCRIT 31.8 % (42.0-52.0); HEMOGLOBIN 9.3 g/dl (14.0-18.0); LYMPH # 0.8 10*3/uL (1.3-4.4); LYMPH % 6.9 % (27.0-41.0); MEAN CORPUSCULAR HGB 29.5 pg (27.0-31.0); MEAN CORPUSCULAR HGB CONC 29.2 g/dl (33.0-37.0); MONO # 0.6 10*3/uL (0.1-1.0); NEUT # 9.6 10*3/uL (2.3-7.9); NEUT % 87.6 % (47.0-73.0); PLATELET COUNT AUTOMATED 94 10*3/uL (130-400); RED BLOOD COUNT 3.15 10*6/uL (4.50-5.90); RED CELL DISTRI WIDTH 14.3 % (0-14.5); WHITE BLOOD COUNT 10.9 10*3/uL (4.8-10.8)
[2018-05-19 05:24] LABS: BUN 29 mg/dl (7-24); CHLORIDE 101 mmol/L (98-107); CREATININE 0.61 mg/dL (0.70-1.30); PHOSPHOROUS 3.1 mg/dL (2.5-4.9); POTASSIUM 3.6 mmol/L (3.5-5.1); SODIUM 145 mmol/L (136-145)
[2018-05-19 07:10] LABS: ABG BASE EXCESS 13.2 mmol/L (-2.0-2.0); ABG HCO3 40.2 mmol/l (22-26); ABG O2 SATURATION 92.7 % (95-97); ARTERIAL BLOOD GAS PCO2 68.6 mmHg (35-45); ARTERIAL BLOOD GAS PH 7.383 (7.35-7.45); ARTERIAL BLOOD GAS PO2 66.3 mmHg (80-90)
[2018-05-19 11:56] LABS: ABG BASE EXCESS 11.7 mmol/L (-2.0-2.0); ABG HCO3 39.2 mmol/l (22-26); ABG O2 SATURATION 92.2 % (95-97); ARTERIAL BLOOD GAS PH 7.355 (7.35-7.45); ARTERIAL BLOOD GAS PO2 66.9 mmHg (80-90)
[2018-05-19 12:00] LABS: ARTERIAL BLOOD GAS PCO2 71.7 mmHg (35-45)
[2018-05-20] VITALS: BP 140/90
[2018-05-20 04:00] VITALS: BP 145/91
[2018-05-20 05:42] LABS: ALBUMIN 2.4 gm/dl (3.1-4.5); ALKALINE PHOSPHATASE 40 U/L (45-117); BUN 22 mg/dl (7-24); CHLORIDE 104 mmol/L (98-107); PHOSPHOROUS 1.6 mg/dL (2.5-4.9); POTASSIUM 3.7 mmol/L (3.5-5.1); SGOT/AST 9 IU/L (3-35); SGPT/ALT 10 U/L (12-78); SODIUM 148 mmol/L (136-145); TOTAL PROTEIN 5.4 gm/dL (6.4-8.2)
[2018-05-20 06:05] LABS: BASO % 0.1 % (0.0-1.0); EOS % 0.1 % (1.0-4.0); HEMATOCRIT 33.5 % (42.0-52.0); HEMOGLOBIN 9.5 g/dl (14.0-18.0); LYMPH # 2.2 10*3/uL (1.3-4.4); MEAN CELL VOLUME 101.2 fl (80.0-94.0); MEAN CORPUSCULAR HGB 28.7 pg (27.0-31.0); MEAN CORPUSCULAR HGB CONC 28.4 g/dl (33.0-37.0); MEAN PLATELET VOLUME 11.2 fl (9.6-12.3); MONO # 1.1 10*3/uL (0.1-1.0); MONO % 11.6 % (3.0-9.0); NEUT # 6.1 10*3/uL (2.3-7.9); PLATELET COUNT AUTOMATED 99 10*3/uL (130-400); RED BLOOD COUNT 3.31 10*6/uL (4.50-5.90); RED CELL DISTRI WIDTH 14.3 % (0-14.5); WHITE BLOOD COUNT 9.4 10*3/uL (4.8-10.8)
[2018-05-20 08:00] VITALS: BP 130/80
[2018-05-20 10:18] LABS: ABG BASE EXCESS 9.8 mmol/L (-2.0-2.0); ABG HCO3 36.5 mmol/l (22-26); ABG O2 SATURATION 93.6 % (95-97); ARTERIAL BLOOD GAS PCO2 62.2 mmHg (35-45); ARTERIAL BLOOD GAS PH 7.383 (7.35-7.45)
[2018-05-20 12:00] VITALS: BP 124/64
[2018-05-20 14:05] LABS: ACID FAST SPEC PROCESSING Concentration (.)
[2018-05-20 16:00] VITALS: BP 128/83
[2018-05-20 20:00] VITALS: BP 131/81
[2018-05-21] VITALS: BP 129/85
[2018-05-21 06:47] LABS: BASO % 0.1 % (0.0-1.0); EOS # 0.1 10*3/uL (0.0-0.4); EOS % 0.7 % (1.0-4.0); HEMATOCRIT 33.9 % (42.0-52.0); HEMOGLOBIN 9.7 g/dl (14.0-18.0); LYMPH # 2.3 10*3/uL (1.3-4.4); LYMPH % 28.6 % (27.0-41.0); MEAN CELL VOLUME 101.2 fl (80.0-94.0); MEAN CORPUSCULAR HGB CONC 28.6 g/dl (33.0-37.0); MONO # 1.1 10*3/uL (0.1-1.0); MONO % 13.1 % (3.0-9.0); NEUT # 4.7 10*3/uL (2.3-7.9); NEUT % 57.3 % (47.0-73.0); PLATELET COUNT AUTOMATED 106 10*3/uL (130-400); RED BLOOD COUNT 3.35 10*6/uL (4.50-5.90); RED CELL DISTRI WIDTH 14.1 % (0-14.5); WHITE BLOOD COUNT 8.2 10*3/uL (4.8-10.8)
[2018-05-21 07:11] LABS: CHLORIDE 100 mmol/L (98-107); POTASSIUM 4.1 mmol/L (3.5-5.1); SODIUM 143 mmol/L (136-145)
[2018-05-21 07:27] LABS: ALBUMIN 2.7 gm/dl (3.1-4.5); ALKALINE PHOSPHATASE 46 U/L (45-117); BUN 21 mg/dl (7-24); CREATININE 0.56 mg/dL (0.70-1.30); PHOSPHOROUS 2.8 mg/dL (2.5-4.9); SGOT/AST 13 IU/L (3-35); SGPT/ALT 11 U/L (12-78); TOTAL PROTEIN 5.3 gm/dL (6.4-8.2)
[2018-05-21 08:00] VITALS: BP 133/86
[2018-05-21 12:00] VITALS: BP 128/92
[2018-05-21 16:00] VITALS: BP 134/66
[2018-05-21 20:00] VITALS: BP 143/89
[2018-05-22] VITALS: BP 141/92; BP 146/84
[2018-05-22 07:07] LABS: BASO % 0.2 % (0.0-1.0); EOS # 0.1 10*3/uL (0.0-0.4); EOS % 1.3 % (1.0-4.0); HEMATOCRIT 31.8 % (42.0-52.0); HEMOGLOBIN 9.5 g/dl (14.0-18.0); LYMPH # 2.3 10*3/uL (1.3-4.4); MEAN CELL VOLUME 98.5 fl (80.0-94.0); MEAN CORPUSCULAR HGB 29.4 pg (27.0-31.0); MEAN CORPUSCULAR HGB CONC 29.9 g/dl (33.0-37.0); MEAN PLATELET VOLUME 10.8 fl (9.6-12.3); MONO # 1.2 10*3/uL (0.1-1.0); MONO % 12.5 % (3.0-9.0); NEUT # 5.9 10*3/uL (2.3-7.9); NEUT % 61.5 % (47.0-73.0); PLATELET COUNT AUTOMATED 100 10*3/uL (130-400); RED BLOOD COUNT 3.23 10*6/uL (4.50-5.90); RED CELL DISTRI WIDTH 13.9 % (0-14.5); WHITE BLOOD COUNT 9.6 10*3/uL (4.8-10.8)
[2018-05-22 07:41] LABS: ALBUMIN 2.7 gm/dl (3.1-4.5); BUN 22 mg/dl (7-24); CHLORIDE 101 mmol/L (98-107); POTASSIUM 3.7 mmol/L (3.5-5.1); SODIUM 142 mmol/L (136-145)
[2018-05-22 07:44] LABS: ALKALINE PHOSPHATASE 44 U/L (45-117); CREATININE 0.56 mg/dL (0.70-1.30); SGOT/AST 13 IU/L (3-35); SGPT/ALT 12 U/L (12-78); TOTAL PROTEIN 5.4 gm/dL (6.4-8.2)
[2018-05-22 07:45] VITALS: BP 120/70
[2018-05-22 11:30] VITALS: BP 132/94
[2018-05-22 16:00] VITALS: BP 139/86
[2018-05-22 20:00] VITALS: BP 147/99
[2018-05-22 21:23] VITALS: BP 138/86
[2018-05-23] VITALS: BP 121/72
[2018-05-23 12:00] VITALS: BP 128/83
[2018-05-23] MEDS ORDERED: PREDNISONE10 MG PO (15:41)
[2018-05-23] MEDS ORDERED: AVPAK AZITHROM250 MG PO (15:41)
[2018-05-23 16:00] VITALS: BP 120/70
== END 2018-05-23 19:15 | disposition other institution (70) | DRG 871 ==
LOC: ED 13:29 → ICCU 14:27 → EDHOLD 14:27 → ICCU 14:34 → 4E 05-20 13:38
PROVIDERS: Emergency Medicine; Internal Medicine; Internal Medicine Critical Care Medicine; Student in an Organized Health Care Education/Training Program
PROC: B548ZZA Ultrasonography of Superior Vena Cava, Guidance (ICD-10-PCS; principal; 2018-05-16)
PROC: 02HV33Z Insertion of Infusion Device into Superior Vena Cava, Percutaneous Approach (ICD-10-PCS; principal; 2018-05-16)
PROC: 0BH17EZ Insertion of Endotracheal Airway into Trachea, Via Natural or Artificial Opening (ICD-10-PCS; principal; 2018-05-16)
PROC: 5A1945Z Respiratory Ventilation, 24-96 Consecutive Hours (ICD-10-PCS; principal; 2018-05-16)
PROC: 0BC68ZZ Extirpation of Matter from Right Lower Lobe Bronchus, Via Natural or Artificial Opening Endoscopic (ICD-10-PCS; 2018-05-19)
PROC: 0BCB8ZZ Extirpation of Matter from Left Lower Lobe Bronchus, Via Natural or Artificial Opening Endoscopic (ICD-10-PCS; 2018-05-19)
PROC: 5A09357 Assistance with Respiratory Ventilation, Less than 24 Consecutive Hours, Continuous Positive Airway Pressure (ICD-10-PCS; 2018-05-19)
PROC: 0BC48ZZ Extirpation of Matter from Right Upper Lobe Bronchus, Via Natural or Artificial Opening Endoscopic (ICD-10-PCS; 2018-05-19)
PROC: 0BC88ZZ Extirpation of Matter from Left Upper Lobe Bronchus, Via Natural or Artificial Opening Endoscopic (ICD-10-PCS; 2018-05-19)
PROC: 0BC18ZZ Extirpation of Matter from Trachea, Via Natural or Artificial Opening Endoscopic (ICD-10-PCS; 2018-05-19)
PROC: 0BC58ZZ Extirpation of Matter from Right Middle Lobe Bronchus, Via Natural or Artificial Opening Endoscopic (ICD-10-PCS; 2018-05-19)
PROC: 0BC98ZZ Extirpation of Matter from Lingula Bronchus, Via Natural or Artificial Opening Endoscopic (ICD-10-PCS; 2018-05-19)
PROC: 0BC38ZZ Extirpation of Matter from Right Main Bronchus, Via Natural or Artificial Opening Endoscopic (ICD-10-PCS; 2018-05-19)
PROC: 0BC78ZZ Extirpation of Matter from Left Main Bronchus, Via Natural or Artificial Opening Endoscopic (ICD-10-PCS; 2018-05-19)
PROC: 5A09357 Assistance with Respiratory Ventilation, Less than 24 Consecutive Hours, Continuous Positive Airway Pressure (ICD-10-PCS; 2018-05-22)
PROC: 5A09357 Assistance with Respiratory Ventilation, Less than 24 Consecutive Hours, Continuous Positive Airway Pressure (ICD-10-PCS; 2018-05-23)
DX: A41.9 Sepsis, unspecified organism (principal); J18.9 Pneumonia, unspecified organism; E43 Unspecified severe protein-calorie malnutrition; J96.21 Acute and chronic respiratory failure with hypoxia; J96.22 Acute and chronic respiratory failure with hypercapnia; I50.32 Chronic diastolic (congestive) heart failure; L97.909 Non-pressure chronic ulcer of unspecified part of unspecified lower leg with unspecified severity; K62.5 Hemorrhage of anus and rectum; F33.9 Major depressive disorder, recurrent, unspecified; E87.3 Alkalosis; J44.0 Chronic obstructive pulmonary disease with (acute) lower respiratory infection; T17.590A Other foreign object in bronchus causing asphyxiation, initial encounter; D63.8 Anemia in other chronic diseases classified elsewhere; I99.8 Other disorder of circulatory system; E83.39 Other disorders of phosphorus metabolism; R65.20 Severe sepsis without septic shock; D69.6 Thrombocytopenia, unspecified; J20.9 Acute bronchitis, unspecified; E11.65 Type 2 diabetes mellitus with hyperglycemia; E83.41 Hypermagnesemia; I11.0 Hypertensive heart disease with heart failure; E87.8 Other disorders of electrolyte and fluid balance, not elsewhere classified; E87.5 Hyperkalemia; I71.4 Abdominal aortic aneurysm, without rupture; D53.9 Nutritional anemia, unspecified; X58.XXXA Exposure to other specified factors, initial encounter; E78.00 Pure hypercholesterolemia, unspecified; F17.210 Nicotine dependence, cigarettes, uncomplicated; E78.5 Hyperlipidemia, unspecified; Z88.5 Allergy status to narcotic agent; Z79.82 Long term (current) use of aspirin; Z79.899 Other long term (current) drug therapy; Z99.81 Dependence on supplemental oxygen; Z80.8 Family history of malignant neoplasm of other organs or systems; Y93.89 Activity, other specified; Y92.89 Other specified places as the place of occurrence of the external cause; Y99.8 Other external cause status; Z68.23 Body mass index [BMI] 23.0-23.9, adult

== ENCOUNTER 2018-06-13 17:01 | Inpatient (IN) | payer MEDICARE, OTHER ==
[~2018-06-13] VITALS: Ht 182.9 cm; Wt 75.3 kg
--- NOTE | ~2018-06-13 | EKG ---
[place], [place] ELECTROCARDIOGRAM REPORT NAME: NICHOLE DISLA UNIT #: [id number] ROOM: [facility] DOCTOR: TERESE DRAFT REPORT BIRTHDATE: [birth year] [facility] Test Date: 2018-06-18 Test Time: 07:02:29 Pat Name: NICHOLE DISLA Department: Room: [facility] Gender: M Accountant Property: Trang Krishnan : 1945 Requested By: NAYA GAN Order Number: [id number] Reading MD: Luis Miguel Buck MD Measurements Intervals [place] Rate: 87 P: 81 RI: 140 QRS: 73 QRSD: 98 T: 75 QT: 387 QTc: 466 Interpretive Statements Sinus rhythm Ventricular premature complex Abnormal R-wave progression, early transition Minimal ST depression, inferior leads Compared to ECG 05/16/2018 13:48:14 Ventricular premature complex(es) now present ST (T wave) deviation still present Electronically Signed On 06-18-2018 18:21:48 PST by Luis Miguel Buck MD CM:EKGRPT:ELECTROCARDIOGRAM REPORT 182 NAYA ROYAL DRAFT REPORT NAYA GAN DO
--- NOTE | ~2018-06-13 | PR ---
[place], [place] PROGRESS NOTE NAME: [id number] UNIT #: [id number] ROOM: 410 DOCTOR: VENITA GEORGE MD BIRTHDATE: [birth year] DOS: The patient has been admitted to hospital with positive skin test for TB, but has been seen by Infectious Disease specialist. According to her, the patient is not having any active tuberculosis now and there is no need for TB treatment and suggestive third bronchoscopy is negative, there is no need to ____. The patient had 2 times bronchoscopy done in the last 2 months. It did not show any evidence of any tuberculosis and he has a CT chest done, showed left lower lobe and lateral basal and posterior basal segment localized consolidation. AFB test done but negative 2 times, and sputum culture and sensitivity done now shows normal claritza. No evidence of TB. AFB smear culture is negative with pending for culture report and CBC showed white count 7200, hemoglobin 10.1, hematocrit 33.9, creatinine is 0.7. Blood pressure is 124/55, pulse 62, respirations 18, temperature 98.3. Heart is regular. Chest is clear. Abdomen is soft. Patient is seen lying very comfortable and he does not even know why he is in the hospital. VENITA GEORGE MD CM:PNTRANS [id number] VENITA GEORGE MD 06/17/18 1647 interface
--- NOTE | ~2018-06-13 | CON ---
[place], [place] REPORT OF CONSULTATION NAME: NICHOLE DISLA UNIT #: [id number] ROOM: 410 DOCTOR: ERIC LÓPEZ MD BIRTHDATE: [birth year] DOS: 06/14/2018 REASON FOR CONSULTATION: Rule out TB. CHIEF COMPLAINT: Sent from [facility] to rule out TB. HISTORY OF PRESENT ILLNESS: This is a 73-year-old male who is presenting from [facility] because it was told to him to rule out active TB and the [facility] did not have any negative pressure room and was sent to the hospital for further evaluation. 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 At that time, he had repeated pneumonia and was getting treated at [place]. After that, he did not have any problem in his life, although this year, he had multiple admissions for his COPD and his recent admission was in early May when he was evaluated by Pulmonology for COPD exacerbation. He was given Solu-Medrol. He was treated for community-acquired pneumonia and discharged on a Z-DIANE. He had similar admission in March, October and June for this year and according to the patient, he has more admissions this year also because he has been actively smoking and getting older. All this time, he denies having any weight loss. No fever, chills or night sweats. He had a recent bronchoscopy done on 05/16/2018 that showed normal claritza. Fungal culture had rare budding yeast, but it never grew anything. Another bronchoscopy was done on May 19 and that also did not have any significant growth. At the [facility], he had a CT chest done that showed left lower lobe lateral basilar and posterior basilar segmental localized consolidation. I am not sure why this chest CT was ordered and that initiated AFB testing, although the patient has already been treated for TB, repeat QuantiFERON was done that was positive, two negative AFB sputum smears. The patient has been kept in airborne isolation. ID has been consulted for further management. I reviewed his chest CT. There is not much of change as seen a month ago. The patient has already been started on rifampin plus isoniazid and pyridoxine. PAST MEDICAL HISTORY: Significant for: 1. TB as mentioned above. 2. Emphysema. 3. Congestive heart failure, hypertension, anemia. 4. The patient had served in [place] in and he has suffered skin damage from [place] and has flaking of skin over his face and hands bilaterally. PAST SURGICAL HISTORY: None. SOCIAL HISTORY: Active smoker since the age of 19 years, half a pack per day. Nonalcoholic. No illicit drug use. FAMILY HISTORY: Father of tuberculosis. He lived in [place] at that time, was a regional company flatbed truck driver. The family moved to [place] and none of his siblings or mother were diagnosed with TB. Only he had repeated pneumonias when he was [place], [place] REPORT OF CONSULTATION NAME: NICHOLE DISLA UNIT #: [id number] ROOM: 410 DOCTOR: MARIBEL WOLFERIC BIRTHDATE: [birth year] diagnosed with TB. Mother had history of brain cancer, . ALLERGIES: PROCAINE. HOME MEDICATIONS: Reviewed. REVIEW OF SYSTEMS: A 12-point review of systems has been done. Pertinent negatives and positives have been included HPI, rest are noncontributory. PHYSICAL EXAMINATION: VITAL SIGNS: Noted, stable. GENERAL APPEARANCE: The patient is alert, oriented x 3, not in acute distress. HEENT: Atraumatic, normocephalic. PERRLA. EOMI. RESPIRATORY: Air entry bilaterally equal. No wheeze or crackles. CARDIOVASCULAR: S1, S2 normal. No murmur, rubs or gallop. ABDOMEN: Soft, nontender, nondistended. Bowel sounds present. EXTREMITIES: Bilateral hands have arthritis changes with nodularity over the metacarpophalangeal joints. SKIN: There is redness and scaling of the skin over bilateral hands as well as pain as a result of exposure to [place] in during [place]. NEUROLOGIC: Grossly intact. LABORATORY DATA AND IMAGING: Reviewed, mentioned in HPI. ASSESSMENT: 1. History of tuberculosis, treated for 6 months in the past and was likely active tuberculosis as suggested by 6-month treatment. 2. Chronic obstructive pulmonary disease in active smoker. 3. Dermatitis from [place] in during [place]. PLAN: At this time, I do not think he has active TB. He has been already kept in airborne isolation and two AFBs sputum have been negative. Would recommend if the third one is negative to discontinue his isolation. There is no indication to treat him for TB with isoniazid, rifampin, and pyridoxine. The patients should never be initiated on TB treatment unless they are in septic shock or never been treated or with extensive disease. This just leads to extensive resistance. Pulmonary has evaluated the patient extensively. He had two bronchoscopies within 1 week and no fungal growth. I would suggest rather to look for atypical organisms as well as malignancy if next time he presents with COPD exacerbation. He also needs to quit smoking to get control over his COPD exacerbations. I did discuss with Dr. Meyer this morning. Please call Infectious Disease for any questions. Thank you for your consult. Please obtain the records from [facility] to avoid these isolation questions in the future. [place], [place] REPORT OF CONSULTATION NAME: NICHOLE DISLA UNIT #: [id number] ROOM: 410 DOCTOR: ERIC LÓPEZ MD BIRTHDATE: [birth year] Eric López MD CM:CONSTR:REPORT OF CONSULTATION 27 06/15/18 1526 interface
[2018-06-13 17:01] VITALS: BP 151/86
[~2018-06-13 17:01] MED LIST changes: +AVPAK AZITHROM250 MG PO
--- NOTE | 2018-06-13 17:42 | NUR ---
DR PRINCE NOW CALLS DR DAWN TO CLARIFY THE MUTLIPLE QUESTIONS HE HAD ABOUT WHY PT WAS SENT HERE. THE BASE REASON FOR TRANSFER HERE WAS THAT THE HEALTH DEPARTMENT CALLED THE [facility] TO INQUIRE IF THE PT HAD HAD 3 NEGATIVE SPUTUM CULTURES. HE HAS ONLY HAD TWO. DUE TO THE RECENT "INCONCLUSIVE" QUALITATIVE INTERFERON AND CHEST XRAY THE HEALTH DEPARTMENT RECOMMENDED PT BE BROUGHT FOR INPATIENT ADMISSION WITH NEGATIVE AIRFLOW UNTIL THESE CULTURES COULD BE OBTAINED.
--- NOTE | 2018-06-13 17:45 | NUR ---
SIGNAGE WITH THE PINK/AIRBORNE STOP SIGN PLACED ON DOOR. N95 MASKS AVAILIBLE ARE THE PAPPER MASKS.
[2018-06-13 18:00] LABS: BASO % 0.1 % (0.0-1.0); EOS # 0.4 10*3/uL (0.0-0.4); EOS % 4.6 % (1.0-4.0); HEMOGLOBIN 10.3 g/dl (14.0-18.0); LYMPH % 24.7 % (27.0-41.0); MEAN CELL VOLUME 96.9 fl (80.0-94.0); MEAN CORPUSCULAR HGB 29.3 pg (27.0-31.0); MEAN CORPUSCULAR HGB CONC 30.3 g/dl (33.0-37.0); MONO # 0.8 10*3/uL (0.1-1.0); MONO % 10.4 % (3.0-9.0); NEUT # 4.7 10*3/uL (2.3-7.9); NEUT % 59.8 % (47.0-73.0); PLATELET COUNT AUTOMATED 146 10*3/uL (130-400); RED BLOOD COUNT 3.51 10*6/uL (4.50-5.90); RED CELL DISTRI WIDTH 13.9 % (0-14.5); WHITE BLOOD COUNT 7.9 10*3/uL (4.8-10.8)
[2018-06-13 18:15] LABS: ALBUMIN 3.1 gm/dl (3.1-4.5); ALKALINE PHOSPHATASE 71 U/L (45-117); BUN 22 mg/dl (7-24); CHLORIDE 101 mmol/L (98-107); POTASSIUM 4.3 mmol/L (3.5-5.1); SGOT/AST 10 IU/L (3-35); SGPT/ALT 18 U/L (12-78); SODIUM 142 mmol/L (136-145); TOTAL PROTEIN 6.7 gm/dL (6.4-8.2)
[2018-06-13 19:16] VITALS: BP 130/81
--- NOTE | 2018-06-13 19:25 | NUR ---
RN TO RN REPORT RECEIVED FROM CEZAR LYNCH. PATIENT IS RESTING IN ROOM. DENIES NEEDS AT THIS TIME.
[2018-06-13 19:50] VITALS: BP 132/72
[2018-06-13 20:00] VITALS: BP 142/78
--- NOTE | 2018-06-13 20:00 | NUR ---
A 73, admitted to , under the services of NOEL Vinson MD with a diagnosis of POSITIVE TB TEST. Chief complaint is POSITIVE TB TEST. Patient arrived via stretcher from ER. Monitor applied. Initial assessment completed. Vital signs taken and recorded. NOEL VINSON MD notified of admission to the unit. Orders received. See assessment for past medical history, medications and allergies. Patient and/or family oriented to unit. [facility] visitation policy reviewed. Clothing/patient valuable form completed. LEVI FLORES
--- NOTE | 2018-06-13 20:54 | NUR ---
PT ARRIVED TO FLOOR VIA STRETCHER AT 2100. PT [id number] AND AMBULATORY. PT WAS ORIENTED TO ROOM AND INSTRUCTED ON HOW TO USE CALL LIGHT.
[2018-06-14] VITALS: BP 113/72
[2018-06-14 04:00] VITALS: BP 127/70
[2018-06-14 06:30] LABS: BASO % 0.2 % (0.0-1.0); EOS # 0.3 10*3/uL (0.0-0.4); EOS % 5.1 % (1.0-4.0); HEMATOCRIT 34.2 % (42.0-52.0); HEMOGLOBIN 10.2 g/dl (14.0-18.0); LYMPH # 1.5 10*3/uL (1.3-4.4); LYMPH % 23.3 % (27.0-41.0); MEAN CELL VOLUME 98.3 fl (80.0-94.0); MEAN CORPUSCULAR HGB 29.3 pg (27.0-31.0); MEAN CORPUSCULAR HGB CONC 29.8 g/dl (33.0-37.0); MEAN PLATELET VOLUME 9.7 fl (9.6-12.3); MONO # 0.7 10*3/uL (0.1-1.0); MONO % 10.7 % (3.0-9.0); NEUT # 3.9 10*3/uL (2.3-7.9); NEUT % 60.4 % (47.0-73.0); PLATELET COUNT AUTOMATED 153 10*3/uL (130-400); RED BLOOD COUNT 3.48 10*6/uL (4.50-5.90); RED CELL DISTRI WIDTH 13.7 % (0-14.5); WHITE BLOOD COUNT 6.5 10*3/uL (4.8-10.8)
--- NOTE | 2018-06-14 06:47 | NUR ---
ID CALLED FOR CONSULT FOR POSITIVE TB TEST. INFORMATION LEFT WITH ANSWERING SERVICE AND WILL RECIEVE A CALL BACK THIS MORNING.
[2018-06-14 06:53] LABS: ALBUMIN 2.8 gm/dl (3.1-4.5); ALKALINE PHOSPHATASE 63 U/L (45-117); BUN 17 mg/dl (7-24); CHLORIDE 103 mmol/L (98-107); CREATININE 0.59 mg/dL (0.70-1.30); PHOSPHOROUS 4.9 mg/dL (2.5-4.9); POTASSIUM 3.8 mmol/L (3.5-5.1); SGOT/AST 7 IU/L (3-35); SGPT/ALT 16 U/L (12-78); SODIUM 143 mmol/L (136-145); TOTAL PROTEIN 5.9 gm/dL (6.4-8.2)
[2018-06-14 08:00] VITALS: BP 123/72
[2018-06-14 11:58] VITALS: BP 100/62
[2018-06-14 15:48] VITALS: BP 104/67
--- NOTE | 2018-06-14 19:30 | NUR ---
PT AWAKE AND RESTING IN BED. HE STATES THAT HE WISHES TO BE DISCHARGED TO HOME SOON POSSIBLE. PT VOICED NO CONCERNS OR COMPLAINTS OF PAIN. CALL LIGHT WITHIN REACH.
[2018-06-14 20:00] VITALS: BP 112/60
[2018-06-15] VITALS: BP 123/79
--- NOTE | 2018-06-15 03:54 | NUR ---
24 HR chart check completed.
[2018-06-15 08:00] VITALS: BP 110/68
[2018-06-15 12:00] VITALS: BP 117/73
[2018-06-15 14:03] LABS: ACID FAST SPEC PROCESSING Concentration (.)
[2018-06-15 16:00] VITALS: BP 106/69
[2018-06-15 20:00] VITALS: BP 133/72
[2018-06-16] VITALS: BP 139/77
--- NOTE | 2018-06-16 03:05 | NUR ---
ASSUMED CARE OF PATIENT AT THIS TIME. NO S/S OF DISTRESS. CALL LIGHT WITHIN REACH. PATIENT RESTING COMFORTABLY IN HIS BED AT THIS TIME.
[2018-06-16 04:00] VITALS: BP 138/83
[2018-06-16 05:30] VITALS: BP 124/76
--- NOTE | 2018-06-16 09:00 | NUR ---
Video News Editor in to see patient. He is currently at [facility] and plans to return there upon discharge. assortment planner following.
--- NOTE | 2018-06-16 14:31 | NUR ---
Notified Mckenzie at the [facility] of admission. Patient would like [facility] billed for this stay.
--- NOTE | 2018-06-16 19:00 | NUR ---
PT AWAKE AND RESTING IN BED WATCHING TV. PT REPORTS THAT HE IS HAVING NO PAIN AND NO OTHER COMPLAINTS AT THIS TIME. CALL MARIEE WITHIN REACH, BED LOW.
[2018-06-16 20:00] VITALS: BP 123/76
[2018-06-17] VITALS: BP 124/55
[2018-06-17 06:25] LABS: BASO % 0.3 % (0.0-1.0); EOS # 0.5 10*3/uL (0.0-0.4); EOS % 6.7 % (1.0-4.0); HEMATOCRIT 33.9 % (42.0-52.0); HEMOGLOBIN 10.1 g/dl (14.0-18.0); LYMPH # 1.6 10*3/uL (1.3-4.4); MEAN CELL VOLUME 97.7 fl (80.0-94.0); MEAN CORPUSCULAR HGB 29.1 pg (27.0-31.0); MEAN CORPUSCULAR HGB CONC 29.8 g/dl (33.0-37.0); MEAN PLATELET VOLUME 9.4 fl (9.6-12.3); MONO # 0.8 10*3/uL (0.1-1.0); NEUT # 4.3 10*3/uL (2.3-7.9); NEUT % 59.6 % (47.0-73.0); PLATELET COUNT AUTOMATED 157 10*3/uL (130-400); RED BLOOD COUNT 3.47 10*6/uL (4.50-5.90); WHITE BLOOD COUNT 7.2 10*3/uL (4.8-10.8)
--- NOTE | 2018-06-17 07:53 | NUR ---
ASSUMED CARE OF PATIENT. RECEIVED REPORT FROM JAIMEE COSTA. PATIENT RESTING COMFORTABLY IN HIS BED AT THIS TIME. NO S/S OF DISTRESS, RESP EASY. CALL LIGHT WITHIN REACH.
[2018-06-17 12:00] VITALS: BP 156/88
[2018-06-17 13:02] LABS: ACID FAST SPEC PROCESSING Concentration (.)
[2018-06-17 16:00] VITALS: BP 119/66
--- NOTE | 2018-06-17 17:22 | NUR ---
DR LÓPEZ STATES THAT SINCE THE PATIENT RECEIVED A THIRD NEGATIVE AFB SPUTUM THAT THE PATIENT CAN BE TAKEN OUT OF ISOLATION AND IS OKAY TO GO FROM HER STANDPOINT.
[2018-06-17 20:00] VITALS: BP 87/60
[2018-06-18] VITALS (16 sets, daily range): BP systolic 49–121; BP diastolic 0–87
--- NOTE | 2018-06-18 05:23 | NUR ---
PATIENT FOUND ON FLOOR WITH A BOWEL MOVEMENT. PATIENT DENIES INJURY AT THIS TIME. PRESENTS WITH PALE SKIN SLIGHTLY DIAPHORETIC, AND CONFUSED SPEECH. CALLED DR. GAN AND ADVISED.
--- NOTE | 2018-06-18 05:30 | NUR ---
PATIENT TAKEN FOR STAT CT OF HEAD.
--- NOTE | 2018-06-18 06:13 | NUR ---
SPOKE WITH DR. GAN REGARDING NEED FOR WOUND ORDERS FOR SKIN TEAR RIGHT.
--- NOTE | 2018-06-18 07:45 | NUR ---
WENT IN TO ASSESS PATIENT AND WHILE HAVING HIM SIT UP TO LISTEN TO HIS LUNGS HE FELL BACK. HIS EYES WENT TO THE RIGHT AND HE APPEARED TO SEIZE, ARMS AND LEGS AND HEAD APPEARED TO START TREMORING WHICH LASTED APPROX 15SECS IN WHICH A RAPID RESPONSE WAS CALLED AT THAT TIME. PT PALE, COLD AND WAS SPEAKING BUT DID NOT ANSWER QUESTIONS APPROPRIATELY. BP 42, HR 83, PULSE OX 96% ON 4L. DURING RAPID RESPONSE IVF BOLUS STARTED AND PT WAS TRANSFERRED BACK TO THE ICU.
--- NOTE | 2018-06-18 08:00 | NUR ---
RAPID RESPONSE CALLED. EYES SLOW TO RESPOND. STATES "I FEEL FINE." BP 52 SYSTOLIC. 1 LITER IV FLUIDS HUNG. TRANSFERR[facility] TO [facility]
[2018-06-18 08:44] LABS: MEAN CELL VOLUME 98.5 fl (80.0-94.0); MEAN CORPUSCULAR HGB 28.7 pg (27.0-31.0); MEAN CORPUSCULAR HGB CONC 29.1 g/dl (33.0-37.0); MEAN PLATELET VOLUME 10.5 fl (9.6-12.3); PLATELET COUNT AUTOMATED 155 10*3/uL (130-400); RED BLOOD COUNT 2.65 10*6/uL (4.50-5.90); RED CELL DISTRI WIDTH 13.9 % (0-14.5); WHITE BLOOD COUNT 13.1 10*3/uL (4.8-10.8)
[2018-06-18 08:45] LABS: HEMATOCRIT 26.1 % (42.0-52.0); HEMOGLOBIN 7.6 g/dl (14.0-18.0)
[2018-06-18 08:53] LABS: ACT PARTIAL THROMBO TIME 24.6 SECONDS (20.8-31.5); INTERNATIONAL NORM RATIO 1.1 (2.0-3.5)
[2018-06-18 08:54] LABS: ALBUMIN 2.6 gm/dl (3.1-4.5); CREATININE 2.23 mg/dL (0.70-1.30); POTASSIUM 4.3 mmol/L (3.5-5.1); TOTAL PROTEIN 5.7 gm/dL (6.4-8.2); TROPONIN I 0.04 ng/ml (<0.045)
[2018-06-18 08:59] LABS: TOTAL CELLS COUNTED 100 #CELLS
[2018-06-18 09:00] LABS: OVALOCYTES FEW; PLATELET SUFFICIENCY NORMAL (NORMAL)
[2018-06-18 09:46] LABS: ABG BASE EXCESS -0.6 mmol/L (-2.0-2.0); ABG HCO3 26.7 mmol/l (22-26); ABG O2 SATURATION 94.8 % (95-97); ARTERIAL BLOOD GAS PCO2 61.8 mmHg (35-45); ARTERIAL BLOOD GAS PH 7.246 (7.35-7.45); ARTERIAL BLOOD GAS PO2 72.4 mmHg (80-90)
--- NOTE | 2018-06-18 10:00 | NUR ---
LEVOPHED GTT STARTED AT 10 ANNABEL'S FOR MAP 48. 2 LITERS IVF'S FINISHED.
--- NOTE | 2018-06-18 11:14 | NUR ---
Patient is from [facility], he can return when medically stable for discharge.
--- NOTE | 2018-06-18 11:14 | NUR ---
PT IS IN CT SCAN WITH HIS NURSE. HOSPITALIST TEAM NOTIFIED OF LACTIC ACID 5.2 WHICH IS TRENDING DOWN.
--- NOTE | 2018-06-18 11:20 | NUR ---
TAKEN DOWN TO CT SCAN VIA BED.
--- NOTE | 2018-06-18 11:30 | NUR ---
NICHOLE DISLA [id number] Please refer to the physician's history and physical for past medical history, comorbid conditions, and allergies. Diagnosis: POSITIVE TB TEST Ned Score: 20,LOW OR NO RISK WOUND DESCRIPTIONS: Location of the wound: right top of hand Type of wound: skin tear Thickness: Partial Size: 3.3cm x 2.5cm x 0.1cm Tunneling: none Undermining: none Sinus Tract: none Presence of Exudate: Sanguineous Amount: Light Color: Red Odor: None Periwound Skin Appearance: Normal Wound edges: approximated Pain (associated with wound): none at time of assessment How does patient state this happened? happened this morning during a fall Surface the patient is resting on: Isoflex SKIN PREVENTION RECOMMENDATION: 1. Pressure redistribution support surface as appropriate 2. Elevate heels 3. Remove boots/TEDS every shift and reapply 4. Head of bed 30 degrees as tolerated 5. Assess nutrition and hydration 6. Manage moisture 7. Avoid the use of containment devices while in bed 8. Use absorptive products on surfaces limit layers of linens on bed 9. Turn and reposition every 1-2 hours in bed and every 1 hour in chair as tolerated 10. Weight shifts every 15 minutes while up in chair 11. Offloading with pillows or device to keep heels elevated off bed 12. Monitor skin at least every shift 13. Inspect under medical devices twice a day WOUND TREATMENT RECOMMENDATIONS: Continue current skin tear guidelines.
--- NOTE | 2018-06-18 11:30 | NUR ---
FIRST UNIT BLOOD HUNG ORDERED
--- NOTE | 2018-06-18 12:37 | NUR ---
RESIDENT OVER AT BEDSIDE INSTRUCTING ON NEED FOR MULTI-LUMEN. RESIDENT STATES " HE ISN'T ANSWERING ME." EYES WERE ROLLING SIDE TO SIDE. COLOR ASHEN. DIAPHORETIC. BP 40 SYSTOLIC. CODE BLUE CALLED. SEE CODE BLUE SHEET. 1248- INTUBTAED WITH A #7.5 ENDOTUBE AND PLACED ON VENT. 1300- RIJ MLC PLACED. 1304- SECOND UNIT BLOOD HUNG ORDERED. NEOSYNEPHRINE GTT HUNG AT 40 ANNABEL'S/MIN. LEVOPHED MAXED OUT AT 2O ANNABEL'S.
--- NOTE | 2018-06-18 13:05 | NUR ---
SECOND AND THIRD UNIT BLOOD HUNG PATIENT IS UNSTABLE AND DRS WANTING BOTH UNITS BLOOD IN TOGETHER.
--- NOTE | 2018-06-18 13:42 | NUR ---
TRANSFERRED TO [facility]. BP CURRENTLY 85/44. NEOSYNEPHRINE GTT INFUSING AT 100MCG/MIN (150CC/HR) AND LEVOPHED GTT INFUSING AT 20 ANNABEL'S (150CC/HR) [facility]IA [facility]. REPORT CALLED TO RN IN OPERATING ROOM.
--- NOTE | 2018-06-18 14:12 | NUR ---
WOUND PHOTOS NOT TAKEN ON DISCHARGE DUE TO PATIENT BEING SO UNSTABLE
--- NOTE | 2018-06-19 11:23 | NUR ---
Notified [facility] intake center of discharge
[2018-07-30 09:13] LABS: ACID FAST CULTURE Negative (.)
[2018-07-30 09:13] LABS: ACID FAST CULTURE Negative (.)
== END 2018-06-18 14:14 | disposition short-term general hospital (02) | DRG 299 ==
LOC: ED 17:01 → 4E 18:38 → ICCU 18:38 → EDHOLD 18:38 → 4E 18:52 → ICCU 06-18 08:09
PROVIDERS: Emergency Medicine; Family Medicine; Internal Medicine; Student in an Organized Health Care Education/Training Program; ADMIT Internal Medicine
PROC: 0BH18EZ Insertion of Endotracheal Airway into Trachea, Via Natural or Artificial Opening Endoscopic (ICD-10-PCS; principal; 2018-06-18)
PROC: 5A1935Z Respiratory Ventilation, Less than 24 Consecutive Hours (ICD-10-PCS; principal; 2018-06-18)
PROC: 30233N1 Transfusion of Nonautologous Red Blood Cells into Peripheral Vein, Percutaneous Approach (ICD-10-PCS; principal; 2018-06-18)
PROC: B548ZZA Ultrasonography of Superior Vena Cava, Guidance (ICD-10-PCS; principal; 2018-06-18)
PROC: 02HV33Z Insertion of Infusion Device into Superior Vena Cava, Percutaneous Approach (ICD-10-PCS; principal; 2018-06-18)
DX: I71.3 Abdominal aortic aneurysm, ruptured (principal); E43 Unspecified severe protein-calorie malnutrition; K66.1 Hemoperitoneum; G93.41 Metabolic encephalopathy; A41.9 Sepsis, unspecified organism; R65.21 Severe sepsis with septic shock; N17.0 Acute kidney failure with tubular necrosis; J96.11 Chronic respiratory failure with hypoxia; I50.32 Chronic diastolic (congestive) heart failure; D62 Acute posthemorrhagic anemia; Z68.1 Body mass index [BMI] 19.9 or less, adult; D53.9 Nutritional anemia, unspecified; I11.0 Hypertensive heart disease with heart failure; E11.9 Type 2 diabetes mellitus without complications; J43.9 Emphysema, unspecified; L30.9 Dermatitis, unspecified; E78.00 Pure hypercholesterolemia, unspecified; B99.9 Unspecified infectious disease; F17.210 Nicotine dependence, cigarettes, uncomplicated; E86.0 Dehydration; T68.XXXA Hypothermia, initial encounter; R74.0 Nonspecific elevation of levels of transaminase and lactic acid dehydrogenase [LDH]; R76.11 Nonspecific reaction to tuberculin skin test without active tuberculosis; E83.41 Hypermagnesemia; Z86.11 Personal history of tuberculosis; Z99.81 Dependence on supplemental oxygen; Z88.4 Allergy status to anesthetic agent; Z87.01 Personal history of pneumonia (recurrent); Z80.8 Family history of malignant neoplasm of other organs or systems; Z84.89 Family history of other specified conditions; Z79.899 Other long term (current) drug therapy; Z79.82 Long term (current) use of aspirin